=== PATIENT | female | born 1950 | race Caucasian/White ===

== ENCOUNTER 2022-05-08 16:22 | Inpatient (IN) | payer OTHER ==
--- NOTE | 2022-05-08 17:43 | RAD REPORT ---
EXAM DESCRIPTION: RAD - Chest Single View - 05/08/2022 5:34 pm CLINICAL HISTORY: COUGH, positive home COVID test COMPARISON: Single-view chest December 2008 TECHNIQUE: AP portable chest image was obtained 05/08/2022 5:34 pm . FINDINGS: Lungs are slightly underinflated. Under penetrated portable technique and large body habit us affects limit detail as well. No dense consolidation or mass lesions seen. Failure and volume over load are not suspected. Lung markings are prominent in the mid and lower lung rodney. Interstitial ed michelle or infiltrate is certainly possible. Heart and vasculature are normal. No measurable pleural effusion and no pneumothorax. No acute bony abnormality seen. No acute aortic findings suspected. IMPRESSION: Technically limited portable study showing prominent mid and lower lung field interstiti al findings that could be edema or infiltrate.
--- NOTE | 2022-05-08 18:05 | EDPHYS ---
Physician Documentation [facility] Name: Amna Lundberg Age: 71 yrs Sex: Female : 1950 Arrival Date: 05/08/2022 Time: 16:32 Bed 17 Private MD: ED Physician Markus Wagoner HPI: 05/08 17:27 This 71 yrs old Female presents to ER via Wheelchair with complaints of Cough, rn Congestion, Diarrhea, Breathing Difficulty. 17:27 The patient or guardian reports cough, difficulty breathing. Onset: The rn symptoms/episode began/occurred 1 week(s) ago. Severity of symptoms: At their worst the symptoms were moderate, in the emergency department the symptoms are unchanged. Modifying factors: The symptoms are alleviated by nothing, the symptoms are aggravated by nothing. Associated signs and symptoms: Pertinent positives: diarrhea, fever, rhinorrhea. The patient has not experienced similar symptoms in the past. The patient has not recently seen a physician. Pt reports COVID + after one week of cough/congestion/sob/diarrhea and getting more weak. Took home COVID test and was +. Has COPD. Reports lack of taste, and not eating/drinking lately. . Historical: - Allergies: 17:05 No Known Allergies; kr3 - PMHx: 17:05 Hypertensive disorder; Chronic obstructive lung disease; Chronic pain; Depressive kr3 disorder; - PSHx: 17:05 Total abdominal hysterectomy; kr3 - Immunization history:: Adult Immunizations not up to date. - Social history:: Smoking status: Patient/guardian denies using tobacco, the patient reports quitting approximately 35 years ago. - Family history:: not pertinent. - Hospitalizations: : No recent hospitalization is reported. 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 Exam: 17:27 Constitutional: This is a well developed, well nourished patient who is awake, alert, rn and in no acute distress. Head/Face: Normocephalic, atraumatic. ENT: dry MM, no stridor Cardiovascular: Tachycardic, regular. No pulse deficits. Respiratory: Moderate tachypnea, no retractions. + faint wheezing. Abdomen/GI: Soft, non-tender Skin: Warm, dry MS/ Extremity: Pulses equal, no cyanosis Neuro: Awake and alert, GCS 15 18:37 ECG was reviewed by the Attending Physician. rn Vital Signs: 16:58 BP 147 / 82; Pulse 108; Resp 22; Temp 98.4; Pulse Ox 98% on R/A; Weight 104.33 kg; kr3 Height 5 ft. 3 in. (160.02 cm); Pain 3/10; 18:30 BP 148 / 69; Pulse 114; Resp 20; Pulse Ox 95% on R/A; eh3 19:30 BP 117 / 74; Pulse 112; Resp 16; Pulse Ox 93% on R/A; eh3 21:05 BP 147 / 101; Pulse 105; Resp 19; Pulse Ox 94% on R/A; ll3 21:56 BP 130 / 58; Pulse 102; Resp 12; Pulse Ox 97% on 2 lpm NC; ll3 16:58 Body Mass Index 40.74 (104.33 kg, 160.02 cm) kr3 MDM: 16:33 Patient medically screened. rn 18:01 Differential Diagnosis: Bronchitis Upper Respiratory Infection Viral Syndrome Pneumonia rn Other COPD exacerbation, dehydration, weakness, electrolyte disorder. Data reviewed: vital signs, nurses notes, lab test result(s), radiologic studies, plain films, and as a result, I will admit patient. Counseling: I had a detailed discussion with the patient and/or guardian regarding: the historical points, exam findings, and any diagnostic results supporting the discharge/admit diagnosis, lab results, radiology results, the need for further work-up and treatment in the hospital. Response to treatment: the patient's symptoms have mildly improved after treatment, and as a result, I will admit patient. Admission orders: after a detailed discussion of the patient's condition and case, the admit orders are written by me. ED course: Pt with COVID infection, Acute COPD exacerbation with generalized weakness and dehydration. Will admit to hospitalist for further care. . 05/08 16:49 Order name: COVID-19/FLU A+B; Complete Time: 18:08 rn 05/08 17:05 Order name: BMP; Complete Time: 18:36 rn 05/08 17:05 Order name: Blood Culture Adult (2) rn 05/08 17:05 Order name: CBC with Diff; Complete Time: 18:31 rn 05/08 17:05 Order name: Hepatic Function; Complete Time: 18:36 rn 05/08 17:05 Order name: Magnesium; Complete Time: 18:36 rn 05/08 17:05 Order name: NT PRO-BNP; Complete Time: 18:36 rn 05/08 17:05 Order name: PT-INR; Complete Time: 18:31 rn 05/08 17:05 Order name: Ptt, Activated; Complete Time: 18:31 rn 05/08 17:05 Order name: Troponin HS; Complete Time: 18:36 rn 05/08 23:47 Order name: Lactate w/ 2H reflex if indic.; Complete Time: 00:16 EDMS 05/09 02:49 Order name: CBC with Automated Diff; Complete Time: 03:03 EDMS 05/09 03:12 Order name: Basic Metabolic Panel; Complete Time: 03:44 EDMS 05/09 03:12 Order name: Phosphorus; Complete Time: 03:44 EDMS 05/08 16:46 Order name: XRAY Chest (1 view); Complete Time: 18:01 rn 05/08 18:03 Interpretation: Abnormal. rn 05/08 17:05 Order name: EKG; Complete Time: 17:06 rn 05/08 17:05 Order name: Cardiac monitoring; Complete Time: 18:11 rn 05/08 17:05 Order name: EKG - Nurse/Tech; Complete Time: 18:37 rn 05/08 17:05 Order name: IV Saline Lock; Complete Time: 20:55 rn 05/08 17:05 Order name: Labs collected and sent; Complete Time: 18:10 rn 05/08 17:05 Order name: O2 Per Protocol; Complete Time: 18:11 rn 05/08 17:05 Order name: O2 Sat Monitoring; Complete Time: 18:11 rn 05/08 19:43 Order name: CT Chest Abdomen Pelvis W/O Contrast sb4 05/09 03:12 Order name: Lipid Profile; Complete Time: 03:44 EDMS 05/09 03:12 Order name: Magnesium; Complete Time: 03:44 EDMS EC:37 Rate is 104 beats/min. Rhythm is regular. QRS [place] is Normal. [place] interval is normal. rn QRS interval is normal. QT interval is normal. No Q waves. T waves are Normal. No ST changes noted. Clinical impression: Sinus tachycardia. Interpreted by me. Reviewed by me. Administered Medications: 17:45 Drug: Xopenex (levalbuterol) (3) 1.25 mg Route: Inhalation; eh3 21:47 Follow up: Response: No adverse reaction ll3 20:37 Drug: SOLU-Medrol (methylPrednisoLONE) 125 mg Route: IVP; Site: right forearm; ll3 21:47 Follow up: Response: No adverse reaction ll3 20:37 Drug: NS 0.9% 1000 ml Route: IV; Rate: 1000 ml; Site: right forearm; ll3 20:55 Drug: Magnesium Sulfate 2 grams Route: IVPB; Infused Over: 2 hrs; Site: right forearm; ll3 21:46 Follow up: Response: No adverse reaction; IV Status: Completed infusion; IV Intake: [id number] Disposition Summary: 05/08/22 18:04 Hospitalization Ordered Hospitalization Status: Observation rn Provider: Pop Maguire rn Condition: Stable rn Problem: new rn Symptoms: have improved rn Bed/Room Type: Standard rn Location: Telemetry/MedSurg (observation)(05/09/22 14:03) Room Assignment: [facility](05/09/22 14:03) dw Diagnosis - COPD/ Chronic obstructive pulmonary disease with (acute) exacerbation rn - SARS-associated coronavirus as the cause of diseases classified elsewhere rn Forms: - Medication Reconciliation Form rn - SBAR form rn Signatures: Dispatcher [employer] EDNM Robyn Lund RN RN Markus Lucas MD MD rn Loubet, Lynsea RN RN ll3 Martha Gallagher RN RN eh3 Lisa Echevarria RN RN kr3 Zainab Malik PA-C PA-C sb4 Corrections: (The following items were deleted from the chart) 18:51 18:04 Telemetry/MedSurg (observation) madan lewis 18:51 18:04 madan lewis 05/09 14:03 05/08 18:51 [facility] ER HOLD dw joshua 05/09 14:03 01/01 18:51 ERHOLD- dw dw
--- NOTE | 2022-05-08 18:05 | ER ---
Nurse's Notes [facility] Name: Amna Lundberg Age: 71 yrs Sex: Female : 1950 Arrival Date: 05/08/2022 Time: 16:32 Bed 17 Private MD: Diagnosis: COPD/ Chronic obstructive pulmonary disease with (acute) exacerbation;SARS-associated coronavirus as the cause of diseases classified elsewhere Presentation: 05/08 16:58 Chief complaint: Patient states: I tested positive for COVID at home. I have N/V/D for kr3 about a week. I also have COPD and I just don't feel good I told my daughter " I can't take it anymore. I can't eat or take my meds because I don't feel good. Coronavirus screen: Vaccine status: Patient reports receiving the 2nd dose of the covid vaccine. Client denies travel out of the [place] in the last 14 days. Ebola Screen: Patient denies travel to an Ebola-affected area in the 21 days before illness onset. Resp Distress? Mild respiratory distress is noted. Initial Sepsis Screen: Does the patient meet any 2 criteria? No. Patient's initial sepsis screen is negative. Does the patient have a suspected source of infection? No. Patient's initial sepsis screen is negative. Risk Assessment: Do you want to hurt yourself or someone else? Patient reports no desire to harm self or others. Onset of symptoms was May 02, 2022. 16:58 Method Of Arrival: Wheelchair kr3 16:58 Acuity: DOMENICO 3 kr3 Triage Assessment: 17:07 General: Appears distressed, uncomfortable, Behavior is calm, cooperative, appropriate kr3 for age. Pain:. Historical: - Allergies: 17:05 No Known Allergies; kr3 - PMHx: 17:05 Hypertensive disorder; Chronic obstructive lung disease; Chronic pain; Depressive kr3 disorder; - PSHx: 17:05 Total abdominal hysterectomy; kr3 - Immunization history:: Adult Immunizations not up to date. - Social history:: Smoking status: Patient/guardian denies using tobacco, the patient reports quitting approximately 35 years ago. - Family history:: not pertinent. - Hospitalizations: : No recent hospitalization is reported. Screenin:30 [facility] ED Fall Risk Assessment (Adult) History of falling in the last 3 months, eh3 including since admission No falls in past 3 months (0 pts) Confusion or Disorientation No (0 pts) Intoxicated or Sedated No (0 pts) Impaired Gait Yes (1 pt) Mobility Assist Device Used Yes (1 pt) Altered Elimination Yes (1 pt) Score/Fall Risk Level 3 or more points = High Risk Oriented to surroundings, Maintained a safe environment, Educated pt \\T\\ family on fall prevention, incl call for assistance when getting out of bed, Assessed \\T\\ reinforced patient's understanding of fall precautions, Hourly rounding (assess needs \\T\\ fall precautionary measures) done. Abuse screen: Denies threats or abuse. Denies injuries from another. Nutritional screening: No deficits noted. Tuberculosis screening: No symptoms or risk factors identified. Assessment: 17:30 General: Appears in no apparent distress. uncomfortable, Behavior is cooperative, eh3 appropriate for age, anxious. Pain: Complains of pain in abdomen. Neuro: Level of Consciousness is awake, alert, obeys commands, Oriented to person, place, time, situation. Cardiovascular: Capillary refill < 3 seconds Patient's skin is warm and dry. Respiratory: Airway is patent Respiratory effort is even, labored, Respiratory pattern is regular, symmetrical, Breath sounds are clear bilaterally. GI: Abdomen is round non-distended, Reports diarrhea, intolerance of fluids, intolerance of food, nausea, vomiting. : No signs and/or symptoms were reported regarding the genitourinary system. EENT: No signs and/or symptoms were reported regarding the EENT system. Derm: No signs and/or symptoms reported regarding the dermatologic system. Musculoskeletal: No signs and/or symptoms reported regarding the musculoskeletal system. Circulation, motion, and sensation intact. Range of motion: intact in all extremities. 18:30 Reassessment: Patient appears in no apparent distress at this time. Patient and/or eh3 family updated on plan of care and expected duration. Pain level reassessed. 19:30 Reassessment: Patient appears in no apparent distress at this time. Patient and/or eh3 family updated on plan of care and expected duration. Pain level reassessed. Vital Signs: 16:58 BP 147 / 82; Pulse 108; Resp 22; Temp 98.4; Pulse Ox 98% on R/A; Weight 104.33 kg; kr3 Height 5 ft. 3 in. (160.02 cm); Pain 3/10; 18:30 BP 148 / 69; Pulse 114; Resp 20; Pulse Ox 95% on R/A; eh3 19:30 BP 117 / 74; Pulse 112; Resp 16; Pulse Ox 93% on R/A; eh3 21:05 BP 147 / 101; Pulse 105; Resp 19; Pulse Ox 94% on R/A; ll3 21:56 BP 130 / 58; Pulse 102; Resp 12; Pulse Ox 97% on 2 lpm NC; ll3 16:58 Body Mass Index 40.74 (104.33 kg, 160.02 cm) kr3 ED Course: 16:32 Patient arrived in ED. rg4 16:33 Markus Wagoner MD is Attending Physician. rn 17:04 Triage completed. kr3 17:18 Stephanie Dunne, RN is Primary Nurse. ss 17:18 COVID-19/FLU A+B Sent. ss 17:21 COVID swab sent to lab. Flu and/or RSV swab sent to lab. mm9 17:36 XRAY Chest (1 view) In Process Unspecified. EDMS 18:00 Initial lab(s) drawn, by mt, sent to lab. First set of blood cultures drawn. mm9 18:04 Pop Maguire is Hospitalizing Provider. rn 18:10 Troponin HS Sent. mm9 18:10 Ptt, Activated Sent. mm9 18:10 PT-INR Sent. mm9 18:10 NT PRO-BNP Sent. mm9 18:10 Magnesium Sent. mm9 18:10 Hepatic Function Sent. mm9 18:10 CBC with Diff Sent. mm9 18:10 Blood Culture Adult (2) Sent. mm9 18:10 BMP Sent. mm9 18:11 Patient has correct armband on for positive identification. Bed in low position. Call mm9 light in reach. Side rails up X2. Adult w/ patient. Warm blanket given. environmental monitoring technician on. Pulse ox on. NIBP on. 18:37 Blood Culture Adult (2) Sent. mm9 18:38 EKG done, by ED staff, reviewed by Markus Wagoner MD. mm9 19:00 Patient placed in an exam room, on a stretcher, on pulse oximetry. ll3 19:10 Primary Nurse role handed off by Stephanie Dunne, RN mw2 19:15 Assisted with bedpan. Assisted with dressing. Cleaned of incontinence. mb4 20:12 Inserted saline lock: 24 gauge in right forearm, using aseptic technique. ds4 23:23 No provider procedures requiring assistance completed. Patient admitted, IV remains in ll3 place. Administered Medications: 17:45 Drug: Xopenex (levalbuterol) (3) 1.25 mg Route: Inhalation; eh3 21:47 Follow up: Response: No adverse reaction ll3 20:37 Drug: SOLU-Medrol (methylPrednisoLONE) 125 mg Route: IVP; Site: right forearm; ll3 21:47 Follow up: Response: No adverse reaction ll3 20:37 Drug: NS 0.9% 1000 ml Route: IV; Rate: 1000 ml; Site: right forearm; ll3 20:55 Drug: Magnesium Sulfate 2 grams Route: IVPB; Infused Over: 2 hrs; Site: right forearm; ll3 21:46 Follow up: Response: No adverse reaction; IV Status: Completed infusion; IV Intake: [id number] Medication: 23:24 VIS not applicable for this client. ll3 Intake: 21:46 IV: 50ml; Total: 50ml. ll3 Outcome: 18:04 Decision to Hospitalize by Provider. rn 23:23 Admitted to ER Hold. Please see [facility] for further documentation. ll3 23:23 Condition: stable 23:23 Instructed on the need for admit. 05/09 14:52 Patient left the ED. ap3 Signatures: Dispatcher [employer] EDMS Markus Wagoner MD MD rn Smirch, Shelby, RN RN Sudarshan Villalta ds4 Rachael Bella rg4 Gracie Shaw RN RN ap3 Pippa Hawkins mw2 Polina Pike mb4 Sobeida Louis RN RN ll3 Martha Gallagher RN RN 3 Lisa Echevarria RN RN nory3 Romy Bowen mm9 Corrections: (The following items were deleted from the chart) 05/08 20:08 17:30 Client placed on continuous cardiac and pulse oximetry monitoring. NIBP eh3 monitoring applied. eh3
[2022-05-08 18:06] LABS: SARS-COV-2 RT PCR POSITIVE (NEGATIVE)
[2022-05-08 18:17] LABS: Absolute Lymphocytes (CBC) 0.9 K/uL (0.7-4.9); Hematocrit 35.1 % (36.0-45.0); Lymphocytes % 11.6 % (15.3-44.8); MCV 85.8 fL (80-100); MPV 9.3 fL (7.6-11.3); RBC Red Blood Cell Count 4.09 M/uL (3.86-4.86)
[2022-05-08 18:23] LABS: Protime INR 1.15
[2022-05-08] MEDS ORDERED: NA CHLORIDE 0.9% 1,000 ML ONE ×2 (18:31→23:06)
[2022-05-08] MEDS ORDERED: METHYLPREDNISOLONE 125 MG INJ ONE (18:31)
[2022-05-08] MEDS ORDERED: LEVALBUTEROL 1.25 MG/3 ML NEB ONE (18:31)
[2022-05-08 18:35] LABS: Albumin 3.5 g/dL (3.4-5.0); Bilirubin Direct 0.1 mg/dL (0-0.2); Bilirubin Total 0.4 mg/dL (0.2-1.0); Magnesium 1.5 mg/dL (1.6-2.4); Potassium 4.2 mmol/L (3.5-5.1); Protein, Total 8.6 g/dL (6.4-8.2); Troponin High Sensitivity 13.9 pg/mL (<58.9)
--- NOTE | 2022-05-08 19:15 | P.HP ---
Certification for Inpatient Patient admitted to: Inpatient With expected LOS: <2 Midnights Patient will require the following post-hospital care: None Practitioner: I am a practitioner with admitting privileges, knowledge of patient current condition, hospital course, and medical plan of care. Services: Services provided to patient in accordance with Admission requirements found in Title 42 Section 412.3 of the Code of Federal Regulations Patient History Date of Service: 05/08/22 Reason for admission: COVID, Dehydration History of Present Illness: Patient is a 71 year old female with past medical history of hypertension, COPD, and anemia who presented to the emergency department with complaints of shortness of breath, fever, nausea, vomiting, diarrhea, and covid. She was found to be tachycardic, tachypneic, and febrile. Her labs are significant for hgb 11.5, BUN 43, Cr 1.91, mag 1.5, alk phos 168, BNP 464, covid+. Chest xray showed "Technically limited portable study showing prominent mid and lower lung field interstitial findings that could be edema or infiltrate." She received 1L fluid, breathing treatment, solumedrol, and supplemental magnesium in the emergency department. She will be admitted for further management. Allergies No Known Drug Allergies Allergy (Unverified 04/17/14 00:10) Unknown Home medications list reviewed: Yes - Past Medical/Surgical History Diabetic: No -: Hypertension -: COPD -: Appendectomy -: Hysterectomy -: Cholecystectomy Psychosocial/ Personal History: Patient lives at home with her daughter. - Family History Mother -: Cancer - Social History Smoking Status: Former smoker Alcohol use: No CD- Drugs: No Caffeine use: Yes Place of Residence: Home Review of Systems General: Fever, Weakness Respiratory: Shortness of Breath Gastrointestinal: Nausea, Vomiting, Diarrhea Physical Examination - Vital Signs Temperature: 98.4 F Blood Pressure: 147/82 Pulse: 108 Respirations: 22 Pulse Ox (%): 98 - Physical Exam General: Alert, In no apparent distress, Obese HEENT: Atraumatic, PERRLA, EOMI, Sclerae nonicteric Neck: Supple, 2+ carotid pulse no bruit, No LAD, Without JVD or thyroid abnormality Respiratory: Clear to auscultation bilaterally, Normal air movement Cardiovascular: Regular rate/rhythm, Normal S1 S2 Gastrointestinal: Normal bowel sounds, No tenderness Musculoskeletal: No tenderness Integumentary: No rashes Neurological: Normal speech, Normal strength at 5/5 x4 extr, Normal tone, Normal affect - Studies Laboratory Data (last 24 hrs) 05/08/22 18:00: PT 12.6 H, INR 1.15, APTT 24.6 05/08/22 18:00: WBC 7.40, Hgb 11.5 L, Hct 35.1 L, Plt Count 229 05/08/22 18:00: Sodium 138, Potassium 4.2, BUN 43 H, Creatinine 1.91 H, Glucose 109 H, Magnesium 1.5 L, Total Bilirubin 0.4, AST 22, ALT 21, Alkaline Phosphatase 168 H Assessment and Plan - Problems (Diagnosis) (1) COVID-19 Current Visit: Yes Status: Acute (2) Hypertension Current Visit: Yes Status: Chronic Qualifiers: Hypertension type: primary hypertension Qualified Code(s): I10 - Essential (primary) hypertension (3) RUTHIE (acute kidney injury) Current Visit: Yes Status: Acute (4) COPD (chronic obstructive pulmonary disease) Current Visit: Yes Status: Chronic Qualifiers: COPD type: unspecified COPD Qualified Code(s): J44.9 - Chronic obstructive pulmonary disease, unspecified (5) Anemia Current Visit: Yes Status: Chronic Qualifiers: Anemia type: unspecified type Qualified Code(s): D64.9 - Anemia, unspecified (6) Dehydration Current Visit: Yes Status: Acute - Plan Patient is admitted for further management of COVID-19/dehydration. Continue supportive measures with supplemental oxygen, breathing treatments, antitussives, decongestants. Patient is not requiring supplemental O2 at this time. IV hydration. Physical therapy consult. Solu-Medrol, incentive spirometry, vitamin C and zinc ordered daily. Patient meet sepsis criteria although source is viral, COVID-19. Blood cultures obtained. Isolation precautions in place. RUTHIE likely prerenal secondary to dehydration. Patient reports she has not been able to hold anything down and had n/v/d. Will obtain CT chest/abdomen/pelvis to rule out any other infection. Monitor and replete electrolytes per protocol. Reconcile and continue home medications. Lovenox for VTE prophylaxis. Full code. Discharge Plan: Home Plan to discharge in: 48 Hours - Advance Directives Does patient have a Living Will: No Does patient have a Durable POA for Healthcare: No - Code Status/Comfort Care Code Status Assessed: Yes Code Status: Full Code Physician Review: Patient Assessed, Agree with Above Assessment and Plan Critical Care: No Time Spent Managing Pts Care (In Minutes): 50
[2022-05-08] MEDS ORDERED: Magnesium Sulfate 2gm IVPB 2 G/50 ML BAG IV ONE (20:01)
[2022-05-08] MEDS: NA CHLORIDE 0.9% 1,000 ML IV SCH (22:55)
[2022-05-08] MEDS ORDERED: ACETAMINOPHEN 500 MG TAB PO PRN (22:55)
[2022-05-08] MEDS ORDERED: ONDANSETRON 4 MG/2 ML VIAL IV PRN (22:55)
[2022-05-08] MEDS ORDERED: BENZONATATE 100 MG CAP PO PRN (22:55)
[2022-05-08] MEDS ORDERED: IPRATROPIUM BROM 0.5MG/2.5ML NEB PRN (22:55)
[2022-05-08] MEDS ORDERED: ALBUTEROL 2.5 MG/3 ML NEB SOL NEB PRN (22:55)
[2022-05-08] MEDS ORDERED: GUAIFENESIN 600 MG SA TAB PO PRN (22:55)
[2022-05-08 23:13] VITALS: BMI 40.7
[2022-05-09] MEDS ORDERED: METHYLPREDNISOLONE 40 MG INJ IV SCH (01:00)
[2022-05-09 02:47] LABS: Absolute Lymphocytes (CBC) 0.3 K/uL (0.7-4.9); Hematocrit 31.4 % (36.0-45.0); Lymphocytes % 4.8 % (15.3-44.8); MCV 86.6 fL (80-100); RBC Red Blood Cell Count 3.63 M/uL (3.86-4.86)
[2022-05-09 03:03] LABS: Magnesium 2.4 mg/dL (1.6-2.4)
[2022-05-09] MEDS: METHYLPREDNISOLONE 40 MG INJ IV SCH ×4 (05:00→17:09)
[2022-05-09] MEDS ORDERED: METHYLPREDNISOLONE 40 MG INJ ONE ×2 (05:25→09:18)
[2022-05-09] MEDS: ENOXAPARIN 30 MG/0.3 ML SQ SCH (09:00)
[2022-05-09] MEDS: ASCORBIC ACID 500 MG TABLET PO SCH (09:00)
[2022-05-09] MEDS: ZINC SULFATE 220 MG CAP PO SCH (09:00)
[2022-05-09] MEDS ORDERED: ZINC SULFATE 220 MG CAP ONE (09:18)
[2022-05-09] MEDS ORDERED: ASCORBIC ACID 500 MG TABLET ONE (09:18)
[2022-05-09] MEDS ORDERED: NA CHLORIDE 0.9% 1,000 ML ONE (09:19)
[2022-05-09] MEDS ORDERED: ENOXAPARIN 30 MG/0.3 ML SQ ONE (09:19)
[2022-05-09] MEDS: NA CHLORIDE 0.9% 1,000 ML IV SCH ×2 (12:15→22:25)
--- NOTE | 2022-05-09 17:37 | P.PN ---
Subjective Date of Service: 05/09/22 Chief Complaint: COVID, Dehydration Patient reports generalized weakness. She still complaining of nausea and has not tolerated diet. Physical Examination - Vital Signs Temperature: 98.8 F Blood Pressure: 178/107 Pulse: 119 Respirations: 20 Pulse Ox (%): 96 - Studies Laboratory Data (last 24 hrs) 05/08/22 18:00: PT 12.6 H, INR 1.15, APTT 24.6 05/08/22 18:00: WBC 7.40, Hgb 11.5 L, Hct 35.1 L, Plt Count 229 05/08/22 18:00: Sodium 138, Potassium 4.2, BUN 43 H, Creatinine 1.91 H, Glucose 109 H, Magnesium 1.5 L, Total Bilirubin 0.4, AST 22, ALT 21, Alkaline Phosphatase 168 H Assessment And Plan - Current Problems (Diagnosis) (1) RUTHIE (acute kidney injury) Current Visit: Yes Status: Acute (2) COVID-19 Current Visit: Yes Status: Acute (3) Dehydration Current Visit: Yes Status: Acute (4) COPD (chronic obstructive pulmonary disease) Current Visit: Yes Status: Chronic Qualifiers: COPD type: unspecified COPD Qualified Code(s): J44.9 - Chronic obstructive pulmonary disease, unspecified - Plan Physical Exam General: Alert, In no apparent distress, Obese Respiratory: Clear to auscultation bilaterally, Normal air movement Cardiovascular: Regular rate/rhythm, Normal S1 S2 Gastrointestinal: Normal bowel sounds, No tenderness Musculoskeletal: No tenderness Integumentary: No rashes Neurological: No focal motor deficit. Plan: Continue supportive measures. Antiemetics as needed. IV fluid. Diet as tolerated. Continue IV steroid. Monitor renal function for improvement. Resume home antihypertensives. Possible discharge in a.m.
--- NOTE | 2022-05-09 22:10 | P.PN ---
Date of Service: 05/10/22 Subjective: constipated; no BM in ~4 days with slight nausea ROS: A complete review of systems was performed and is negative except as mentioned above Physical Exam: Gen: AOx3; fatigued appearing HEENT: normal conjunctiva, sclera anicteric CV: regular rate & rhythm with intermittently tachycardia, no edema Pulm: non-labored respirations, diminished at bases bilaterally Abd: soft, non-tender, non-distended Neuro: normal speech, normal affect, moves all extremities vitals reviewed Problem List RUTHIE COVID-19 pneumonia Constipation Dehydration acute on chronic COPD exacerbation Continue supportive measures. Antiemetics as needed. IV fluid. Diet as tolerated. transition IV to PO steroid Resume home antihypertensives. nausea and constipation has some occasional constipation at home and takes a pill that "Clears her out" but unable to tell me what pill will try miralax, add stool softener encourage ambulation VTE: lovenox Code: full Dispo: home, ~1-2 days Time Spent Managing Pts Care (In Minutes): 35
[2022-05-10] MEDS: METHYLPREDNISOLONE 40 MG INJ IV SCH ×2 (01:21→08:20)
[2022-05-10 05:43] LABS: Hematocrit 35.5 % (36.0-45.0); MCV 86.2 fL (80-100); MPV 9.1 fL (7.6-11.3); RBC Red Blood Cell Count 4.12 M/uL (3.86-4.86)
[2022-05-10 06:44] LABS: C-Reactive Protein 18.3 mg/L (<3.00); Ferritin 179.6 ng/mL (8-388); Potassium 4.2 mmol/L (3.5-5.1)
[2022-05-10] MEDS: NA CHLORIDE 0.9% 1,000 ML IV SCH ×2 (08:19→16:38)
[2022-05-10] MEDS: ENOXAPARIN 30 MG/0.3 ML SQ SCH (08:20)
[2022-05-10] MEDS: POTASS/SODIUM PHOSPHATE 1 PKT POWD.PACK PO SCH ×2 (08:20→09:56)
[2022-05-10] MEDS: ASCORBIC ACID 500 MG TABLET PO SCH (08:20)
[2022-05-10] MEDS: ZINC SULFATE 220 MG CAP PO SCH (08:20)
[2022-05-10] MEDS ORDERED: POLYETHYL GLY 3350 17 GM/DOSE PO ONE (15:00)
[2022-05-10] MEDS: predniSONE 20 MG TAB PO SCH (16:37)
[2022-05-10] MEDS ORDERED: ALBUTEROL 2.5 MG/3 ML NEB SOL NEB PRN (17:00)
[2022-05-10] MEDS: DOCUSATE NA 100 MG CAP PO SCH (21:00)
[2022-05-11 00:13] VITALS: O2SAT 93
[2022-05-11] MEDS: NA CHLORIDE 0.9% 1,000 ML IV SCH (05:49)
[2022-05-11 07:27] LABS: Hematocrit 29.6 % (36.0-45.0); MPV 8.9 fL (7.6-11.3); RBC Red Blood Cell Count 3.48 M/uL (3.86-4.86)
[2022-05-11 07:32] LABS: Specific Gravity 1.012 (1.005-1.030); Urine Bacteria <20 /HPF (<20); Urine Bilirubin NEGATIVE (Negative); Urine Blood Negative (Negative); Urine Clarity Clear (Clear); Urine Color Light-Yellow (Yellow); Urine Glucose NEGATIVE (Negative); Urine Protein TRACE (Negative); Urine RBC <5 /HPF (None Seen); Urine Urobilinogen Normal (Normal); Urine pH 5.5 (5.0-7.0)
[2022-05-11 07:39] LABS: C-Reactive Protein 7.24 mg/L (<3.00); Potassium 4.3 mmol/L (3.5-5.1)
[2022-05-11 07:41] LABS: Magnesium 1.4 mg/dL (1.6-2.4)
[2022-05-11] MEDS ORDERED: Magnesium Sulfate 2gm IVPB 2 G/50 ML BAG IV ONE (08:00)
[2022-05-11] MEDS: ZINC SULFATE 220 MG CAP PO SCH (08:24)
[2022-05-11] MEDS: ENOXAPARIN 30 MG/0.3 ML SQ SCH (08:24)
[2022-05-11] MEDS: ASCORBIC ACID 500 MG TABLET PO SCH (08:24)
[2022-05-11] MEDS: predniSONE 20 MG TAB PO SCH (08:24)
[2022-05-11] MEDS: DOCUSATE NA 100 MG CAP PO SCH (08:25)
[2022-05-11 08:32] VITALS: TEMP 96.8
[2022-05-11 08:48] LABS: Platelet Estimate ADEQ
[2022-05-11 08:49] LABS: Blood Morphology Comment NOT SEEN (NOT SEEN); White Blood Cell Scan OK (OK)
[2022-05-11 12:08] VITALS: BP 131/75
--- NOTE | 2022-05-11 16:09 | EKG ---
Test Date: 2022-05-08 Test Time: 18:26:38 Mobile Paint Specialist: SHELL MEASUREMENT RESULTS: Intervals: Rate: 104 [place]: 146 QRSD: 84 QT: 340 QTc: 447 [place]: P: 76 [place]: 146 QRS: 27 T: 101 INTERPRETIVE STATEMENTS: Sinus tachycardia Nonspecific ST and T wave abnormality Abnormal ECG No previous ECG available for comparison Electronically Signed On 05-11-22 16:06:34 WAFFLE MACHINE OPERATOR by Victoriano Ramos
--- NOTE | 2022-05-12 23:26 | P.DS ---
Admission Date: 05/08/22 Discharge Date: 05/11/22 Disposition: ROUTINE DISCHARGE Discharge Condition: GOOD Reason for Admission: COVID, Dehydration Brief History of Present Illness: 71 year old female with past medical history of hypertension, COPD, and anemia who presented to the emergency department with complaints of shortness of breath, fever, nausea, vomiting, diarrhea, and covid. She was found to be tachycardic, tachypneic, and febrile. Her labs are significant for hgb 11.5, BUN 43, Cr 1.91, mag 1.5, alk phos 168, BNP 464, covid+. Chest xray showed "Technically limited portable study showing prominent mid and lower lung field interstitial findings that could be edema or infiltrate." She received 1L fluid, breathing treatment, solumedrol, and supplemental magnesium in the emergency department. She will be admitted for further management. Hospital Course: Problem List RUTHIE COVID-19 pneumonia Constipation Dehydration acute on chronic COPD exacerbation Patient presented with not feeling well, COVID, dehydrated, and constipated. Renal function improved with IV fluids. She improved with steroids, miralax, IV fluids, and oxygen supplementation. On day of discharge, she was eating well, had a BM, and was breathing comfortably on room air. She was deemed stable for discharge home. Prescribed 4 more days of prednisone 20mg twice daily. Follow up PCP within 1 week Blood pressure ranged from normal to mildly elevated. Her home blood pressure medications - amlodipine-Benazepril and spironolactone were held secondary to her decreased renal function and stable blood pressure. Recommend to continue to hold these medications. Follow up with PCP within 1 week to be evaluated for restarting these medications. Vital Signs/Physical Exam: Temp Pulse Resp BP Pulse Ox 96.8 F 84 18 131/75 95 05/11/22 12:00 05/11/22 12:00 05/11/22 12:00 05/11/22 12:00 05/11/22 12:00 Physical Exam: Gen: AOx3; NAD HEENT: normal conjunctiva, sclera anicteric CV: regular rate & rhythm, no edema Pulm: non-labored respirations, diminished at bases bilaterally Abd: soft, non-tender, non-distended Neuro: normal speech, normal affect, moves all extremities Laboratory Data at Discharge: WBC 6.90 K/uL (4.3-10.9) 05/11/22 07:11 Hgb 9.7 g/dL (12.0-15.0) L D 05/11/22 07:11 Hct 29.6 % (36.0-45.0) L 05/11/22 07:11 Plt Count 234 K/uL (152-406) D 05/11/22 07:11 PT 12.6 SECONDS (9.5-12.5) H 05/08/22 18:00 INR 1.15 05/08/22 18:00 APTT 24.6 SECONDS (24.3-36.9) 05/08/22 18:00 Sodium 139 mmol/L (136-145) 05/11/22 07:11 Potassium 4.3 mmol/L (3.5-5.1) 05/11/22 07:11 BUN 28 mg/dL (7-18) H 05/11/22 07:11 Creatinine 1.49 mg/dL (0.55-1.02) H 05/11/22 07:11 Glucose 113 mg/dL (74-106) H 05/11/22 07:11 Phosphorus 2.0 mg/dL (2.5-4.9) L 05/09/22 02:10 Magnesium 1.4 mg/dL (1.6-2.4) L* 05/11/22 07:11 Total Bilirubin 0.4 mg/dL (0.2-1.0) 05/08/22 18:00 AST 22 U/L (15-37) 05/08/22 18:00 ALT 21 U/L (13-56) 05/08/22 18:00 Alkaline Phosphatase 168 U/L (45-117) H 05/08/22 18:00 Triglycerides 127 mg/dL (<150) 05/09/22 02:10 Cholesterol 179 mg/dL (<200) 05/09/22 02:10 HDL Cholesterol 39 mg/dL (40-60) L 05/09/22 02:10 Cholesterol/HDL Ratio 4.59 05/09/22 02:10 Home Medications: Amlodipine Besylate/Benazepril [Amlodipine-Benazepril 10-40 mg] 1 each PO DAILY 05/10/22 Atorvastatin Calcium 40 mg PO DAILY 05/10/22 Esomeprazole Mag Trihydrate [Nexium] 40 mg PO DAILY 05/10/22 Hydrocodone Bit/Acetaminophen [Hydrocodon-Acetaminoph 7.5-325] 1 tab PO TID PRN 05/10/22 Levothyroxine Sodium [Levothyroxine] 100 mcg PO BEDTIME 05/10/22 Pioglitazone HCl [Actos] 15 mg PO DAILY 05/10/22 Spironolactone 25 mg PO DAILY 05/10/22 predniSONE [Prednisone*] 20 mg PO BIDL 4 Days #8 tab 05/11/22 New Medications: predniSONE [Prednisone*] 20 mg PO BIDL 4 Days #8 tab Physician Discharge Instructions: Patient presented with not feeling well, COVID, dehydrated, and constipated. Renal function improved with IV fluids. She improved with steroids, miralax, IV fluids, and oxygen supplementation. On day of discharge, she was eating well, had a BM, and was breathing comfortably on room air. She was deemed stable for discharge home. Prescribed 4 more days of prednisone 20mg twice daily. Follow up PCP within 1 week Blood pressure ranged from normal to mildly elevated. Her home blood pressure medications - amlodipine-Benazepril and spironolactone were held secondary to her decreased renal function and stable blood pressure. Recommend to continue to hold these medications. Follow up with PCP within 1 week to be evaluated for restarting these medications. Followup: NONE,NONE [Primary Care Provider] - Time spent managing pt's care (in minutes): 45
== END 2022-05-11 13:38 | disposition home or self-care (01) | DRG 871 ==
LOC: ER 16:22 → ERHOLD 19:05 → 4TH 05-09 14:31
PROVIDERS: ADMIT Internal Medicine; ATTEND Hospitalist
DX: A41.89 Other specified sepsis (principal); U07.1 COVID-19; J44.1 Chronic obstructive pulmonary disease with (acute) exacerbation; N17.9 Acute kidney failure, unspecified; Z68.41 Body mass index [BMI] 40.0-44.9, adult; E66.9 Obesity, unspecified; K59.00 Constipation, unspecified; I10 Essential (primary) hypertension; E86.0 Dehydration; Z90.49 Acquired absence of other specified parts of digestive tract; Z79.52 Long term (current) use of systemic steroids; Z79.899 Other long term (current) drug therapy; Z90.710 Acquired absence of both cervix and uterus; Z87.891 Personal history of nicotine dependence
CPT/HCPCS: 0240U; 36415; 71045; 80048; 80061; 80076; 81001; 82728; 83605; 83735; 83880; 84100; 84484; 85025; 85027; 85610; 85730; 86140; 87040; 93005; 94760; 96365; 96375; 97116; 97161; 97530; 99285; J1650; J2405; J2920; J2930; J3475; J7030; J7512; J7614

== ENCOUNTER 2022-06-17 18:00 | Emergency (ER) | payer OTHER ==
--- OUTSIDE RECORDS SUMMARY | 2022-06-17 18:05 | XMS REPORT | Continuity of Care Document ---
:1950 Author Organization [facility] t Address [address] [place] [address] Dr. [place] [address] [place] [id number] Care Team Providers Name Role Phone Unavailable Unavailable Unavailable Problems This patient has no known problems. Allergies, Adverse Reactions, Alerts This patient has no known allergies or adverse reactions. Medications This patient has no known medications. Procedures This patient has no known procedures. Encounters Start End Encounter Admission Attending Care Care Encounter Source Date/Time Date/Time Type Type Clinicians Facility Department ID 2022-06-16 2022-06-16 Outpatient [facility] [id number] 16:08:21 16:08:21 [id number] [address] Joesph Results This patient has no known results.
[2022-06-17 19:07] LABS: Absolute Lymphocytes (CBC) 1.2 K/uL (0.7-4.9); Hematocrit 30.1 % (36.0-45.0); Lymphocytes % 9.1 % (15.3-44.8); MCV 83.9 fL (80-100); RBC Red Blood Cell Count 3.59 M/uL (3.86-4.86)
[2022-06-17 19:11] LABS: Protime INR 1.3
--- NOTE | 2022-06-17 19:15 | RAD REPORT ---
EXAM DESCRIPTION: RAD - Chest Single View - 06/17/2022 7:05 pm CLINICAL HISTORY: COUGH COMPARISON: Chest Single View dated 05/08/2022; ABDOMEN ACUTE SERIES dated 12/25/2008 FINDINGS: Lines: None. Lungs: No evidence of edema or pneumonia. Pleural: No significant pleural effusions or pneumothorax. Cardiac: The heart size is within normal limits. Mediastinum: Within normal limits. Bones: No acute fractures. Other: None IMPRESSION: No acute cardiopulmonary disease.
[2022-06-17] MEDS ORDERED: FAMOTIDINE 20 MG/2 ML VIAL IV ONE (19:25)
[2022-06-17] MEDS ORDERED: ONDANSETRON 4 MG/2 ML VIAL ONE (19:25)
[2022-06-17 19:29] LABS: Albumin 2.8 g/dL (3.4-5.0); Bilirubin Direct 0.2 mg/dL (0-0.2); Bilirubin Total 0.4 mg/dL (0.2-1.0); Potassium 3.2 mmol/L (3.5-5.1); Protein, Total 7.6 g/dL (6.4-8.2); Troponin High Sensitivity 15.5 pg/mL (<58.9)
[2022-06-17 19:32] LABS: Urine Blood Negative (Negative); Urine Glucose Negative (Negative); Urine Protein 1+ (Negative); Urine Specific Gravity 1.025 (1.005-1.030)
[2022-06-17 19:50] LABS: Urine Bacteria <20 /HPF (<20); Urine Crystals Unidentified Few /HPF (None Seen); Urine Mucus Slight /HPF (None Seen); Urine RBC <5 /HPF (None Seen); Urine WBC Clump Rare /HPF (None Seen)
[2022-06-17 19:57] LABS: Magnesium 1.5 mg/dL (1.6-2.4)
[2022-06-17 20:06] LABS: SARS-COV-2 RT PCR POSITIVE (NEGATIVE)
[2022-06-17] MEDS ORDERED: NA CHLORIDE 0.9% 500 ML ONE (20:10)
--- NOTE | 2022-06-17 20:54 | RAD REPORT ---
EXAM DESCRIPTION: CTAbdomen Pelvis W Contrast - 06/17/2022 8:43 pm CLINICAL HISTORY: NAUSEA / VOMITING COMPARISON: No comparisons TECHNIQUE: CT of the abdomen and pelvis was performed. All CT scans are performed using dose optimization technique as appropriate and may include automated exposure control or mA/KV adjustment according to patient size. FINDINGS: Lower chest: No acute abnormality. Liver: No acute abnormality or suspicious lesions. Biliary: Cholecystectomy. Mild extrahepatic biliary duct dilatation is likely related to postcholecys tectomy state. Stomach: No significant focal abnormality. Duodenum: No significant focal abnormality. Pancreas: Atrophy. No pancreatic mass. Spleen: No significant abnormality. Adrenal: No suspicious lesions. Kidney/ureter: No hydronephrosis. No renal calculi. Retroperitoneum: No retroperitoneal adenopathy. Vascular: No aneurysm. Atherosclerosis. Bowel: No significant focal abnormality. Peritoneum: No ascites or free air. Ventral abdominal wall laxity. Bladder: Grossly unremarkable. Reproductive: No adnexal masses. Hysterectomy Bones: No acute fracture. Multilevel degenerative changes are present in the spine. Schmorl's nodes p resent at L4 and L5. Other: n/a IMPRESSION: No acute intra-abdominal or pelvic finding. Incidental findings as noted above.
[2022-06-17] MEDS ORDERED: POTASSIUM 25 MEQ EFFERV TAB ONE (21:21)
[2022-06-17] MEDS ORDERED: MAGNESIUM SULFATE 1 gm IVPB 1 GM/100 ML BAG IV ONE (21:22)
[2022-06-17] MEDS ORDERED: CEFTRIAXONE 1000 MG/VIAL ONE (21:58)
--- NOTE | 2022-06-17 22:25 | ER ---
Nurse's Notes [facility] Name: Amna Lundberg Age: 71 yrs Sex: Female : 1950 Arrival Date: 06/17/2022 Time: 18:02 Bed 8 Private MD: Diagnosis: Nausea with vomiting, unspecified;Diarrhea, unspecified;Hypokalemia;SARS-associated coronavirus as the cause of diseases classified elsewhere Presentation: 06/17 18:19 Chief complaint: Pt's daughter states "she's been having diarrhea, throwing up, aa5 headache for 2 days and I took her to a clinic and they said she is COVID positive but she is getting weaker". Pt also reports SOB. Onset of symptoms was June 2022. 18:19 Acuity: DOMENICO 3 aa5 18:19 Coronavirus screen: Client reports previous positive COVID test result. Ebola Screen: aa5 Patient denies travel to an Ebola-affected area in the 21 days before illness onset. Initial Sepsis Screen: Does the patient meet any 2 criteria? HR > 90 bpm. Does the patient have a suspected source of infection? Yes:. Risk Assessment: Do you want to hurt yourself or someone else? Patient reports no desire to harm self or others. 18:19 Method Of Arrival: Wheelchair aa5 Triage Assessment: 21:47 General: Appears in no apparent distress. uncomfortable, obese, Behavior is vc1 cooperative. GI: Reports diarrhea, intolerance of food, nausea. Historical: - Allergies: 18:19 No Known Allergies; aa5 - PMHx: 18:19 Chronic obstructive lung disease; Chronic pain; depressive disorder; Hypertensive aa5 disorder; - PSHx: 18:19 Total abdominal hysterectomy; aa5 - Immunization history:: Adult Immunizations unknown. - Social history:: Smoking status: Patient denies any tobacco usage or history of. Screenin:39 Abuse screen: Denies threats or abuse. Nutritional screening: No deficits noted. vc1 Tuberculosis screening: No symptoms or risk factors identified. 21:48 [facility] ED Fall Risk Assessment (Adult) History of falling in the last 3 months, vc1 including since admission No falls in past 3 months (0 pts) Confusion or Disorientation No (0 pts) Intoxicated or Sedated No (0 pts) Impaired Gait Yes (1 pt) Mobility Assist Device Used Yes (1 pt) Altered Elimination Yes (1 pt) Score/Fall Risk Level 3 or more points = High Risk Oriented to surroundings, Maintained a safe environment, Educated pt \\T\\ family on fall prevention, incl call for assistance when getting out of bed. Assessment: 21:25 Reassessment: Patient appears in no apparent distress at this time. pt refused aa9 potassium po, notified provider. 21:46 Pain: Complains of pain in headache. GI: Abdomen is flat, Reports diarrhea, nausea, vc1 vomiting. 22:55 Reassessment: Patient appears in no apparent distress at this time. Patient is alert, aa9 oriented x 3, equal unlabored respirations, skin warm/dry/pink. Patient states feeling better. Vital Signs: 18:19 BP 136 / 88; Pulse 108; Resp 20 S; Temp 97.1(TE); Pulse Ox 99% on R/A; Weight 90.72 kg aa5 (R); Height 5 ft. 3 in. (160.02 cm) (R); 19:38 BP 153 / 83; Pulse 107; Resp 18; Pulse Ox 96% on R/A; vc1 20:30 BP 124 / 75; Pulse 98; Resp 18; Pulse Ox 94% ; vc1 18:19 Body Mass Index 35.43 (90.72 kg, 160.02 cm) aa5 ED Course: 18:02 Patient arrived in ED. mr 18:19 Arm band placed on. aa5 18:20 Triage completed. aa5 18:22 David Gutiérrez PA is PHCP. cp 18:22 Mauricio Salomon MD is Attending Physician. cp 18:57 Initial lab(s) drawn, by sc, sent to lab. Inserted saline lock: 22 gauge in left aa5 antecubital area, using aseptic technique. Blood collected. 19:07 XRAY Chest (1 view) In Process Unspecified. EDMS 19:19 Basic Metabolic Panel Sent. mm9 19:19 LFT's Sent. mm9 19:19 Magnesium Sent. mm9 19:19 NT PRO-BNP Sent. mm9 19:19 Troponin HS Sent. mm9 19:19 EKG done, by ED staff, reviewed by David BANKS. mm9 19:28 Markus Wagoner MD is Attending Physician. cp 19:33 Urine Microscopic Only Sent. as7 19:37 Calcote, Karen, RN is Primary Nurse. vc1 20:45 CT Abd/Pelvis - IV Contrast Only In Process Unspecified. EDMS 21:48 Patient has correct armband on for positive identification. Bed in low position. Call vc1 light in reach. Pulse ox on. NIBP on. 22:55 No provider procedures requiring assistance completed. IV discontinued, intact, aa9 bleeding controlled, No redness/swelling at site. Pressure dressing applied. Administered Medications: 19:36 Drug: Zofran (Ondansetron) 4 mg Route: IVP; Site: right antecubital; vc1 22:13 Follow up: Response: No adverse reaction aa9 19:36 Drug: Pepcid (famotidine) 20 mg Route: IVP; Site: right antecubital; vc1 22:13 Follow up: Response: No adverse reaction aa9 20:10 Drug: NS 0.9% 500 ml Route: IV; Rate: 500 ml/hr; Site: right antecubital; aa9 22:12 Follow up: Response: No adverse reaction; IV Status: Completed infusion; IV Intake: aa9 500ml 21:24 Drug: Magnesium Sulfate 1 grams Route: IVPB; Infused Over: 1 hrs; Site: right aa9 antecubital; 21:25 Not Given (Patient Refused): Potassium Effervescent Tablet 50 mEq PO once; dissolve in aa9 4 ounces of water or juice Medication: 21:48 VIS not applicable for this client. vc1 Intake: 22:12 IV: 500ml; Total: 500ml. aa9 Outcome: 22:24 Discharge ordered by . cp 22:55 Discharged to home via wheelchair. aa9 22:55 Condition: stable 22:55 Discharge instructions given to patient, Instructed on discharge instructions, follow up and referral plans. safe sex practices, Demonstrated understanding of instructions, follow-up care, medications, Prescriptions given X 3. 22:55 Patient left the ED. aa9 Signatures: Dispatcher [employer] EDND HernandezJoi HeberEva RN RN aa5 David Gutiérrez PA PA cp Calcote, Vanessa, RN RN vc1 Landy Arreaga RN RN aa9 Romy Bowen Autumn as7 Corrections: (The following items were deleted from the chart) 21:26 21:25 Reassessment: Patient appears in no apparent distress at this time. pt refused aa9 potassium po aa9
--- NOTE | 2022-06-17 22:25 | EDPHYS ---
Physician Documentation [facility] Name: Amna Lundberg Age: 71 yrs Sex: Female : 1950 Arrival Date: 06/17/2022 Time: 18:02 Bed 8 Private MD: ED Physician Markus Wagoner HPI: 06/17 18:45 This 71 yrs old Female presents to ER via Wheelchair with complaints of Covid+, cp Vomiting/Diarrhea, Headache. 18:45 The patient presents to the emergency department with nausea, that is moderate, cp vomiting, that is intermittent, described as bilious, diarrhea, that is intermittent. Onset: The symptoms/episode began/occurred 2 day(s) ago. Possible causes: Patient reports testing positive for COVID-19 yesterday. 18:45 Associated signs and symptoms: Pertinent positives: abdominal pain, headache, Pertinent cp negatives: fever, GI bleeding. Severity of symptoms: in the emergency department the symptoms are unchanged despite home interventions. Historical: - Allergies: 18:19 No Known Allergies; aa5 - PMHx: 18:19 Chronic obstructive lung disease; Chronic pain; depressive disorder; Hypertensive aa5 disorder; - PSHx: 18:19 Total abdominal hysterectomy; aa5 - Immunization history:: Adult Immunizations unknown. - Social history:: Smoking status: Patient denies any tobacco usage or history of. ROS: 18:50 Constitutional: Positive for poor PO intake, Negative for fever. cp 18:50 Eyes: Negative for injury, pain, redness, and discharge. cp 18:50 ENT: Negative for drainage from ear(s), ear pain, difficulty swallowing, difficulty handling secretions. 18:50 Cardiovascular: Negative for chest pain, palpitations. 18:50 Respiratory: Positive for shortness of breath, Negative for wheezing. 18:50 Abdomen/GI: Positive for abdominal pain, nausea, vomiting, and diarrhea, Negative for constipation, hematemesis, black/tarry stool, rectal bleeding. 18:50 Skin: Negative for rash. 18:50 Neuro: Positive for headache, weakness, Negative for altered mental status. 18:50 All other systems are negative. Exam: 18:55 Constitutional: The patient appears in no acute distress, alert, awake, cp non-diaphoretic, non-toxic, well developed, well nourished, overweight 18:55 Head/Face: Normocephalic, atraumatic. cp 18:55 Eyes: Periorbital structures: appear normal, Pupils: equal, round, and reactive to light and accomodation, Extraocular movements: intact throughout, Conjunctiva: normal, no exudate, no injection, Sclera: no appreciated abnormality, Lids and lashes: appear normal, bilaterally. 18:55 ENT: External ear(s): are unremarkable, Nose: is normal, Mouth: Lips: moist, Oral mucosa: pink and intact, moist, Posterior pharynx: is normal, airway is patent, no erythema, no exudate. 18:55 Neck: ROM/movement: is normal, is supple, without pain, no range of motions limitations, no meningismus. 18:55 Chest/axilla: Inspection: normal. 18:55 Cardiovascular: Rate: tachycardic, Rhythm: regular, Edema: is not appreciated, JVD: is not appreciated. 18:55 Respiratory: the patient does not display signs of respiratory distress, Respirations: normal, no use of accessory muscles, no retractions, labored breathing, is not present, Breath sounds: are clear throughout, no decreased breath sounds, no stridor, no wheezing. 18:55 Abdomen/GI: Inspection: abdomen appears normal, Bowel sounds: active, all quadrants, Palpation: soft, in all quadrants, mild abdominal tenderness, in all quadrants, rebound tenderness, is not appreciated, involuntary guarding, is not appreciated. 18:55 Back: pain, is absent, ROM is normal. 18:55 Neuro: Orientation: to person, place \T\ time. Mentation: is normal, Motor: moves all fours, strength is normal, Sensation: is normal. 19:18 ECG was reviewed by the Attending Physician. cp Vital Signs: 18:19 BP 136 / 88; Pulse 108; Resp 20 S; Temp 97.1(TE); Pulse Ox 99% on R/A; Weight 90.72 kg aa5 (R); Height 5 ft. 3 in. (160.02 cm) (R); 19:38 BP 153 / 83; Pulse 107; Resp 18; Pulse Ox 96% on R/A; vc1 20:30 BP 124 / 75; Pulse 98; Resp 18; Pulse Ox 94% ; vc1 18:19 Body Mass Index 35.43 (90.72 kg, 160.02 cm) aa5 MDM: 18:25 Patient medically screened. cp 20:00 Differential diagnosis: gastritis, diverticulitis, viral gastroenteritis, cp gastroenteritis, colitis, dehydration, electrolyte abnormality, pneumonia. 22:23 Data reviewed: vital signs, nurses notes, lab test result(s), EKG, radiologic studies, cp CT scan, plain films. 22:23 Consideration of Admission/Observation Escalation of care including cp admission/observation considered. I considered the following discharge prescriptions or medication management in the emergency department Medications were administered in the Emergency Department. See MAR. Test considered but Not performed: CT: chest, head. Care significantly affected by the following chronic conditions: Chronic Obstructive Pulmonary Disease, chronic pain. Counseling: I had a detailed discussion with the patient and/or guardian regarding: the historical points, exam findings, and any diagnostic results supporting the discharge/admit diagnosis, lab results, radiology results, to return to the emergency department if symptoms worsen or persist or if there are any questions or concerns that arise at home. Response to treatment: the patient's symptoms have markedly improved after treatment, VSS. Nausea and pain improved. Patient tolerating po fluids. Will discharge to home for continued monitoring. Special discussion: Based on the patient's Hx, exam, and Dx evaluation, there is no indication for emergent surgery or inpatient Tx. It is understood by the patient/guardian that if the Sx's persist or worsen they need to return immediately for re-evaluation. 06/17 18:40 Order name: Basic Metabolic Panel; Complete Time: 21:11 cp 06/17 19:57 Interpretation: Normal except: K 3.2; ANION GAP 15.2; GLUC 109; CRE 1.33; GFR 43. cp 06/17 18:40 Order name: CBC with Diff; Complete Time: 19:56 cp 06/17 19:57 Interpretation: Normal except: WBC 13.50; RBC 3.59; HGB 9.5; HCT 30.1; MCH 26.5; MCHC cp 31.6; PLT 415; RDW 16.3; JULIO C% 84.9; LYM% 9.1; NEUT A 11.5. 06/17 18:40 Order name: LFT's; Complete Time: 21:11 cp 06/17 21:12 Interpretation: Normal except: AST 11; ALK 137; ALB 2.8; GLOB 4.8; A/G 0.6. cp 02/10 18:40 Order name: Magnesium; Complete Time: 21:11 cp 02/10 21:12 Interpretation: Abnormal: MG 1.5. cp / 18:40 Order name: NT PRO-BNP; Complete Time: 21:11 cp 02/10 18:40 Order name: PT-INR; Complete Time: 19:56 cp / 18:40 Order name: Troponin HS; Complete Time: 21:11 cp / 18:40 Order name: XRAY Chest (1 view); Complete Time: 19:56 cp 06/17 18:40 Order name: COVID-19/FLU A+B; Complete Time: 21:11 cp / 18:40 Order name: Lipase; Complete Time: 21:11 cp / 21:12 Interpretation: Reviewed. cp 06/17 18:40 Order name: Urine Microscopic Only; Complete Time: 19:56 cp 06/17 21:13 Interpretation: Normal except: UWBC 20-50; GLENN Cx 1+. cp 06/17 19:32 Order name: Urine Dipstick-Ancillary; Complete Time: 19:56 EDRI 06/17 22:07 Interpretation: Normal except: UKET 2+; UPROT 1+; UESTR 1+. cp 06/17 19:53 Order name: Urine Culture EDRI 06/17 19:58 Order name: CT Abd/Pelvis - IV Contrast Only; Complete Time: 21:11 cp /10 18:40 Order name: EKG; Complete Time: 18:41 cp 06/17 18:40 Order name: Cardiac monitoring; Complete Time: 19:19 cp 06/17 18:40 Order name: EKG - Nurse/Tech; Complete Time: 19:19 cp 06/17 18:40 Order name: IV Saline Lock; Complete Time: 19:07 cp 10 18:40 Order name: Labs collected and sent; Complete Time: 19:07 cp 06/17 18:40 Order name: O2 Per Protocol; Complete Time: 19:19 cp /10 18:40 Order name: O2 Sat Monitoring; Complete Time: 19:19 cp 06/17 18:40 Order name: Urine Dipstick-Ancillary (obtain specimen); Complete Time: 19:33 cp 10 21:29 Order name: PO challenge; Complete Time: 22:12 cp EC:18 Rate is 104 beats/min. Rhythm is regular. CA interval is normal. QRS interval is cp normal. QT interval is normal. T waves are Inverted in leads aVL, aVR. Interpreted by me. Reviewed by me. Administered Medications: 19:36 Drug: Zofran (Ondansetron) 4 mg Route: IVP; Site: right antecubital; vc1 22:13 Follow up: Response: No adverse reaction aa9 19:36 Drug: Pepcid (famotidine) 20 mg Route: IVP; Site: right antecubital; vc1 22:13 Follow up: Response: No adverse reaction aa9 20:10 Drug: NS 0.9% 500 ml Route: IV; Rate: 500 ml/hr; Site: right antecubital; aa9 22:12 Follow up: Response: No adverse reaction; IV Status: Completed infusion; IV Intake: aa9 500ml 21:24 Drug: Magnesium Sulfate 1 grams Route: IVPB; Infused Over: 1 hrs; Site: right aa9 antecubital; 21:25 Not Given (Patient Refused): Potassium Effervescent Tablet 50 mEq PO once; dissolve in aa9 4 ounces of water or juice Disposition: 06/18 02:41 Co-signature as Attending Physician, Markus Wagoner MD. rn Disposition Summary: 06/17/22 22:24 Discharge Ordered Location: Home cp Problem: new cp Symptoms: have improved cp Condition: Stable cp Diagnosis - Nausea with vomiting, unspecified cp - Diarrhea, unspecified cp - Hypokalemia cp - SARS-associated coronavirus as the cause of diseases classified elsewhere cp Followup: cp - With: Private Physician - When: 2 - 3 days - Reason: Recheck today's complaints Discharge Instructions: - Discharge Summary Sheet cp - Food Choices to Help Relieve Diarrhea, Adult cp - Diarrhea, Adult cp - Nausea and Vomiting, Adult cp - Aspirin and Your Heart cp - COVID-19 cp - Things to Know about the COVID-19 Pandemic - [facility] cp - 10 Things You Can Do to Manage Your COVID-19 Symptoms at Home - [facility] cp - COVID-19: Quarantine vs. Isolation - [facility] cp - Prevent the Spread of COVID-19 if You Are Sick - [facility] cp Forms: - Medication Reconciliation Form cp - Thank You Letter cp - Antibiotic Education cp - Prescription Opioid Use cp Prescriptions: - Paxlovid (EUA) 150 mg x 2- 100 mg Oral tablet - take 3 tablet by ORAL route 2 times per day for 5 days per package directions; cp 30 tablet; Refills: 0, Product Selection Permitted - Protonix 40 mg Oral tablet,delayed release (DR/EC) - take 1 tablet by ORAL route once daily; 10 tablet; Refills: 0, Product cp Selection Permitted - Zofran 4 mg Oral Tablet - take 1 tablet by ORAL route every 12 hours As needed; 20 tablet; Refills: 0, cp Product Selection Permitted Signatures: Dispatcher [employer] EDMS Markus Wagoner MD MD rn Eva Buck RN RN aa5 David Gutiérrez PA PA cp Calcote, Vanessa RN RN vc1 Landy Arreaga, RN RN aa9
[2022-06-17 23:08] VITALS: TEMP 97.1
[2022-06-17 23:19] VITALS: BP 124/75; O2SAT 94
== END 2022-06-17 22:55 | disposition home or self-care (01) ==
LOC: ER 18:00
DX: U07.1 COVID-19 (principal); E87.6 Hypokalemia; R19.7 Diarrhea, unspecified; J44.9 Chronic obstructive pulmonary disease, unspecified; I10 Essential (primary) hypertension
CPT/HCPCS: 96361; 87088; 85025; 87086; 80048; 36415; 83735; 85610; 80076; 87077; 87186; 84484; 83690; 83880; 0240U; 74177; 71045; 96375; 96374; 99284; Q9967; J3475; J7040; J2405; 81003; 81015; 93005

== ENCOUNTER 2022-09-27 12:24 | Inpatient (IN) | payer OTHER ==
--- OUTSIDE RECORDS SUMMARY | 2022-09-27 12:27 | XMS REPORT | Continuity of Care Document ---
:1950 Author Organization [facility] t Address [address] [place] [address] [place] [id number] Care Team Providers Name Role Phone PCP, PATIENT DOES NOT HAVE A Primary Care Physician Unavailmedardo Roland RN, Jackie Zelaya Attending Clinician Derik Mohamud MD Attending Clinician Chadwick Delgado DO Attending Clinician Casey Henderson MD Attending Clinician CHADWICK DELGADO Attending Clinician Unavailable Casey Henderson MD Admitting Clinician CASEY HENDERSON Admitting Clinician Unavailable Payers Payer Name Policy Type Policy Number Effective Date Expiration Date S ource Problems Condition Condition Condition Status Onset Resolution Last Treating Co mments Source Name Details Category Date Date Treatment Clinician Date E44.0 E44.0 Disease Active Univers Moderate Moderate 2-24 ity of protein protein 00:00: [place] calorie calorie 00 Medical malnutriti malnutriti Br anch on on Nausea and Nausea and Disease Active U nivers vomiting, vomiting, 2-23 ity of unspecifie [place] d vomiting 00 Me dical type type Branch Severe Severe Disease Active Overview: 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 Allergies, Adverse Reactions, Alerts Allergy Allergy Status Severity Reaction(s) Onset Inactive Treating Comm ents Source Name Type Date Date Clinician NO KNOWN Drug Active Univers ALLERGIE Class ity of [facility] [place] [facility] Social History Social Habit Start Date Stop Date Quantity Comments Source History of tobacco Cigarette Smoker University of use [place] [facility] History SDOH Social Unive rsity of Connections [facility] Med ical Together Branch History SDOH Social Unive rsity of Connections [facility] Medical Branch History SDOH Social Unive rsity of Connections [place] [facility] Membership [facility] History SDOH Social Unive rsity of Connections [place] [facility] Meetings Branch History SDOH Social Unive rsity of Connections [facility] Medical [place] Tobacco use and 2022-06-30 2022-06-30 Smokeless Universit y of exposure 00:00:00 00:00:00 tobacco non-user [place] Nd dical Branch History SDOH 2022-06-30 2022-06-30 1 University o f Alcohol Frequency 00:00:00 00:00:00 [place] M edical Branch History SDOH 2022-06-30 2022-06-30 0 University o f Alcohol Std Drinks 00:00:00 00:00:00 [place] [facility] History SDOH 2022-06-30 2022-06-30 1 University o f Alcohol Binge 00:00:00 00:00:00 [place] Medic al Branch History SDOH Social 2022-06-30 2022-06-30 5 Unive rsity of Connections Phone 00:00:00 00:00:00 [place] M edical Branch History SDOH 2022-06-30 2022-06-30 0 University o f Physical Activity 00:00:00 00:00:00 [place] M edical DPW Branch History SDOH 2022-06-30 2022-06-30 0 University o f Physical Activity 00:00:00 00:00:00 [place] M edical MPS Branch History SDOH 2022-06-30 2022-06-30 5 University o f Financial 00:00:00 00:00:00 [place] [facility] History SDOH Food 2022-06-30 2022-06-30 1 Univers ity of Worry 00:00:00 00:00:00 [place] [facility] History SDOH Food 2022-06-30 2022-06-30 1 Univers ity of Scarcity 00:00:00 00:00:00 [place] [facility] History SDOH 2022-06-30 2022-06-30 2 University o f Transport Med 00:00:00 00:00:00 [place] [facility] al [facility] History SDOH 2022-06-30 2022-06-30 2 University o f Transport Non-Med 00:00:00 00:00:00 [facility] edical Branch Tobacco Comment 2022-06-30 2022-06-30 Quit 45 years Univer sity of 00:00:00 00:00:00 ago [facility] Exposure to 2022-06-19 2022-06-29 Not sure [facility] SARS-CoV-2 (event) 00:00:00 18:20:00 [facility] Sex [birth year] Universit y of 00:00:00 00:00:00 [facility] Smoking Status Start Date Stop Date Source Ex-smoker 2022-06-30 00:00:00 2022-06-30 00:00:00 [facility] Medications Ordered Filled Start Stop Current Ordering Indication Dosage Frequency Signature Comments Components Source Medication Medication Date Date Medication? Clinician (SIG) Name Name cholecalcif 2022- Yes [id number] 1000U Take 1 Univers soraya, 2-27 03-30 tablet by ity of vitamin D3, 00:00: 04:59 mouth in [place] 25 mcg 00 :00 the Medical (1,000 morning Branch unit) for 30 tablet days. zinc 2022- Yes [id number] 50mg Take 1 Univer s sulfate 50 2-27 03-30 capsule by it y of mg zinc 00:00: 04:59 mouth in [place] (220 mg) 00 :00 the Medical capsule morning Branch for 30 days. cholecalcif 2022- Yes [id number] 1000U Take 1 Univers soraya, 2-27 03-30 tablet by ity of vitamin D3, 00:00: 04:59 mouth [place] 25 mcg 00 :00 the Medical (1,000 morning Branch unit) for 30 tablet days. zinc 2022- Yes [id number] 50mg Take 1 Univer s sulfate 50 2-27 03-30 capsule by it y of mg zinc 00:00: 04:59 mouth in [place] (220 mg) 00 :00 the Medical capsule morning Branch for 30 days. ondansetron 2022-0 Yes 4mg Take 4 mg U nivers (ZOFRAN) 4 2-26 by mouth ity o f mg tablet 16:44: in the [place] [address] morning Medical and 4 mg Branch in the evening. pantoprazol 2022-0 Yes 40mg Take 40 mg Univers e sodium 2-26 by mouth ity of (PANTOPRAZO 16:44: daily. [place] LE ORAL) Medical Branch HYDROcodone 2022-0 Yes 1{tbl} Take 1 Un erma -acetaminop 2-26 tablet by ity of hen 7.5-325 16:44: mouth [place] mg per 51 every 8 Medical tablet (eight) Branch hours as needed for Pain. esomeprazol 2022-0 Yes 40mg Take 40 mg Univers e magnesium 2-26 by mouth ity of (NEXIUM 16:44: daily. [place] ORAL) Medical Branch atorvastati 0 Yes 40mg Take 40 mg Univers n (LIPITOR) 2-26 by mouth ity of 40 mg 16:44: at [place] tablet bedtime. Medical Branch amLODIPine- 2022-0 Yes 1{capsu Take 1 U nivers benazepriL 2-26 le} capsule by ity of 10-40 mg 16:44: mouth in [place] per capsule 51 the Medical morning. Branch SERTraline 0 Yes 100mg Take 100 Un erma 100 mg 2-26 mg by ity of tablet 16:44: mouth in [place] [address] the Medical morning. Branch Levothyroxi 0 Yes Take by Uni vers ne 100 mcg 2-26 mouth ity of capsule 16:44: daily. [place] [address] Medical Branch spironolact 2022-0 Yes 25mg Take 25 mg Univers one 2-26 by mouth ity of (ALDACTONE) 16:44: in the [facility] 25 mg morning. Medical tablet Branch ondansetron 2022-0 Yes 4mg Take 4 mg U nivers (ZOFRAN) 4 2-26 by mouth ity o f mg tablet 16:44: in the [place] [address] morning Medical and 4 mg Branch in the evening. pantoprazol 2022-0 Yes 40mg Take 40 mg Univers e sodium 2-26 by mouth ity of (PANTOPRAZO 16:44: daily. [place] LE ORAL) 51 Medical Branch HYDROcodone Yes 1{tbl} Take 1 Un erma -acetaminop 2-26 tablet by ity of hen 7.5-325 16:44: mouth [place] mg per 51 every 8 Medical tablet (eight) Branch hours as needed for Pain. esomeprazol Yes 40mg Take 40 mg Univers e magnesium 2-26 by mouth ity of (NEXIUM 16:44: daily. [place] ORAL) 51 Medical Branch atorvastati 0 Yes 40mg Take 40 mg Univers n (LIPITOR) 2-26 by mouth ity of 40 mg 16:44: at [place] tablet 51 bedtime. Medical Branch amLODIPine- Yes 1{capsu Take 1 U nivers benazepriL 2-26 le} capsule by ity of 10-40 mg 16:44: mouth in [place] per capsule 51 the Medical morning. Branch SERTraline Yes 100mg Take 100 Un erma 100 mg 2-26 mg by ity of tablet 16:44: mouth in [place] 51 the Medical morning. Branch Levothyroxi Yes Take by Uni vers ne 100 mcg 2-26 mouth ity of capsule 16:44: daily. [place] [address] Medical Branch spironolact 0 Yes 25mg Take 25 mg Univers one 2-26 by mouth ity of (ALDACTONE) 16:44: in [place] 25 mg 51 morning. Medical tablet Branch nirmatrelvi 2022- No 2{tbl} Take 2 U nivers r-ritonavir 2-03 07- tablets by i ty of (PAXLOVID, 09:58: 00:00 mouth 2 Ulices as EUA,) 51 :00 (two) Medical 150-100 mg times Branch tablet daily. ascorbic 0 2022- Yes [id number] 500mg Take 1 U nivers acid, 2-31 07- tablet by ity of vitamin C, 00:00: 04:59 [place] 500 mg 00 :00 the Medical tablet morning Branch and 1 tablet in the evening. Do all this for 30 days. ascorbic 0 2022- Yes [id number] 500mg Take 1 U nivers acid, 2-31 07-29 tablet by ity of vitamin C, 00:00: 04:59 [place] 500 mg 00 :00 the Medical tablet morning Branch and 1 tablet in the evening. Do all this for 30 days. levoFLOXaci 2022-0 2022- Yes [id number] 750mg Take 1 Univers n 750 mg 07-03 tablet by ity o f tablet 00:00: 05:59 mouth [place] 00 :00 every 48 Medical ([facility]) hours for 3 days. levoFLOXaci 2022-0 2022- Yes [id number] 750mg Take 1 Univers n 750 mg 07-03 tablet by ity o f tablet 00:00: 05:59 mouth [place] 00 :00 every 48 Medical ([facility]) hours for 3 days. alum-mag Yes 30mL 30 mL, Univers hydroxide-s 2 Oral, ity of imeth 01:23: Q6HPRN, [place] (MAALOX 14 Starting Medical PLUS / on Mon Branch MAG-AL 07/01/22 at PLUS) 1923, 200-200-20 Until mg/5 mL Discontinu suspension ed, 30 mL Routine, Indigestio n, Heartburn pantoprazol Yes 40mg 40 mg, Univ ers e 2- Oral, ity of (PROTONIX) 23:45: DAILY, [place] EC tablet 00 First dose Medi karen 40 mg on [place] Branch 06/30/22 at 1745, Until Discontinu ed, Routine heparin Yes 5000U 5,000 Univers (porcine) 2-23 Units, ity of injection 20:00: Subcutaneo [place] 5,000 Units 00 us, Q8H, Medi karen First dose Branch on [place] 06/30/22 at 1400, Until Discontinu ed, Routine zinc Yes 50mg 50 mg, Univers sulfate 23 Oral, ity of (ORAZINC) 15:00: DAILY, [place] capsule 50 00 First dose Med ical mg (after Branch last modificati on) on [place] 06/30/22 at 0900, Until Discontinu ed, Routine cholecalcif Yes 1000U 1,000 [facility] [place] [facility] ers soraya 2-23 Units, ity of (vitamin 15:00: Oral, [place] D3) tablet 00 DAILY, Medical 1,000 Units First dose Br anch on [place] 06/30/22 at 0900, Until Discontinu ed, Routine dexamethaso 2022- No 6mg 6 mg, Slow Univers ne sod phos 06-3024 IV Push, ity of PF 15:00: 14:59 DAILY, [place] injection 6 00 :35 First dose Me dical mg on [place] Branch 06/30/22 at 0900, Until Discontinu ed, 1 mL levoFLOXaci 2022- Yes 750mg 750 mg, IV Univers n in D5W 06-30 Piggyback, ity of (LEVAQUIN) 14:45: 14:44 at 100 [place] 750 mg/150 00 :00 mL/hr Medical mL Administer Branch Piggyback over 90 750 mg Minutes, Q48H ABX, 3 doses, First dose on [place] 06/30/22 at 0845, Last dose on 07/04/22 at 0845, ISELA
Re ason for Anti-Infec tive: Empiric Therapy for Suspected Infection< br>Empiric Therapy Site: Abdominal< br>Duratio n of therapy: 5 days codeine-gua Yes 5mL 5 mL, Unive rs ifenesin 06-30 Oral, ity of (ROBITUSSIN 14:00: Q4HPRN, Ulices as AC) 10-100 58 Starting Medic al mg/5 mL on [place] Branch oral 06/30/22 at solution 5 0800, mL Until Discontinu ed, Routine, Cough ascorbic Yes 500mg 500 mg, Unive rs acid 06-30 Oral, BID, ity of (vitamin C) 14:00: First dose [place] (VITAMIN C) 00 on [place] Medica l tablet 500 06/30/22 at Bra nch mg 0800, Until Discontinu ed, Routine albuterol-i Yes 1{puff} 1 Puff, Univers pratropium 06-30 Inhalation ity of (COMBIVENT 14:00: , QID, [place] RESPIMAT) 00 First dose Medi karen 20-100 on [facility] Branch mcg/actuati 06/30/22 at on inhaler 0800, 1 Puff Until Discontinu ed, Routine
Is this order for a patient with suspected or confirmed COVID-19 infection? Yes albuterol Yes 2{puff} 2 Puff, Un erma (VENTOLIN) 06-30 Inhalation ity of inhaler 2 13:17: , Q4HPRN, Ulices as Puff 10 Starting Medical on [place] Branch 06/30/22 at 0717, Until Discontinu ed, Routine, Wheezing, Shortness of Breath, Bronchospa sm, Chest tightness NaCl 0.9% 2022- No IV Univers (NS) 1000 06-30 Infusion, ity of mL + KCL 40 06:45: 15:58 at 150 Ulices as mEq 00 :01 mL/hr, Medical CONTINUOUS Branch , Starting on [place] 06/30/22 at 0045, Until Mon07/01/22 at 0958, ISELA acetaminoph 2022- No 1000mg 1,000 mg, Univers en ADULT 06-30 IV ity of (OFIRMEV) 06:45: 06:41 Infusion, [place] injection 00 :00 at 400 Medical 1,000 mg mL/hr Branch Administer over 15 Minutes, ONCE, 1 dose, On [place] 06/30/22 at 0045, Routine
Indicatio n: Perioperat adiel Patient cefTRIAXone 2022- No 1000mg 1,000 mg, Univers (ROCEPHIN) 06-30 IV ity of 1,000 mg in 06:30: 06:55 Piggyback, [place] NaCl 0.9% 00 :00 ONCE, 1 Medical (NS) 100 mL dose, On Bran ch MINI-BAG [place] 06/30/22 at 0030, Administer over 30 Minutes, 100 mL
Reas on for Anti-Infec tive: Documented Infection< br>Documen camron Infection Site: Urine<br&g t;Duration of Therapy: Other (see Comments) ondansetron Yes 4mg 4 mg, Slow Univers (ZOFRAN 06-30 IV Push, ity of (PF)) 06:22: Q6HPRN, [place] injection 4 11 Starting Medi karen mg on [place] Branch 06/30/22 at 0022, Until Discontinu ed, Routine, Nausea and Vomiting (N/V) traMADoL 2022- No 50mg 50 mg, Univer s (ULTRAM) 06-30 Oral, ity of tablet 50 06:22: 06:21 Q8HPRN, [place] mg 06 :06 Starting Medical on [place] Branch 06/30/22 at 0022, Until 07/02/22 at 0021, Routine, Pain (scale 4-6) acetaminoph Yes 650mg 650 mg, Un erma en 06-30 Oral, ity of (TYLENOL) 06:22: Q6HPRN, [place] tablet 650 03 Starting Medic al mg on [place] Branch 06/30/22 at 0022, Until Discontinu ed, Routine, Pain (scale 1-3) FENTanyl PF 2022- No 25ug 25 mcg, Un erma (SUBLIMAZE 06-30 Slow IV ity o f (PF)) 06:00: 06:13 Push, [place] injection 00 :00 ONCE, 1 Medical 25 mcg dose, On Branch [place] 06/30/22 at 0000, STAT famotidine 2022- No 20mg 20 mg, Univ ers (PEPCID 06-30 Slow IV ity of (PF)) 01:45: 03:50 Push, ONCE [place] injection 00 :00 NOW, 1 Medical 20 mg dose, On Branch Mon06/29/22 at 1945, ISELA NaCl 0.9% 2022- No 1000mL at 999 Uni vers (NS) bolus 06-30 mL/hr, ity of infusion 01:30: 05:46 1,000 mL, Ulices as 1,000 mL 00 :00 IV Medical Piggyback, Branch ONCE, 1 dose, On Mon06/29/22 at 1930, STAT ondansetron 2022- No 8mg 8 mg, Slow Univers (ZOFRAN 06-30 IV Push, ity of (PF)) 00:45: 03:49 ONCE, 1 [place] injection 8 00 :00 dose, On Medi karen mg Wed Branch 06/29/22 at 1845, ISELA RAMELTEON 8 2006- Yes 1 Tab Oral Univers MG ORAL TAB 3-28 QHS ity of 00:00: [place] 00 [facility] Branch MIRTAZAPINE Yes Take 1 and Univers 30 MG ORAL 3-28 1/2 tab ity of TAB 00:00: QHS PO [address] PAROXETINE Yes 1 Tab Oral U nivers HCL 20 MG 3-28 DAILY ity of ORAL TAB 00:00: [address] RAMELTEON 8 Yes 1 Tab Oral Univers MG ORAL TAB 3-28 QHS ity of 00:00: [place] MIRTAZAPINE Yes Take 1 and Univers 30 MG ORAL 3-28 1/2 tab ity of TAB 00:00: QHS PO [address] PAROXETINE Yes 1 Tab Oral U nivers HCL 20 MG 3-28 DAILY ity of ORAL TAB 00:00: [address] Immunizations Ordered Filled Immunization Date Status Comments [facility] e Immunization Name Name SARS-COV-2 COVID-19 2020-09-28 Completed Unive rsity of MICHELLE/J&J VACCINE 00:00:00 [facility] SARS-COV-2 COVID-19 2020-09-28 Completed Unive rsity of MICHELLE/J&J VACCINE 00:00:00 [facility] Vital Signs Vital Name Observation Time Observation Value Comments Source Oxygen saturation in 2022-07-03 21:31:00 94 /min [facility] Arterial blood by [facility] Pulse oximetry Branch Systolic blood 2022-07-03 21:31:00 136 mm[Hg] Univer sity of pressure [facility] Diastolic blood 2022-07-03 21:31:00 71 mm[Hg] Unive rsity of pressure [facility] Heart rate 2022-07-03 21:31:00 97 /min General acute hospital Respiratory rate 2022-07-03 21:31:00 18 /min [facility] Body temperature 2022-07-03 17:19:00 36.22 [place] [facility] Body weight 2022-07-03 10:06:00 99.973 kg General acute hospital BMI 2022-07-03 10:06:00 39.04 kg/m2 General acute hospital Body height 2022-06-30 07:26:00 160 cm General acute hospital Procedures Procedure Date / Time Performing Clinician Source Performed BASIC METABOLIC PANEL 2022-07-03 12:48:00 Delgado Batista [facility] (NA, K, CL, CO2, GLUCOSE, Medica l Branch BUN, CREATININE, CA) CBC WITH DIFF 2022-07-03 12:48:00 Delgado Batista [facility] [place] [facility] BASIC METABOLIC PANEL 2022-07-02 12:01:00 [facility] ([facility], K, CL, CO2, GLUCOSE, Medica l Branch BUN, CREATININE, CA) CBC WITH DIFF 2022-07-02 12:01:00 Delgado Batista [facility] [place] [facility] XR CHEST 1 VW 2022-07-01 17:20:52 [facility] 2022-07-01 16:33:00 Delgado Batista [facility] BASIC METABOLIC PANEL 2022-07-01 08:35:00 [facility] (NA, K, CL, CO2, GLUCOSE, Medica l Branch BUN, CREATININE, CA) CBC WITH DIFF 2022-07-01 08:35:00 [facility] URINE CULTURE 2022-06-30 20:11:00 Delgado Batista [facility] [place] [facility] BASIC METABOLIC PANEL 2022-06-30 15:14:00 [facility] (NA, K, CL, CO2, GLUCOSE, Medica l Branch BUN, CREATININE, CA) CBC WITH DIFF 2022-06-30 15:14:00 [facility] COVID-19 (ID NOW RAPID 2022-06-30 10:11:00 [facility] TESTING) Medical Branch LAB ONLY COVID 2022-06-30 10:11:00 [facility] INTERPRETATION [facility] CT ABDOMEN PELVIS WO 2022-06-30 05:17:12 Derik Mohamud [facility] CONTRAST [facility] URINE DRUG (IMMUNOASSAY) 2022-06-30 04:22:00 Derik Mohamud [facility] DRUG Medical [facility] SCREEN URINALYSIS 2022-06-30 04:22:00 Derik Mohamud [facility] [place] [facility] MAGNESIUM 2022-06-30 03:49:00 Derik Mohamud [facility] [place] [facility] COMP. METABOLIC PANEL 2022-06-30 03:49:[address] [facility] ([id number]) Medical Branch LIPASE 2022-06-30 03:19:00 Derik Mohamud [facility] [place] [facility] CBC WITH DIFF 2022-06-30 03:19:00 Derik Mohamud [facility] [place] [facility] XR ABDOMEN 2 VW 2022-06-30 01:04:24 Derik Mohamud [facility] [place] [facility] NOTICE OF PRIVACY 2022-06-30 00:00:04 Doctor Unasswyatt, [facility] PRACTICES [facility] CONSENT/REFUSAL FOR 2022-06-29 23:59:37 Doctor Unachary, [facility] DIAGNOSIS AND TREATMENT [facility] Encounters Start End Encounter Admission Attending Care Care Encounter Source Date/Time Date/Time Type Type Clinicians Facility Department ID 2022-09-27 2022-09-27 Outpatient [facility] [id number] [place] 10:38:05 10:38:05 [id number] [place] 2022-09-16 2022-09-16 Outpatient [facility] [place] 16:10:40 16:10:40 [id number] [place] 2022-07-21 2022-07-21 Outpatient [facility] [id number] [place] 08:35:57 08:35:[id number] [facility] 2022-07-05 2022-07-05 Transition DOMENICA Roland [id number] Univers 00:00:00 00:00:00 of Care Jackie VICENTE [id number] i ty of JOSE R [id number] [id number] [id number] Branch 2022-06-29 2022-07-03 [facility] Derik Mohamud [facility] [id number] [facility] 18:36:00 16:40:00 Encounter Chadwick Delgado [id number] ity Casey Henderson [id number] [facility] [id number] [facility] 081 Branch 2022-06-29 2022-07-03 Inpatient Adrianna DELGADO [facility] [id number] Univers 18:36:00 16:40:00 CHADWICK wright [facility] 2022-06-16 2022-06-16 Outpatient SFA [facility] [id number] [place] 16:08:21 16:08:21 [id number] F [place] Results Test Description Test Time Test Comments Results Result Comments Source CULTURE, URINE 2022-07-23 SPECIMEN NUMBER: 16:00:26 [id number] CULTURE, URINE SPECIMEN NUMBER: [id number] SPECIMEN COMMENT: URINE SOURCE: URINE REPORT STATUS: FINAL FINAL REPORT: 07/23/2022 50-100,000 CFU/ML UROGENITAL CONNOR PRESENT NO COMMON PATHOGENS [facility] has important pathology staff changes effective 07/06/2022. New pathology staff will provide uninterrupted, excellent patient care and clinical consultation. See URL: [email or web address]. UNLESS OTHERWISE INDICATED, ALL TESTING PERFORMED AT [facility] [address] [place] [address] WOOD CALKER: JONN MILTON M.D. CLIA NUMBER [id number] [facility] [place]. [id number] BASIC METABOLIC PANEL (NA, K, CL, CO2, GLUCOSE, BUN, 2022-06 12:38:20 CREATININE, CA) Test Item Value Reference Range Interpretation Comme nts NA (test code = 4498387643) 136 mmol/L 135-145 K (test code = 5171343628) 4.1 mmol/L 3.5-5.0 CL (test code = 7493431724) 108 mmol/L 98-108 CO2 TOTAL (test code = 6553629070) 21 mmol/L 23-31 L AGAP (test code = 3154091419) 7 2-16 BUN (test code = 9128333192) 13 mg/dL 7-23 GLUCOSE (test code = 7736933122) 87 mg/dL 70-110 CREATININE (test code = 1.50 mg/dL 0.50-1.04 H 6412047184) CALCIUM (test code = 0869292217) 7.5 mg/dL 8.6-10.6 L eGFR (test code = 9923025324) 34.2 mL/min/1.73m2 JOE (test code = JOE) Association of Glomerular Filtration Rate (GFR) and Staging of Kidney Disease* + +-------- + ------+| GFR (mL/min/1.73 m2) ?| With Kidney Damage ?| ?Without Kidney Damage+ +-- + +| ?>90 ?| ?Stage one ?| ? Normal ?+ +------- + -------+| ?60-89 ?| ?Stage two ?| ? Decreased GFR ? + +-------- + ------+| ?30-59 ?| ?Stage three ?| ? Stage three ? + +-------- + ------+| ?15-29 ?| ?Stage four ? | ? Stage four ?+ +------- + -------+| ?<15 (or dialysis) ? ?| ?Stage five ? | ? Stage five ?+ +------- + -------+ *Each stage assumes the associated GFR level has been in effect for at least three months. ?Stages 1 to 5, with or without kidney disease, indicate chronic kidney disease. Notes: Determination of stages one and two (with eGFR >59mL/min/1.73 m2) requires estimation of kidney damage for at least three months as defined by structural or functional abnormalities of the kidney, manifested by either:Pathological abnormalities or Markers of kidney damage (including abnormalities in the composition of the blood or urine or abnormalities in imaging tests). Lab Interpretation (test code = Abnormal 90635-2) [facility] WITH [id number] 12:30:18 Test Item Value Reference Range Interpretation Comments WBC (test code = 7.01 See_Comment [Automated 4318-2) message] The sy stem which generated this result transmitted reference range : 4.30 - 11.10 10*3/?L. The reference range was not used to interpret this result as normal/abnormal . RBC (test code = 3.28 See_Comment L [Automated 400-2) message] The sy stem which generated this result transmitted reference range : 3.93 - 5.25 10*6/?L. The reference range was not used to interpret this result as normal/abnormal . HGB (test code = 8.7 g/dL 11.6-15.0 L 718-7) HCT (test code = 28.7 % 35.7-45.2 L 4544-3) MCV (test code = 87.5 fL 80.6-95.5 787-2) MCH (test code = 26.5 pg 25.9-32.8 785-6) MCHC (test code = 30.3 g/dL 31.6-35.1 L 786-4) RDW-SD (test code = 52.1 fL 39.0-49.9 H 59058-7) RDW-CV (test code = 16.1 % 12.0-15.5 H 788-0) PLT (test code = 259 See_Comment [Automated 777-3) message] The sy stem which generated this result transmitted reference range : 166 - 358 10*3/ ?L. The reference r arben was not used to interpret this result as normal/abnormal . MPV (test code = 11.6 fL 9.5-12.9 03101-1) NRBC/100 WBC (test 0.0 See_Comment [Automat ed code = 3733916417) message] The system which generated this result transmitted reference range : 0.0 - 10.0 /100 WBCs. The refer ence range was not u sed to interpret th is result as normal/abnormal . NRBC x10^3 (test code See_Comment [Auto mated = 9937648099) message] The s ystem which generated this result transmitted reference range : 10*3/?L. The reference range was not used to interpret this result as normal/abnormal . GRAN MAT (NEUT) % 65.2 % (test code = 770-8) IMM GRAN % (test code 1.40 % = 8350024453) LYMPH % (test code = 22.7 % 736-9) MONO % (test code = 8.0 % 5905-5) EOS % (test code = 2.4 % 713-8) BASO % (test code = 0.3 % 706-2) GRAN MAT x10^3(ANC) 4.57 10*3/uL 1.88-7.09 (test code = 5218970905) IMM GRAN x10^3 (test 0.10 10*3/uL 0.00-0.06 H code = 1721620994) LYMPH x10^3 (test code 1.59 10*3/uL 1.32-3.29 = 731-0) MONO x10^3 (test code 0.56 10*3/uL 0.33-0.92 = 742-7) EOS x10^3 (test code = 0.17 10*3/uL 0.03-0.39 711-2) BASO x10^3 (test code 0.01-0.07 = 704-7) Lab Interpretation Abnormal (test code = 34605-2) [facility] Test Item Value Reference Range Interpretation Comments MAGNESIUM (test code = 4189957310) 1.1 mg/dL 1.7-2.4 L Lab Interpretation (test code = Abnormal 02741-0) [facility] (11292)2022-06-30 04:33:29 Test Item Value Reference Range Interpretation Comments NA (test code = 134 mmol/L 135-145 L 0646874970) K (test code = 3.1 mmol/L 3.5-5.0 L 7616212993) CL (test code = 91 mmol/L 98-108 L 5870908645) CO2 TOTAL (test code = 27 mmol/L 23-31 6640386550) AGAP (test code = 16 2-16 4903787108) BUN (test code = 16 mg/dL 7-23 0419694796) GLUCOSE (test code = 89 mg/dL 70-110 5375807785) CREATININE (test code = 2.12 mg/dL 0.50-1.04 H 1403797723) TOTAL BILI (test code = 0.7 mg/dL 0.1-1.4 3319371520) CALCIUM (test code = 8.1 mg/dL 8.6-10.6 L 0925139039) T PROTEIN (test code = 7.1 g/dL 6.3-8.2 1478965533) ALBUMIN (test code = 3.7 g/dL 3.5-5.0 1270035918) ALK PHOS (test code = 141 U/L 34-122 H 0973698449) ALTv (test code = 13 U/L 5-35 1742-6) AST(SGOT) (test code = 19 U/L 13-40 6177308701) eGFR (test code = 23.0 mL/min/1.73m2 8728699234) JOE (test code = JOE) Association of Glomerular Filtration Rate (GFR) and Staging of Kidney Disease* + --+ --+ ------+| GFR (mL/min/1.73 m2) ?| With Kidney Damage ?| ?Without Kidney Damage+ --------+ --------+ +| ?>90 ?| ?Stage one ?| ? Normal ?+ ---+ ---+ -------+| ?60-89 ?| ?Stage two ?| ? Decreased GFR ? + --+ --+ ------+| ?30-59 ?| ?Stage three ?| ? Stage three ? + --+ --+ ------+| ?15-29 ?| ?Stage four ? | ? Stage four ?+ ---+ ---+ -------+| ?<15 (or dialysis) ? ?| ?Stage five ? | ? Stage five ?+ ---+ ---+ -------+ *Each stage assumes the associated GFR level has been in effect for at least three months. ?Stages 1 to 5, with or without kidney disease, indicate chronic kidney disease. Notes: Determination of stages one and two (with eGFR >59mL/min/1.73 m2) requires estimation of kidney damage for at least three months as defined by structural or functional abnormalities of the kidney, manifested by either:Pathological abnormalities or Markers of kidney damage (including abnormalities in the composition of the blood or urine or abnormalities in imaging tests). Lab Interpretation Abnormal (test code = 94968-7) [facility] WITH [id number] 03:27:33 Test Item Value Reference Range Interpretation Comments WBC (test code = 12.52 See_Comment H [Automated 8949-2) message] The system which generated this result transmit camron reference range : 4.30 - 11.10 10*3/?L. The reference range was not used to interpret this result as normal/abnormal . RBC (test code = 4.07 See_Comment [Automated 039-4) message] The system which generated this result transmit camron reference range : 3.93 - 5.25 10*6/?L. The reference range was not used to interpret this result as normal/abnormal . HGB (test code = 10.8 g/dL 11.6-15.0 L 718-7) HCT (test code = 34.5 % 35.7-45.2 L 4544-3) MCV (test code = 84.8 fL 80.6-95.5 787-2) MCH (test code = 26.5 pg 25.9-32.8 785-6) MCHC (test code = 31.3 g/dL 31.6-35.1 L 786-4) RDW-SD (test code = 48.4 fL 39.0-49.9 63448-1) RDW-CV (test code = 15.6 % 12.0-15.5 H 788-0) PLT (test code = 309 See_Comment [Automated 777-3) message] The system which generated this result transmit camron reference range : 166 - 358 10*3/ ?L. The reference range was not u sed to interpret th is result as normal/abnormal . MPV (test code = 11.5 fL 9.5-12.9 72090-6) NRBC/100 WBC (test 0.0 See_Comment [Automat ed code = 0531718132) message] The system which generated this result transmit camron reference range : 0.0 - 10.0 /100 WBCs. The reference range was not used to interpret this result as normal/abnormal . NRBC x10^3 (test code See_Comment [Auto mated = 7010568620) message] The system which generated this result transmit camron reference range : 10*3/?L. The reference range was not used to interpret this result as normal/abnormal . GRAN MAT (NEUT) % 81.3 % (test code = 770-8) IMM GRAN % (test code 0.50 % = 3473697926) LYMPH % (test code = 9.8 % 736-9) MONO % (test code = 7.9 % 5905-5) EOS % (test code = 0.3 % 713-8) BASO % (test code = 0.2 % 706-2) GRAN MAT x10^3(ANC) 10.17 10*3/uL 1.88-7.09 H (test code = 5765298883) IMM GRAN x10^3 (test 0.06 10*3/uL 0.00-0.06 code = 9842943302) LYMPH x10^3 (test code 1.23 10*3/uL 1.32-3.29 L = 731-0) MONO x10^3 (test code 0.99 10*3/uL 0.33-0.92 H = 742-7) EOS x10^3 (test code = 0.04 10*3/uL 0.03-0.39 711-2) BASO x10^3 (test code 0.03 10*3/uL 0.01-0.07 = 704-7) Lab Interpretation Abnormal (test code = 28371-7) [facility]"
[2022-09-27 12:49] LABS: Arterial Blood Carboxyhemoglob 1.4 % (0-1.5); Blood Gas Oxyhemoglobin 88.1 % (94-97); Blood O2 Saturation 90.9 % (92-98.5)
--- NOTE | 2022-09-27 13:39 | RAD REPORT ---
EXAM DESCRIPTION: RADChest Single View09/27/2022 12:58 pm CLINICAL HISTORY: Cough;COPD COMPARISON: Chest Single View dated 06/17/2022; Chest Single View dated 05/08/2022; ABDOMEN ACUTE SERIE S dated 12/25/2008 TECHNIQUE: Portable AP view of the chest. FINDINGS: New patchy airspace opacities in the peripheral left mid lung, and subtle opacities in the lung bases bilaterally. No pneumothorax or effusion. The cardiomediastinal contours are unremarkable . IMPRESSION: Small patchy airspace opacities as above, raising concern for developing pneumonia.
--- NOTE | 2022-09-27 13:47 | ER ---
Nurse's Notes [facility] Name: Amna Lundberg Age: 72 yrs Sex: Female : 1950 Arrival Date: 09/27/2022 Time: 12:24 Bed 4 Private MD: Diagnosis: Hypoxemia;COPD/ Chronic obstructive pulmonary disease with (acute) exacerbation;Acute and chronic respiratory failure with hypercapnia;Obesity, unspecified Presentation: 09/27 12:25 Chief complaint: EMS states: SOB AND PRODUCTIVE COUGH x3 DAYS. Coronavirus screen: At bp this time, the client does not indicate any symptoms associated with coronavirus-19. Ebola Screen: No symptoms or risks identified at this time. Initial Sepsis Screen: Does the patient meet any 2 criteria? HR > 90 bpm. No. Patient's initial sepsis screen is negative. Does the patient have a suspected source of infection? No. Patient's initial sepsis screen is negative. Risk Assessment: Do you want to hurt yourself or someone else? Patient reports no desire to harm self or others. Onset of symptoms is unknown. 12:25 Method Of Arrival: EMS: [facility] bp 12:25 Acuity: DOMENICO 3 bp Triage Assessment: 12:27 General: Appears in no apparent distress. Behavior is cooperative, appropriate for age, bp anxious. Pain: Denies pain. EENT: No deficits noted. Neuro: No deficits noted. Cardiovascular: Rhythm is sinus tachycardia. Respiratory: Reports shortness of breath cough that is productive. GI: No signs and/or symptoms were reported involving the gastrointestinal system. : No signs and/or symptoms were reported regarding the genitourinary system. Derm: No deficits noted. Musculoskeletal: No deficits noted. Historical: - Allergies: 12:27 No Known Allergies; bp - PMHx: 12:27 Chronic obstructive lung disease; Chronic pain; depressive disorder; Hypertensive bp disorder; - PSHx: 12:27 Total abdominal hysterectomy; bp - Immunization history:: Adult Immunizations up to date. - Social history:: Smoking status: Patient/guardian denies using tobacco, but has a distant history of tobacco abuse. Screenin:29 [facility] ED Fall Risk Assessment (Adult) History of falling in the last 3 months, bp including since admission No falls in past 3 months (0 pts). Abuse screen: Denies threats or abuse. Denies injuries from another. Nutritional screening: No deficits noted. Tuberculosis screening: No symptoms or risk factors identified. Assessment: 12:29 General: SEE TRIAGE NOTE. bp 14:07 Reassessment: PHLEBOTOMY CONTACTED FOR BLOOD CX. bp 16:00 Reassessment: No changes from previously documented assessment. Patient is alert, bp oriented x 3, equal unlabored respirations, skin warm/dry/pink. 18:00 Reassessment: No changes from previously documented assessment. Patient is alert, bp oriented x 3, equal unlabored respirations, skin warm/dry/pink. Vital Signs: 12:25 BP 148 / 75; Pulse 101; Resp 20; Temp 98.4; Pulse Ox 98% on 4 lpm NC; bp 14:07 BP 173 / 96; Pulse 77; Resp 16; Pulse Ox 100% ; bp 16:00 BP 136 / 82; Pulse 100; Resp 17; Pulse Ox 91% ; bp 18:00 BP 135 / 86; Pulse 100; Resp 18; Pulse Ox 97% ; bp ED Course: 12:25 Patient arrived in ED. bp 12:26 Triage completed. bp 12:27 David Velez MD is Attending Physician. mariana 12:27 Arm band placed on. bp 12:29 Patient has correct armband on for positive identification. Bed in low position. Call bp light in reach. Side rails up X2. 12:30 Madhu Fernandez, LINDY is Primary Nurse. bp 13:00 XRAY Chest (1 view) In Process Unspecified. EDMS 13:04 Inserted saline lock: 22 gauge in right upper arm, using aseptic technique. bp 13:39 Initial lab(s) drawn, by me, sent to lab. First set of blood cultures drawn by me. aa5 13:46 Mac Wagoner MD is Hospitalizing Provider. mariana 17:08 Thorax Wo Con In Process Unspecified. EDMS Administered Medications: 13:50 Drug: MethylPrednisoLONE IVP 125 mg Route: IVP; Site: right upper arm; aa5 13:50 Drug: NS 0.9% IV 500 ml Route: IV; Rate: bolus; Site: right upper arm; aa5 13:50 Drug: NS 0.9% IV 1000 ml Route: IV; Rate: 125 ml/hr; Site: right upper arm; bp 13:50 Drug: DuoNeb Nebulize (2.5 mg - 0.5 mg) 3 ml Route: Nebulizer; aa5 15:00 Drug: Rocephin IV 2 grams Route: IV; Rate: per protocol; Site: right upper arm; bp 15:00 Drug: Zithromax IVPB 500 mg Route: IVPB; Infused Over: 1 hrs; Site: right upper arm; bp 15:00 Drug: Albuterol Inhalation 5 mg Route: Inhalation; bp Medication: 12:29 VIS not applicable for this client. bp Outcome: 13:47 Decision to Hospitalize by Provider. mariana 22:55 Patient left the ED. kd3 Signatures: Dispatcher [employer] EDCT David Velez MD MD cha Calderon, Audri, RN RN galina5 Madhu Fernandez, RN RN Alla Garcia RN RN kd3
--- NOTE | 2022-09-27 13:47 | EDPHYS ---
Physician Documentation [facility] Name: Amna Lundberg Age: 72 yrs Sex: Female : 1950 Arrival Date: 09/27/2022 Time: 12:24 Bed 4 Private MD: ED Physician David Velez HPI: 09/27 13:37 This 72 yrs old Female presents to ER via EMS with complaints of Cough. mariana 13:37 The patient or guardian reports airway noise, cough, that is constant. Onset: The mariana symptoms/episode began/occurred 3 day(s) ago. Severity of symptoms: At their worst the symptoms were mild, moderate, in the emergency department the symptoms are unchanged. Modifying factors: The symptoms are alleviated by cool environment. Associated signs and symptoms: The patient has no apparent associated signs or symptoms. Unable to obtain HPI due to baseline dementia. The patient has experienced similar episodes in the past, multiple times. Historical: - Allergies: 12:27 No Known Allergies; bp - PMHx: 12:27 Chronic obstructive lung disease; Chronic pain; depressive disorder; Hypertensive bp disorder; - PSHx: 12:27 Total abdominal hysterectomy; bp - Immunization history:: Adult Immunizations up to date. - Social history:: Smoking status: Patient/guardian denies using tobacco, but has a distant history of tobacco abuse. ROS: 13:38 Constitutional: Negative for fever, chills, and weight loss, Eyes: Negative for injury, mariana pain, redness, and discharge, ENT: Negative for injury, pain, and discharge, Neck: Negative for injury, pain, and swelling, Cardiovascular: Negative for chest pain, palpitations, and edema, Abdomen/GI: Negative for abdominal pain, nausea, vomiting, diarrhea, and constipation, Back: Negative for injury and pain, : Negative for injury, bleeding, discharge, and swelling, MS/Extremity: Negative for injury and deformity, Skin: Negative for injury, rash, and discoloration, Neuro: Negative for headache, weakness, numbness, tingling, and seizure, Psych: Negative for depression, anxiety, suicide ideation, homicidal ideation, and hallucinations, Allergy/Immunology: Negative for hives, rash, and allergies, Endocrine: Negative for neck swelling, polydipsia, polyuria, polyphagia, and marked weight changes, Hematologic/Lymphatic: Negative for swollen nodes, abnormal bleeding, and unusual bruising. 13:38 Respiratory: Positive for cough, dyspnea on exertion, shortness of breath, wheezing, inspiratory, expiratory. 13:38 MS/extremity: Negative for acute changes. Exam: 13:38 Constitutional: This is a well developed, well nourished patient who is awake, alert, mariana and in no acute distress. Head/Face: Normocephalic, atraumatic. Eyes: Pupils equal round and reactive to light, extra-ocular motions intact. Lids and lashes normal. Conjunctiva and sclera are non-icteric and not injected. Cornea within normal limits. Periorbital areas with no swelling, redness, or edema. ENT: Nares patent. No nasal discharge, no septal abnormalities noted. Tympanic membranes are normal and external auditory canals are clear. Oropharynx with no redness, swelling, or masses, exudates, or evidence of obstruction, uvula midline. Mucous membranes moist. Neck: Trachea midline, no thyromegaly or masses palpated, and no cervical lymphadenopathy. Supple, full range of motion without nuchal rigidity, or vertebral point tenderness. No Meningismus. Chest/axilla: Normal chest wall appearance and motion. Nontender with no deformity. No lesions are appreciated. Cardiovascular: Regular rate and rhythm with a normal S1 and S2. No gallops, murmurs, or rubs. Normal PMI, no JVD. No pulse deficits. Abdomen/GI: Soft, non-tender, with normal bowel sounds. No distension or tympany. No guarding or rebound. No evidence of tenderness throughout. Back: No spinal tenderness. No costovertebral tenderness. Full range of motion. Female : Normal external genitalia. Skin: Warm, dry with normal turgor. Normal color with no rashes, no lesions, and no evidence of cellulitis. MS/ Extremity: Pulses equal, no cyanosis. Neurovascular intact. Full, normal range of motion. Neuro: Awake and alert, GCS 15, oriented to person, place, time, and situation. Cranial nerves II-XII grossly intact. Motor strength 5/5 in all extremities. Sensory grossly intact. Cerebellar exam normal. Normal gait. Psych: Awake, alert, with orientation to person, place and time. Behavior, mood, and affect are within normal limits. 13:38 ECG was reviewed by the Attending Physician. 13:38 Respiratory: moderate respiratory distress is noted, Respirations: labored breathing, that is mild, Breath sounds: bronchial sounds, decreased breath sounds, rhonchi, that are mild, that are moderate, are scattered, stridor, is not appreciated, + upper airway congestion. wheezing: inspiratory expiratory Respiratory rate: 22 Vital Signs: 12:25 BP 148 / 75; Pulse 101; Resp 20; Temp 98.4; Pulse Ox 98% on 4 lpm NC; bp 14:07 BP 173 / 96; Pulse 77; Resp 16; Pulse Ox 100% ; bp 16:00 BP 136 / 82; Pulse 100; Resp 17; Pulse Ox 91% ; bp 18:00 BP 135 / 86; Pulse 100; Resp 18; Pulse Ox 97% ; bp MDM: 12:27 Patient medically screened. [facility] 13:40 Differential diagnosis: asthma, Bronchitis CHF exacerbation, Chronic Obstructive mariana Pulmonary Disease acute asthma, CHF, pneumonia, Pneumothorax pulmonary edema, reactive airway disease, Sepsis Unstable Angina. Antibiotic administration: Rocephin and Zithromax given. Differential Diagnosis: Obstructed Airway Bronchitis Influenza Upper Respiratory Infection Sinusitis Pharyngitis Asthma Exacerbation Viral Syndrome Pneumonia. Immunization status: Pneumococcal vaccine: within last 5 years. Influenza vaccine: within last 5 years. Data reviewed: vital signs, nurses notes, lab test result(s), EKG, radiologic studies. Consideration of Admission/Observation Escalation of care including admission/observation considered. I considered the following discharge prescriptions or medication management in the emergency department Antibiotics: At this time antibiotics are not recommended. Test considered but Not performed: CT: NO CT CHEST. Care significantly affected by the following chronic conditions: Hypertension, Chronic Obstructive Pulmonary Disease, DEPRESSION, CHRONIC PAIN. Counseling: I had a detailed discussion with the patient and/or guardian regarding: the historical points, exam findings, and any diagnostic results supporting the discharge/admit diagnosis, lab results, radiology results, the need for further work-up and treatment in the hospital. 13:44 Independent interpretation of the following test(s) in the Emergency Department EKG: mariana See my EKG interpretation above. Historians other than the Patient: EMS: EMS, WELL INFORMED. 09/27 12:32 Order name: Basic Metabolic Panel; Complete Time: 17:16 [facility] 09/27 12:32 Order name: CBC with Diff; Complete Time: 17:16 [facility] 09/27 12:32 Order name: LFT's; Complete Time: 17:16 [facility] 09/27 12:32 Order name: Magnesium; Complete Time: 17:16 [facility] 09/27 12:32 Order name: NT PRO-BNP; Complete Time: 17:16 [facility] 09/27 12:32 Order name: PT-INR; Complete Time: 17:16 [facility] 09/27 12:32 Order name: Troponin HS; Complete Time: 17:16 [facility] 09/27 12:32 Order name: Flu; Complete Time: 17:16 [facility] 09/27 12:32 Order name: Blood Culture Adult (2) 09/27 12:32 Order name: Lactate w/ 2H reflex if indic.; Complete Time: 17:16 [facility] 09/27 12:32 Order name: ABG; Complete Time: 13:27 [facility] 09/27 13:32 Order name: SARS-COV-2 RT PCR; Complete Time: 17:16 [facility] 09/27 16:38 Order name: Magnesium EDMS 09/27 16:38 Order name: Phosphorus EDMS 09/27 16:38 Order name: T4 Free EDMS 09/27 16:38 Order name: Thyroid Stimulating Hormone EDMS 09/27 16:38 Order name: Urinalysis w/ reflexes EDMS 09/27 16:38 Order name: CBC with Automated Diff EDMS 09/27 16:38 Order name: CBC with Automated Diff EDMS 09/27 16:38 Order name: Comprehensive Metabolic Panel EDMS 09/27 16:38 Order name: Comprehensive Metabolic Panel EDMS 09/27 12:32 Order name: XRAY Chest (1 view); Complete Time: 17:16 [facility] 09/27 16:35 Order name: Thorax Wo Con [facility]FL 09/27 12:32 Order name: EKG; Complete Time: 12:33 [facility] 09/27 21:07 Order name: 60g Consistent Carbohydrate (ADA 1800/2000) [facility] 09/27 12:32 Order name: Cardiac monitoring; Complete Time: 12:40 [facility] 09/27 12:32 Order name: EKG - Nurse/Tech; Complete Time: 12:40 [facility] 09/27 12:32 Order name: IV Saline Lock; Complete Time: 13:04 [facility] 09/27 12:32 Order name: Labs collected and sent; Complete Time: 14:03 [facility] 09/27 12:32 Order name: O2 Per Protocol; Complete Time: 12:40 [facility] 09/27 12:32 Order name: O2 Sat Monitoring; Complete Time: 12:40 mariana EC:38 Rate is 90 beats/min. Rhythm is regular. QRS [place] is Normal. OR interval is normal. QRS mariana interval is normal. QT interval is normal. No Q waves. T waves are Normal. No ST changes noted. Clinical impression: NSR w/ Non-specific ST/T Changes and No evidence of ischemia. Interpreted by me. Reviewed by me. Administered Medications: 13:50 Drug: MethylPrednisoLONE IVP 125 mg Route: IVP; Site: right upper arm; aa5 13:50 Drug: NS 0.9% IV 500 ml Route: IV; Rate: bolus; Site: right upper arm; aa5 13:50 Drug: NS 0.9% IV 1000 ml Route: IV; Rate: 125 ml/hr; Site: right upper arm; bp 13:50 Drug: DuoNeb Nebulize (2.5 mg - 0.5 mg) 3 ml Route: Nebulizer; aa5 15:00 Drug: Rocephin IV 2 grams Route: IV; Rate: per protocol; Site: right upper arm; bp 15:00 Drug: Zithromax IVPB 500 mg Route: IVPB; Infused Over: 1 hrs; Site: right upper arm; bp 15:00 Drug: Albuterol Inhalation 5 mg Route: Inhalation; bp Disposition Summary: 09/27/22 13:47 Hospitalization Ordered Hospitalization Status: Inpatient Admission mariana Provider: Mac Wagoner cha Location: Telemetry/MedSurg (Inpatient) mariana Condition: Fair mariana Problem: new mariana Symptoms: have improved mariana Bed/Room Type: Standard mariana Room Assignment: 211(09/27/22 18:42) bd Diagnosis - Hypoxemia mariana - COPD/ Chronic obstructive pulmonary disease with (acute) exacerbation mariana - Acute and chronic respiratory failure with hypercapnia mariana - Obesity, unspecified mariana Forms: - Medication Reconciliation Form mariana - SBAR form mariana Signatures: Dispatcher [employer] EDYokasta Jack Corey, MD MD cha Calderon, Audri, RN RN aa5 Madhu Fernandez, RN RN bp Corrections: (The following items were deleted from the chart) 13:32 12:33 SARS-COV-2 Antigen Rapid+I.LAB.BRZ ordered. EDMS EDMS 16:42 16:38 Heart Healthy ordered. EDMS EDMS 18:42 13:47 mariana bd
[2022-09-27 13:52] LABS: Absolute Lymphocytes (CBC) 1.3 K/uL (0.7-4.9); Hematocrit 32.1 % (36.0-45.0); Lymphocytes % 18.5 % (15.3-44.8); MCV 83.9 fL (80-100); MPV 8.3 fL (7.6-11.3); RBC Red Blood Cell Count 3.82 M/uL (3.86-4.86)
[2022-09-27 13:59] LABS: Protime INR 0.99
[2022-09-27] MEDS ORDERED: NA CHLORIDE 0.9% 500 ML ONE (13:59)
[2022-09-27] MEDS ORDERED: ALBUTEROL 2.5 MG/3 ML NEB SOL ONE ×2 (13:59→15:17)
[2022-09-27] MEDS ORDERED: NA CHLORIDE 0.9% 1,000 ML ONE (13:59)
[2022-09-27] MEDS ORDERED: IPRATROPIUM BROM 0.5MG/2.5ML ONE (13:59)
[2022-09-27] MEDS ORDERED: METHYLPREDNISOLONE 125 MG INJ ONE (13:59)
[2022-09-27 14:17] LABS: ALT/SGPT 28 U/L (13-56); AST/SGOT 23 U/L (15-37); Albumin 3.3 g/dL (3.4-5.0); Alkaline Phosphatase 215 U/L (45-117); BUN Blood Urea Nitrogen 15 mg/dL (7-18); Bicarbonate 32 mEq/L (21-32); Bilirubin Total 0.2 mg/dL (0.2-1.0); Glomerular Filtration Rate 38 ml/min (=/>90); Glucose Level 120 mg/dL (74-106); Magnesium 1.6 mg/dL (1.6-2.4); NT PRO-BNP 621 pg/mL (<125); Potassium 3.8 mEq/L (3.5-5.1); Protein, Total 7.9 g/dL (6.4-8.2); Sodium Level 135 mEq/L (136-145)
[2022-09-27 14:33] LABS: Bilirubin Direct < 0.1 mg/dL (0-0.2); Bilirubin Indirect, Calculated ND mg/dL (0.2-0.8)
[2022-09-27] MEDS ORDERED: CEFTRIAXONE 2000 MG/VIAL ONE (15:17)
[2022-09-27] MEDS ORDERED: NA CHLORIDE 0.9% 250 ML ONE (15:18)
[2022-09-27] MEDS ORDERED: AZITHROMYCIN 500 MG INJ IVPB ONE (15:18)
[2022-09-27] MEDS ORDERED: ACETAMINOPHEN 325 MG TABLET PO PRN (16:33)
[2022-09-27] MEDS ORDERED: ONDANSETRON 4 MG/2 ML VIAL IV PRN (16:36)
--- NOTE | 2022-09-27 16:39 | P.HP ---
Certification for Inpatient Patient admitted to: Inpatient With expected LOS: >2 Midnights Patient will require the following post-hospital care: None Practitioner: I am a practitioner with admitting privileges, knowledge of patient current condition, hospital course, and medical plan of care. Services: Services provided to patient in accordance with Admission requirements found in Title 42 Section 412.3 of the Code of Federal Regulations Patient History Date of Service: 09/27/22 Reason for admission: Shortness of breath History of Present Illness: Patient is a 72-year-old female with a past medical history significant for COPD, hypertension, depression, hypothyroidism, GERD, DM 2 who presents with complaint of shortness of breath that has been ongoing for the past 3 days. Patient reported that he ran out of her inhaler 2 days ago. Patient reported associated signs and symptoms of cough, sore throat, headache, dizziness, fever, chills and wheezing. Patient denies any other signs and symptoms. Symptoms are aggravated or relieved by nothing. Patient is a poor historian and unable to provide accurate history. Patient reported that she was seen at a facility where her O2 sat was noted to be 83% on room air and was sent to the ER for further management. Allergies No Known Allergies Allergy (Verified 05/10/22 11:45) Home Medications: Amlodipine Besylate/Benazepril [Amlodipine-Benazepril 10-40 mg] 1 each PO DAILY 05/10/22 Atorvastatin Calcium 40 mg PO DAILY 05/10/22 Esomeprazole Mag Trihydrate [Nexium] 40 mg PO DAILY 05/10/22 Hydrocodone Bit/Acetaminophen [Hydrocodon-Acetaminoph 7.5-325] 1 tab PO TID PRN 05/10/22 Levothyroxine Sodium 100 mcg PO BEDTIME 05/10/22 Pioglitazone HCl [Actos] 15 mg PO DAILY 05/10/22 Spironolactone 25 mg PO DAILY 05/10/22 predniSONE [Prednisone*] 20 mg PO BIDL 4 Days #8 tab 05/11/22 - Past Medical/Surgical History Diabetic: No -: Hypertension -: COPD -: DM 2 -: Obesity -: Hypothyroidism -: GERD -: Hyperlipidemia -: Appendectomy -: Hysterectomy -: Cholecystectomy Psychosocial/ Personal History: Patient lives at home with her daughter. - Family History Mother -: Cancer - Social History Smoking Status: Former smoker Alcohol use: No CD- Drugs: No Caffeine use: Yes Place of Residence: Home Review of Systems General: Fever, Chills Eyes: Unremarkable ENT: Throat Pain Respiratory: Cough, Shortness of Breath, Wheezing Cardiovascular: Unremarkable Gastrointestinal: Unremarkable Genitourinary: Unremarkable Musculoskeletal: Unremarkable Integumentary: Unremarkable Neurological: Other (Headache, dizziness) Lymphatics: Unremarkable Physical Examination - Physical Exam General: Alert, Oriented x3, Cooperative, Mild distress HEENT: Atraumatic, PERRLA, Mucous membr. moist/pink, EOMI, Sclerae nonicteric Neck: Supple, 2+ carotid pulse no bruit, No LAD, Without JVD or thyroid abnormality Respiratory: Diminished, Expiratory wheezes Cardiovascular: No edema, Regular rate/rhythm, Normal S1 S2 Capillary refill: <2 Seconds Gastrointestinal: Normal bowel sounds, Soft and benign, No tenderness Musculoskeletal: No clubbing, No tenderness Integumentary: No rashes, No breakdown, No significant lesion Neurological: Normal speech, Normal strength at 5/5 x4 extr, Normal tone, Normal affect Lymphatics: No axilla or inguinal lymphadenopathy - Studies Laboratory Data (last 24 hrs) 09/27/22 13:39: PT 10.9, INR 0.99 09/27/22 13:39: WBC 6.80, Hgb 10.2 L, Hct 32.1 L, Plt Count 272 09/27/22 13:39: Sodium 135 L, Potassium 3.8, BUN 15, Creatinine 1.48 H, Glucose 120 H, Magnesium 1.6, Total Bilirubin 0.2, AST 23, ALT 28, Alkaline Phosphatase 215 H Microbiology Data (last 24 hrs): 09/27/22 13:25 Nasopharnyx Influenza Type A Antigen Screen - Final 09/27/22 13:25 Nasopharnyx Influenza Type B Antigen Screen - Final Assessment and Plan - Plan --Pneumonia. Noted on imaging. Patient placed on antibiotics, neb treatment with albuterol\Atrovent. Continue O2 therapy. -- Acute on chronic COPD exacerbation. Continue current treatment regimen. --Depression. Continue home medication when available. --Hypertension. Poorly controlled. Continue home medication and labetalol as needed. -- Hyperlipidemia. Continue statin. --Hypothyroidism. Continue Synthroid. --GERD. Continue home medication. --DM2. BS monitoring with sliding scale insulin. -- Microcytic anemia. H&H stable. We will continue to monitor hemoglobin and transfuse if less than 7.0. -- CKD 3B. Stable. We will continue to monitor renal function. --Obesity. Likely secondary to excess calories intake. Patient counseled on weight reduction, diet and excise therapy. -- DVT prophylaxis with Lovenox subQ. Discharge Plan: Home Plan to discharge in: Greater than 2 days - Advance Directives Does patient have a Living Will: No Does patient have a Durable POA for Healthcare: No - Code Status/Comfort Care Code Status Assessed: Yes Physician Review: Patient Assessed, Agree with Above Assessment and Plan Critical Care: No
--- NOTE | 2022-09-27 17:20 | RAD REPORT ---
EXAM DESCRIPTION: CT - Thorax Wo Con - 09/27/2022 5:06 pm CLINICAL HISTORY: R O PNA COMPARISON: Chest Single View dated 09/27/2022; Chest Single View dated 06/17/2022 TECHNIQUE: Axial thin cut images of the chest were obtained without IV contrast. Multiplanar reforma ts were generated and reviewed. All CT scans are performed using dose optimization technique as appropriate and may include automated exposure control or mA/KV adjustment according to patient size. FINDINGS: Consolidative pleural-based focus in the peripheral left upper lobe, measuring up to 3.0 x 1.2 centimeter in greatest axial dimensions. Reticular opacities and confluent nodularity in the med ial basal right lower lobe, axial image 37. 5 millimeter subpleural anterior left lower lobe nodule o n axial image 44 millimeter left lower lobe nodule on axial image 43. 3 millimeter right apical nodul e posteriorly on axial image 11, and another peribronchovascular 3 millimeter right upper lobe nodule on axial image 18. Calcified small granulomas in the medial right middle lobe. No pleural thickening or pleural effusion. No pneumothorax. No suspicious mediastinal or hilar masses or lymphadenopathy seen. Calcified AP window lymph nodes mo st suggestive of sequelae of remote granulomatous infection. Prominent caliber of the main pulmonary artery No significant aortic or pulmonary artery findings. Assessment is limited in the absence of IV contrast. No chest wall mass or abnormal axillary lymphadenopathy. Evaluation of the solid abdominal structures reveals no suspicious findings. IMPRESSION: Consolidative 3 centimeter peripheral left upper lobe opacity. Numerous other pulmonary nodules, some of which demonstrating confluence in the medial right lower lobe. Findings could reflec t an infectious process. Short-term interval follow-up CT in 1-3 months or following resolution of an y acute symptoms is recommended, to exclude underlying suspicious nodules. Prominent caliber of the main pulmonary artery, could reflect sequelae of pulmonary hypertension. Ple ase correlate clinically. Other findings as detailed above.
[2022-09-27] MEDS: AZITHROMYCIN IV 500 MG in NA CHLORIDE 0.9% 250 ML IVPB SCH (18:00)
[2022-09-27] MEDS: IPRATROPIUM BROM 0.5MG/2.5ML NEB SCH (20:00)
[2022-09-27] MEDS: ALBUTEROL 2.5 MG/3 ML NEB SOL NEB SCH (20:00)
[2022-09-27] MEDS: CEFTRIAXONE 1,000 MG in NA CHLORIDE 0.9% 50 ML IVPB SCH (21:00)
[2022-09-27] MEDS ORDERED: D50W 25 GM/50 ML SYRINGE IV PRN (21:05)
[2022-09-27] MEDS ORDERED: GLUCAGON 1 MG/VIAL IM PRN (21:05)
[2022-09-27] MEDS ORDERED: D10W 125 ML IV PRN (23:44)
[2022-09-28] MEDS: SERTRALINE HCL 100 MG TAB PO SCH ×2 (01:21→20:49)
[2022-09-28] MEDS: guaiFENesin 100 MG/5 ML UCUP PO SCH ×4 (01:21→20:49)
[2022-09-28] MEDS: IPRATROPIUM BROM 0.5MG/2.5ML NEB SCH ×4 (02:15→20:00)
[2022-09-28] MEDS: ALBUTEROL 2.5 MG/3 ML NEB SOL NEB SCH ×4 (02:15→20:00)
[2022-09-28 03:13] VITALS: BMI 35.8
[2022-09-28 03:38] LABS: Absolute Lymphocytes (CBC) 0.7 K/uL (0.7-4.9); Lymphocytes % 12.1 % (15.3-44.8); MCV 83.2 fL (80-100); MPV 8.4 fL (7.6-11.3); RBC Red Blood Cell Count 3.48 M/uL (3.86-4.86)
[2022-09-28 04:02] LABS: Albumin 2.9 g/dL (3.4-5.0); Bilirubin Total 0.2 mg/dL (0.2-1.0); Potassium 4.2 mEq/L (3.5-5.1); Protein, Total 6.7 g/dL (6.4-8.2)
[2022-09-28 04:08] LABS: Magnesium 1.5 mg/dL (1.6-2.4); Thyroid Stimulating Hormone 2.87 uIU/mL (0.358-3.740)
--- NOTE | 2022-09-28 04:56 | EKG ---
Test Date: 2022-09-27 Test Time: 12:37:42 [employer] Assistant: BP MEASUREMENT RESULTS: Intervals: Rate: 90 FL: 128 QRSD: 96 QT: 388 QTc: 474 [place]: P: 86 FL: 128 QRS: 10 T: 78 INTERPRETIVE STATEMENTS: Sinus rhythm Normal ECG Compared to ECG 06/17/2022 19:13:50 Sinus tachycardia no longer present Incomplete right bundle-branch block no longer present Electronically Signed On 09-28-22 04:53:51 CDT by Yaniv Barone
--- NOTE | 2022-09-28 07:03 | P.PN ---
Date of Service: 09/28/22 Subjective: Feeling slightly better this morning remains SOB with exertion; improving Diarrhea yesterday - thinks there may have been some blood in stool or urine yesterday minimal appetite ROS: 10 point ROS as noted above, otherwise negative Physical Exam: GEN: Alert, oriented, NAD HEENT: Normal conjunctiva, sclera anicteric CV: Regular rate and rhythm, no edema Pulm: mild labored respirations on 2L NC at rest, diminished at bases b/l, expiratory wheezes ABD: Soft, nontender, nondistended Neuro: Normal speech, normal affect vitals reviewed Problem List: Acute hypoxemic respiratory failure secondary to acute on chronic COPD exacerbation Pneumonia, suspected Microcytic anemia CKD 3B Hypertension Hyperlipidemia Hypothyroidism GERD Depression Obesity Acute hypoxemic respiratory failure secondary to acute on chronic COPD exacerbation Pneumonia, suspected continue antibiotics - rocephin/azithro 3cm SADA mass/opacity - possible infxn will need repeat CT in next few months pulm consulted steroids neb treatment with albuterol\Atrovent Continue O2 therapy wean as tolerated not on O2 at home DM2 - ruled out incorrectly labeled on admission. patient does not have diabetes dc accucheks/sliding scale Microcytic anemia - H&H stable. CKD 3B - Stable. We will continue to monitor renal function. Hypertension - Poorly controlled. Continue home medication and PRN meds if needed Hyperlipidemia - Continue statin Hypothyroidism - Continue Synthroid GERD - Continue home antacide Depression - Continue home medication VTE: Lovenox subQ Code: Full Dispo: Home ~1-2 days pending improvement, PO intake, wean O2
[2022-09-28] MEDS: INSULIN -REGULAR HUMAN 50 UNIT/0.5 ML ML SQ SCH ×2 (07:30→11:30)
[2022-09-28] MEDS: LABETALOL 20 MG/4ML SYRINGE IV PRN (07:43)
[2022-09-28] MEDS: CEFTRIAXONE 1,000 MG in NA CHLORIDE 0.9% 50 ML IVPB SCH (08:58)
[2022-09-28] MEDS: ENOXAPARIN 40 MG/0.4 ML SQ SCH (08:58)
[2022-09-28] MEDS: ASPIRIN 81 MG CHEWABLE TABLET PO SCH (08:59)
[2022-09-28] MEDS: AZITHROMYCIN IV 500 MG in NA CHLORIDE 0.9% 250 ML IVPB SCH (08:59)
[2022-09-28] MEDS: POTASS/SODIUM PHOSPHATE 1 PKT POWD.PACK PO SCH (08:59)
[2022-09-28] MEDS: HYDROCODONE/APAP 5/325 MG TAB PO PRN (10:59)
--- NOTE | 2022-09-28 12:32 | P.CNS ---
Date of Consult: 09/28/22 Reason for Consult: Shortness of breath possible pneumonia Chief Complaint: Shortness of breath History of Present Illness: Patient is 72 years of age sick for the past 4 days complaining of worsening shortness of breath productive cough have a history of COPD and out of all her inhalers and appeared in the hospital with possible pneumonia denies any chest pain Allergies No Known Allergies Allergy (Verified 05/10/22 11:45) Home Medications: Amlodipine Besylate/Benazepril [Amlodipine-Benazepril 10-40 mg] 1 each PO DAILY 05/10/22 Atorvastatin Calcium 40 mg PO DAILY 05/10/22 Esomeprazole Mag Trihydrate [Nexium] 40 mg PO DAILY 05/10/22 Hydrocodone Bit/Acetaminophen [Hydrocodon-Acetaminoph 7.5-325] 1 tab PO TID PRN 05/10/22 Levothyroxine Sodium 100 mcg PO BEDTIME 05/10/22 Pioglitazone HCl [Actos] 15 mg PO DAILY 05/10/22 Spironolactone 25 mg PO DAILY 05/10/22 predniSONE [Prednisone*] 20 mg PO BIDL 4 Days #8 tab 05/11/22 - Past Medical/Surgical History Diabetic: No -: Hypertension -: COPD -: DM 2 -: Obesity -: Hypothyroidism -: GERD -: Hyperlipidemia -: Appendectomy -: Hysterectomy -: Cholecystectomy Psychosocial/ Personal History: Patient lives at home with her daughter. - Family History Mother History Unknown: Yes Medical History: Cancer - Social History Smoking Status: Former smoker Alcohol use: No CD- Drugs: No Caffeine use: Yes Place of Residence: Home Review of Systems 10-point ROS is otherwise unremarkable General: Weakness Respiratory: Cough, Shortness of Breath Physical Examination Temp Pulse Resp BP Pulse Ox 97.3 F 86 20 143/78 H 97 09/28/22 08:00 09/28/22 08:00 09/28/22 08:00 09/28/22 08:00 09/28/22 08:00 General: Alert, Oriented x3 HEENT: Atraumatic Neck: Supple Respiratory: Expiratory wheezes Cardiovascular: No edema, Regular rate/rhythm, Normal S1 S2 Gastrointestinal: Normal bowel sounds, Soft and benign Laboratory Data (last 24 hrs) 09/27/22 13:39: PT 10.9, INR 0.99 09/27/22 13:39: WBC 6.80, Hgb 10.2 L, Hct 32.1 L, Plt Count 272 09/27/22 13:39: Sodium 135 L, Potassium 3.8, BUN 15, Creatinine 1.48 H, Glucose 120 H, Magnesium 1.6, Total Bilirubin 0.2, AST 23, ALT 28, Alkaline Phosphatase 215 H - Problems (1) COPD exacerbation Current Visit: Yes Status: Acute Plan: Patient is 72 years of age admitted with COPD exacerbation CT scan is abnormal she does have a left upper lobe 3 cm peripheral opacity need to follow-up with repeat CT scan at risk for malignancy patient has renal insufficiency otherwise doing well vital signs stable blood pressure elevated stable discharge levofloxacin addition to low-dose prednisone patient will need to have her inh donna filled follow-up with me in [address] scan report Consolidative 3 centimeter peripheral left upper lobe opacity. Numerous other pulmonary nodules, some of which demonstrating confluence in the medial right lower lobe. Findings could reflect an infectious process. Short-term interval follow-up CT in 1-3 months or following resolution of any acute symptoms is recommended, to exclude underlying suspicious nodules.
[2022-09-28] MEDS: SPIRONOLACTONE 25 MG TABLET PO SCH (13:59)
[2022-09-28] MEDS: predniSONE 20 MG TAB PO SCH (17:10)
[2022-09-28] MEDS: MELATONIN 5 MG TABLET PO SCH (20:48)
[2022-09-28] MEDS: LEVOTHYROXINE SOD 0.1 MG TAB PO SCH (20:49)
[2022-09-28] MEDS ORDERED: Magnesium Sulfate 2gm IVPB 2 G/50 ML BAG IV ONE (21:00)
[2022-09-28] MEDS ORDERED: HOME MED 1 EA UNK (Levothyroxine Sodium [Levothyroxine Sodium] 100 MCG Capsule) PO SCH (21:00)
[2022-09-29] MEDS: IPRATROPIUM BROM 0.5MG/2.5ML NEB SCH ×4 (03:10→19:55)
[2022-09-29] MEDS: ALBUTEROL 2.5 MG/3 ML NEB SOL NEB SCH ×4 (03:10→19:55)
[2022-09-29 04:02] LABS: Absolute Lymphocytes (CBC) 0.7 K/uL (0.7-4.9); Hematocrit 30.3 % (36.0-45.0); Lymphocytes % 8.6 % (15.3-44.8); MCV 84.3 fL (80-100); MPV 8.7 fL (7.6-11.3)
[2022-09-29 04:15] LABS: Magnesium 2.4 mg/dL (1.6-2.4); Potassium 5.1 mEq/L (3.5-5.1)
[2022-09-29] MEDS: LABETALOL 20 MG/4ML SYRINGE IV PRN (05:00)
--- NOTE | 2022-09-29 07:08 | P.PN ---
Date of Service: 09/29/22 Subjective: Feeling slightly better; able to sleep well overnight breathing feels slightly easier today no new / worsening problems afebrile ROS: 10 point ROS as noted above, otherwise negative Physical Exam: GEN: Alert, oriented, NAD HEENT: Normal conjunctiva, sclera anicteric CV: Regular rate and rhythm, no edema Pulm: mild labored respirations on 2L NC at rest, diminished at bases b/l, expiratory wheezes ABD: Soft, nontender, nondistended Neuro: Normal speech, normal affect vitals reviewed Problem List: Acute hypoxemic respiratory failure secondary to acute on chronic COPD exacerbation Pneumonia, suspected Microcytic anemia CKD 3B Hypertension Hyperlipidemia Hypothyroidism GERD Depression Obesity Acute hypoxemic respiratory failure secondary to acute on chronic COPD exacerbation Pneumonia, suspected 3cm SADA mass/opacity - possible infxn will need repeat CT in next few months pulm consulted, changed rocephin/azithro to levaquin steroids neb treatment with albuterol\Atrovent Continue O2 therapy wean as tolerated not on O2 at home DM2 - ruled out incorrectly labeled on admission. patient denies having diabetes, A1c normal dc accucheks/sliding scale Microcytic anemia - H&H stable. CKD 3B - Stable. We will continue to monitor renal function. Hypertension - Poorly controlled. Continue home medication and PRN meds if needed Hyperlipidemia - Continue statin Hypothyroidism - Continue Synthroid GERD - Continue home antacide Depression - Continue home medication VTE: Lovenox subQ Code: Full Dispo: Home ~1-2 days pending improvement, PO intake, wean O2
[2022-09-29 08:10] LABS: Blood Morphology Comment NOT SEEN (NOT SEEN); Platelet Estimate ADEQ
[2022-09-29] MEDS: ENOXAPARIN 40 MG/0.4 ML SQ SCH (08:19)
[2022-09-29] MEDS: predniSONE 20 MG TAB PO SCH ×2 (08:19→17:29)
[2022-09-29] MEDS: levoFLOXacin 500 MG TAB PO SCH (08:19)
[2022-09-29] MEDS: ASPIRIN 81 MG CHEWABLE TABLET PO SCH (08:20)
[2022-09-29] MEDS: AMLODIPINE 10 MG TAB PO SCH (08:25)
[2022-09-29] MEDS: guaiFENesin 100 MG/5 ML UCUP PO SCH ×3 (08:25→21:30)
[2022-09-29] MEDS: SPIRONOLACTONE 25 MG TABLET PO SCH (08:32)
[2022-09-29] MEDS: SERTRALINE HCL 100 MG TAB PO SCH (21:30)
[2022-09-29] MEDS: MELATONIN 5 MG TABLET PO SCH (21:30)
[2022-09-29] MEDS: LEVOTHYROXINE SOD 0.1 MG TAB PO SCH (21:30)
[2022-09-30] MEDS: IPRATROPIUM BROM 0.5MG/2.5ML NEB SCH ×4 (01:55→19:20)
[2022-09-30] MEDS: ALBUTEROL 2.5 MG/3 ML NEB SOL NEB SCH ×4 (01:55→19:20)
[2022-09-30 03:26] LABS: Absolute Lymphocytes (CBC) 0.8 K/uL (0.7-4.9); Hematocrit 30.4 % (36.0-45.0); Lymphocytes % 8.4 % (15.3-44.8); MCV 83.9 fL (80-100); MPV 8.4 fL (7.6-11.3); RBC Red Blood Cell Count 3.63 M/uL (3.86-4.86)
[2022-09-30 03:31] LABS: Magnesium 2.1 mg/dL (1.6-2.4); Potassium 4.7 mEq/L (3.5-5.1)
[2022-09-30] MEDS: HYDROCODONE/APAP 5/325 MG TAB PO PRN ×2 (05:39→21:15)
--- NOTE | 2022-09-30 07:12 | P.PN ---
Date of Service: 09/30/22 Subjective: Feeling better appetite improving, no diarrhea no new / worsening problems remains on 2L O2 ROS: 10 point ROS as noted above, otherwise negative Physical Exam: GEN: Alert, oriented, NAD HEENT: Normal conjunctiva, sclera anicteric CV: Regular rate and rhythm, trace b/l pedal edema Pulm: non labored respirations on 2L NC at rest, diminished at bases b/l, mild expiratory wheezes ABD: Soft, nontender, nondistended Neuro: Normal speech, normal affect vitals reviewed Problem List: Acute hypoxemic respiratory failure secondary to acute on chronic COPD exacerbation Pneumonia, suspected Microcytic anemia CKD 3B Hypertension Hyperlipidemia Hypothyroidism GERD Depression Obesity Acute hypoxemic respiratory failure secondary to acute on chronic COPD exacerbation Pneumonia, suspected 3cm SADA mass/opacity - possible infxn will need repeat CT in next few months pulm consulted changed rocephin/azithro to levaquin steroids nebs wean O2 as tolerated hospice social worker consulted for home O2 setup; check room air sats Microcytic anemia - H&H stable. CKD 3B - Stable. Hypertension - Continue home medication and PRN meds if needed Hyperlipidemia - Continue statin Hypothyroidism - Continue Synthroid GERD - Continue home antacid Depression - Continue home medication DM2 - ruled out - incorrectly labeled on admission. patient denies having diabetes, A1c normal, dc accucheks/sliding scale VTE: Lovenox subQ Code: Full Dispo: Home ~1-2 days business services analyst assisting with dispo, home oxygen setup
[2022-09-30] MEDS: AMLODIPINE 10 MG TAB PO SCH (08:46)
[2022-09-30] MEDS: predniSONE 20 MG TAB PO SCH ×2 (08:47→17:21)
[2022-09-30] MEDS: ASPIRIN 81 MG CHEWABLE TABLET PO SCH (08:47)
[2022-09-30] MEDS: SPIRONOLACTONE 25 MG TABLET PO SCH (08:47)
[2022-09-30] MEDS: levoFLOXacin 500 MG TAB PO SCH (08:47)
[2022-09-30] MEDS: guaiFENesin 100 MG/5 ML UCUP PO SCH ×3 (08:47→21:14)
[2022-09-30] MEDS: ENOXAPARIN 40 MG/0.4 ML SQ SCH (08:48)
[2022-09-30] MEDS: LEVOTHYROXINE SOD 0.1 MG TAB PO SCH (21:14)
[2022-09-30] MEDS: SERTRALINE HCL 100 MG TAB PO SCH (21:15)
[2022-09-30] MEDS: MELATONIN 5 MG TABLET PO SCH (21:16)
[2022-10-01] MEDS: ALBUTEROL 2.5 MG/3 ML NEB SOL NEB SCH ×2 (01:40→08:00)
[2022-10-01] MEDS: IPRATROPIUM BROM 0.5MG/2.5ML NEB SCH ×2 (01:40→08:00)
[2022-10-01 03:32] VITALS: O2SAT 97
[2022-10-01 07:08] LABS: Potassium 4.6 mEq/L (3.5-5.1)
[2022-10-01 08:28] VITALS: BP 134/73; TEMP 98.1
[2022-10-01] MEDS: SPIRONOLACTONE 25 MG TABLET PO SCH (09:00)
[2022-10-01] MEDS: levoFLOXacin 500 MG TAB PO SCH (09:00)
[2022-10-01] MEDS: predniSONE 20 MG TAB PO SCH (09:00)
[2022-10-01] MEDS: ENOXAPARIN 40 MG/0.4 ML SQ SCH (09:00)
[2022-10-01] MEDS: ASPIRIN 81 MG CHEWABLE TABLET PO SCH (09:01)
[2022-10-01] MEDS: guaiFENesin 100 MG/5 ML UCUP PO SCH (09:01)
[2022-10-01] MEDS: AMLODIPINE 10 MG TAB PO SCH (09:01)
[2022-10-01] MEDS: HYDROCODONE/APAP 5/325 MG TAB PO PRN (09:03)
--- NOTE | 2022-10-01 10:19 | P.DS ---
Admission Date: 09/27/22 Discharge Date: 10/01/22 Disposition: DC HOME/HOME HEALTH CARE Discharge Condition: GOOD Reason for Admission: Shortness of breath Consultations: Pulmonology - Dr. Blake Brief History of Present Illness: 72yo F, PMH: COPD, hypertension, depression, hypothyroidism, GERD, DM 2 Patient presents with complaint of shortness of breath that has been ongoing for the past 3 days. Patient reported that he ran out of her inhaler 2 days ago. Patient reported associated signs and symptoms of cough, sore throat, headache, dizziness, fever, chills and wheezing. Patient denies any other signs and symptoms. Symptoms are aggravated or relieved by nothing. Patient is a poor historian and unable to provide accurate history. Patient reported that she was seen at a facility where her O2 sat was noted to be 83% on room air and was sent to the ER for further management. Hospital Course: Problem List: Acute hypoxemic respiratory failure secondary to acute on chronic COPD exacerbation Pneumonia, suspected Microcytic anemia CKD 3B Hypertension Hyperlipidemia Hypothyroidism GERD Depression Obesity Patient presented with shortness of breath. Chest xray indicated "Small patchy airspace opacities concern for developing pneumonia". CT chest revealed a "Consolidative 3 centimeter peripheral left upper lobe opacity." She improved after treatment with antibiotics, steroids, and breathing treatments. She will need a follow up CT chest in ~1-3 months to exclude underlying suspicious nodules. She had improvement of her symptoms, ambulating, oxygen set up, and tolerating diet on day of discharge. She will need to follow up with Dr. Blake and PCP to have repeat CT chest and any further inhalers/nebulizers ordered. New Prescriptions: Levofloxacin Prednisone Albuterol inhaler Follow up: PCP 3-5 days Pulmonology in ~2 weeks Physical Exam: GEN: Alert, oriented, NAD HEENT: Normal conjunctiva, sclera anicteric CV: Regular rate and rhythm, trace b/l pedal edema Pulm: non labored respirations on 2L NC at rest, minimal wheeze ABD: Soft, nontender, nondistended Neuro: Normal speech, normal affect Vital Signs/Physical Exam: Temp Pulse Resp BP Pulse Ox 98.1 F 77 18 134/73 94 10/01/22 08:00 10/01/22 09:01 10/01/22 09:03 10/01/22 09:01 10/01/22 09:03 Laboratory Data at Discharge: WBC 9.70 thou/uL (4.3-10.9) 09/30/22 02:35 Hgb 9.9 g/dL (12.0-15.0) L 09/30/22 02:35 Hct 30.4 % (36.0-45.0) L 09/30/22 02:35 Plt Count 240 thou/uL (152-406) 09/30/22 02:35 PT 10.9 SECONDS (9.5-12.5) 09/27/22 13:39 INR 0.99 09/27/22 13:39 Sodium 136 mEq/L (136-145) 10/01/22 06:40 Potassium 4.6 mEq/L (3.5-5.1) 10/01/22 06:40 BUN 32 mg/dL (7-18) H 10/01/22 06:40 Creatinine 1.48 mg/dL (0.55-1.02) H 10/01/22 06:40 Glucose 111 mg/dL (74-106) H 10/01/22 06:40 Phosphorus 2.0 mg/dL (2.5-4.9) L 09/28/22 03:00 Phosphorus 2.1 mg/dL (2.5-4.9) L 09/28/22 03:00 Magnesium 2.1 mg/dL (1.6-2.4) 09/30/22 02:35 Total Bilirubin 0.2 mg/dL (0.2-1.0) 09/28/22 03:00 AST 18 U/L (15-37) 09/28/22 03:00 ALT 24 U/L (13-56) 09/28/22 03:00 Alkaline Phosphatase 175 U/L (45-117) H 09/28/22 03:00 Home Medications: Amlodipine Besylate/Benazepril [Amlodipine-Benazepril 10-40 mg] 1 each PO DAILY 05/10/22 Atorvastatin Calcium 40 mg PO DAILY 05/10/22 Esomeprazole Mag Trihydrate [Nexium] 40 mg PO DAILY 05/10/22 Hydrocodone Bit/Acetaminophen [Hydrocodon-Acetaminoph 7.5-325] 1 tab PO TID PRN 05/10/22 Levothyroxine Sodium 100 mcg PO BEDTIME 05/10/22 Pioglitazone HCl [Actos] 15 mg PO DAILY 05/10/22 Spironolactone 25 mg PO DAILY 05/10/22 Albuterol Sulfate [Albuterol Sulfate Hfa] 2 puff IH Q6H PRN 30 Days #1 inh 10/01/22 levoFLOXacin [Levaquin*] 500 mg PO DAILY 7 Days #7 tab 10/01/22 predniSONE [Prednisone*] 20 mg PO BIDL 4 Days #8 tab 10/01/22 New Medications: Albuterol Sulfate [Albuterol Sulfate Hfa] 2 puff IH Q6H PRN 30 Days #1 inh PRN Reason: Shortness Of Breath levoFLOXacin [Levaquin*] 500 mg PO DAILY 7 Days #7 tab predniSONE [Prednisone*] 20 mg PO BIDL 4 Days #8 tab Physician Discharge Instructions: Patient presented with shortness of breath. Chest xray indicated "Small patchy airspace opacities concern for developing pneumonia". CT chest revealed a "Cons olidative 3 centimeter peripheral left upper lobe opacity." She improved after treatment with antibiotics, steroids, and breathing treatments. She will need a follow up CT chest in ~1-3 months to exclude underlying suspicious nodules. She had improvement of her symptoms, ambulating, oxygen set up, and tolerating diet on day of discharge. She will need to follow up with Dr. Blake and PCP to have repeat CT chest and any further inhalers/nebulizers ordered. New Prescriptions: Levofloxacin Prednisone Albuterol inhaler Follow up: PCP 3-5 days Pulmonology in ~2 weeks Time spent managing pt's care (in minutes): 45
== END 2022-10-01 14:36 | disposition home health service (06) | DRG 193 ==
LOC: ER 12:24 → 2ND 15:00
PROVIDERS: ADMIT Hospitalist; ATTEND Hospitalist
DX: J18.9 Pneumonia, unspecified organism (principal); J96.01 Acute respiratory failure with hypoxia; J44.1 Chronic obstructive pulmonary disease with (acute) exacerbation; J44.0 Chronic obstructive pulmonary disease with (acute) lower respiratory infection; E03.9 Hypothyroidism, unspecified; F32.A Depression, unspecified; N18.32 Chronic kidney disease, stage 3b; E78.5 Hyperlipidemia, unspecified; D50.9 Iron deficiency anemia, unspecified; K21.9 Gastro-esophageal reflux disease without esophagitis; E66.09 Other obesity due to excess calories; F03.90 Unspecified dementia, unspecified severity, without behavioral disturbance, psychotic disturbance, mood disturbance, and anxiety; Z68.35 Body mass index [BMI] 35.0-35.9, adult; Z90.49 Acquired absence of other specified parts of digestive tract; Z79.52 Long term (current) use of systemic steroids; Z79.890 Hormone replacement therapy; Z79.899 Other long term (current) drug therapy; Z90.710 Acquired absence of both cervix and uterus; Z87.891 Personal history of nicotine dependence; Z20.822 Contact with and (suspected) exposure to COVID-19
CPT/HCPCS: 36415; 71045; 71250; 80048; 80053; 80076; 82805; 82947; 83036; 83605; 83735; 83880; 84100; 84439; 84443; 84484; 85025; 85610; 87040; 87635; 87804; 93005; 94640; 96374; 96375; 99285; J0696; J1650; J2930; J3475; J7030; J7040; J7050; J7512; J7613; J7644

== ENCOUNTER 2022-10-13 14:35 | Emergency (ER) | payer OTHER ==
--- OUTSIDE RECORDS SUMMARY | 2022-10-13 14:39 | XMS REPORT | Continuity of Care Document ---
:1950 Author Organization [facility] t Address [address] [place] [address] [place] [id number] Care Team Providers Name Role Phone PCP, [...] the features features original. 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 Allergies, Adverse Reactions, Alerts Allergy Allergy Status Severity Reaction(s) Onset Inactive Treating Comm ents Source Name Type Date Date Clinician NO KNOWN Drug Active Univers ALLERGIE Class ity of [facility] [place] [facility] Social History Social Habit Start Date Stop Date Quantity Comments Source History of tobacco Cigarette Smoker University of use [place] [facility] History SDOH Social Unive rsity of Connections [facility] Med ical Together Branch History SDOH Social Unive rsity of Connections [facility] Medical Branch History SDOH Social Unive rsity of Connections [place] [facility] Membership [facility] History SDOH Social Unive rsity of Connections [place] [facility] Meetings Branch History SDOH Social Unive rsity of Connections [facility] [place] Tobacco use and 2022-06-30 2022-06-30 Smokeless Universit y of exposure 00:00:00 00:00:00 tobacco non-user [place] [facility] dical Branch History SDOH 2022-06-30 2022-06-30 1 [...] 1 Univers ity of Scarcity 00:00:00 00:00:00 [place] [facility] History SDOH 2022-06-30 2022-06-30 2 University o f Transport Med 00:00:00 00:00:00 [place] [facility] al [facility] History SDOH 2022-06-30 2022-06-30 2 University o f Transport Non-Med 00:00:00 00:00:00 [facility] edical Branch Tobacco Comment 2022-06-30 2022-06-30 Quit 45 years Univer sity of 00:00:00 00:00:00 ago [facility] Exposure to 2022-06-19 2022-06-29 Not sure [facility] SARS-CoV-2 (event) 00:00:00 18:20:00 [facility] Sex Ass[birth year] At [birth year] Universit y of 00:00:00 00:00:00 [facility] Smoking Status Start Date Stop Date Source Ex-smoker 2022-06-30 00:00:00 2022-06-30 00:00:00 [facility] Medications Ordered Filled Start Stop Current Ordering Indication Dosage Frequency Signature Comments Components Source Medication Medication Date Date Medication? Clinician (SIG) Name Name cholecalcif 2022- No [id number] 1000U Take 1 Univers soraya, 2- 03-30 tablet by ity of vitamin D3, 00:00: 04:59 mouth in [place] 25 mcg 00 :00 the Medical (1,000 morning Branch unit) for 30 tablet days. zinc 2022- No [id number] 50mg Take 1 Univer s sulfate 50 2-27 03-30 capsule by it y of mg zinc 00:00: 04:59 mouth in [place] (220 mg) 00 :00 the Medical capsule morning Branch for 30 days. cholecalcif 2022- No [id number] 1000U Take 1 Univers soraya, 2-27 03-30 tablet by ity of vitamin D3, 00:00: 04:59 mouth [place] 25 mcg 00 :00 the Medical (1,000 morning Branch unit) for 30 tablet days. zinc 2022- No [id number] 50mg Take 1 Univer s sulfate 50 2-27 03-30 capsule by it y of mg zinc 00:00: 04:59 mouth in [place] (220 mg) 00 :00 the Medical capsule morning Branch for 30 days. ondansetron 2022-0 Yes 4mg Take 4 mg U nivers (ZOFRAN) 4 2-26 by mouth ity o f mg tablet 16:44: in the [place] [address] morning Medical and 4 mg Branch in [...] mouth ity of 40 mg 16:44: at [place] tablet bedtime. Medical Branch amLODIPine- 2022-0 Yes 1{capsu Take 1 U nivers benazepriL 2-26 le} capsule by ity of 10-40 mg 16:44: mouth in [place] per capsule 51 the Medical morning. Branch SERTraline 0 Yes 100mg Take 100 Un erma 100 mg 2-26 mg by ity of tablet 16:44: mouth in [place] [address] the Medical morning. Branch Levothyroxi 0 Yes Take by Uni vers ne 100 mcg 2-26 mouth ity of capsule 16:44: daily. [place] [address] Medical Branch spironolact 2022-0 Yes 25mg Take 25 mg Univers one 2-26 by mouth ity of (ALDACTONE) 16:44: in the [facility] 25 mg morning. Medical tablet Branch ondansetron 2022-0 Yes 4mg Take 4 mg U nivers (ZOFRAN) 4 2-26 by mouth ity o f mg tablet 16:44: in the [place] [address] morning Medical and 4 mg Branch in [...] ity of 10-40 mg 16:44: mouth in [place] per capsule 51 the Medical morning. Branch SERTraline Yes 100mg Take 100 Un erma 100 mg 2-26 mg by ity of tablet 16:44: mouth in [place] 51 the Medical morning. Branch Levothyroxi Yes Take by Uni vers ne 100 mcg 2-26 mouth ity of capsule 16:44: daily. [place] [address] Medical Branch spironolact 0 Yes 25mg Take [...] 150-100 mg times Branch tablet daily. ascorbic 2022- No [id number] 500mg Take 1 U nivers acid, 2-31 07- tablet by ity of vitamin C, 00:00: 04:59 mouth [place] 500 mg 00 :00 the Medical tablet morning Branch and 1 tablet in the evening. Do all this for 30 days. ascorbic 2022- No [id number] 500mg Take 1 U nivers acid, 2-31 07-29 tablet by ity of vitamin C, 00:00: 04:59 mouth [place] 500 mg 00 :00 the Medical tablet morning Branch and 1 tablet in the evening. Do all this for 30 days. levoFLOXaci 2022-0 2022- No [id number] 750mg Take 1 Univers n 750 mg 07-03 tablet by ity o f tablet 00:00: 05:59 mouth [place] 00 :00 every 48 Medical ([facility]) hours for 3 days. levoFLOXaci 2022-0 2022- No [id number] 750mg Take 1 Univers n 750 mg 07-03 tablet by ity o f tablet 00:00: 05:59 mouth [place] 00 :00 every 48 Medical ([facility]) hours for 3 days. alum-mag Yes 30mL 30 mL, Univers hydroxide-s 2- Oral, ity of imeth 01:23: Q6HPRN, [place] (MAALOX 14 Starting Medical PLUS / on [...] zinc Yes 50mg 50 mg, Univers sulfate -23 Oral, ity of (ORAZINC) 15:00: DAILY, [place] capsule 50 00 First dose Med ical mg (after Branch last modificati on) on Bijal 06/30/22 at 0900, Until Discontinu ed, Routine cholecalcif Yes 1000U 1,000 Univ ers soraya 2-23 Units, ity of (vitamin [...] Until Discontinu ed, 1 mL levoFLOXaci 2022- No 750mg 750 mg, IV Univers n in [...] 00 First dose Medi karen 20-100 on [facility] mcg/actuati 06/30/22 at on inhaler 0800, [...] of 1,000 mg in 06:30: 06:55 Piggyback, [place] NaCl 0.9% 00 :00 ONCE, 1 Medical [...] 3-28 QHS ity of 00:00: [place] 00 Medical Branch MIRTAZAPINE Yes Take 1 and Univers 30 MG ORAL 3-28 1/2 tab ity of TAB 00:00: QHS PO [place] [facility] Branch PAROXETINE Yes 1 Tab Oral U nivers HCL 20 MG 3-28 DAILY ity of ORAL TAB 00:00: [place] [facility] [place] RAMELTEON 8 Yes 1 Tab Oral Univers MG ORAL TAB 3-28 QHS ity of 00:00: [place] [facility] [place] MIRTAZAPINE Yes Take 1 and Univers 30 MG ORAL 3-28 1/2 tab ity of TAB 00:00: QHS PO [place] [address] Medical [place] PAROXETINE Yes 1 Tab Oral U nivers HCL 20 MG 3-28 DAILY ity of ORAL TAB 00:00: [address] Immunizations Ordered Filled Immunization Date Status Comments [facility] e Immunization Name Name SARS-COV-2 COVID-19 2020-09-28 Completed Unive rsity of MICHELLE/J&J VACCINE 00:00:00 [facility] SARS-COV-2 COVID-19 2020-09-28 Completed Unive rsity of MICHELLE/J&J VACCINE 00:00:00 [facility] Vital Signs Vital Name Observation Time Observation Value Comments Source Systolic blood 2022-07-03 21:31:00 136 mm[Hg] Univer sity of pressure [facility] Diastolic blood 2022-07-03 21:31:00 71 mm[Hg] Unive rsity of pressure [facility] Heart rate 2022-07-03 21:31:00 97 /min [facility] Respiratory rate 2022-07-03 21:31:00 18 /min [facility] Oxygen saturation in 2022-07-03 21:31:00 94 /min [facility] Arterial blood by [place] [facility] Pulse oximetry [place] Body temperature 2022-07-03 17:19:00 36.22 [facility] BMI 2022-07-03 10:06:00 39.04 kg/m2 [facility] Body weight 2022-07-03 10:06:00 99.973 kg [facility] Body height 2022-06-30 07:26:00 160 cm [facility] Procedures Procedure Date / Time Performing Clinician Source Performed BASIC METABOLIC PANEL 2022-07-03 12:48:00 Delgado Batista [facility] (NA, K, CL, CO2, GLUCOSE, Medica l Branch BUN, CREATININE, CA) CBC WITH DIFF 2022-07-03 12:48:00 Delgado Batista [facility] BASIC METABOLIC PANEL 2022-07-02 12:01:00 [facility] ([facility], K, CL, CO2, GLUCOSE, Medica l Branch BUN, CREATININE, CA) CBC WITH DIFF 2022-07-02 12:01:00 Delgado Batista [facility] XR CHEST 1 VW 2022-07-01 17:20:[address] [facility] VENOUS BLOOD 2022-07-01 16:33:00 Delgado Batista [facility] BASIC METABOLIC PANEL 2022-07-01 08:35:00 [facility] (NA, K, CL, CO2, GLUCOSE, Medica l Branch BUN, CREATININE, CA) CBC WITH DIFF 2022-07-01 08:35:00 [facility] URINE CULTURE 2022-06-30 20:11:00 Delgado Batista [facility] BASIC METABOLIC PANEL 2022-06-30 15:14:00 [facility] (NA, K, CL, CO2, GLUCOSE, Medica l Branch BUN, CREATININE, CA) CBC WITH DIFF 2022-06-30 15:14:00 [facility] COVID-19 (ID NOW RAPID 2022-06-30 10:11:00 [facility] TESTING) Medical Branch LAB ONLY COVID 2022-06-30 10:11:00 [facility] INTERPRETATION [facility] CT ABDOMEN PELVIS WO 2022-06-30 05:17:12 Derik Mohamud [facility] CONTRAST [facility] URINE DRUG (IMMUNOASSAY) 2022-06-30 04:22:00 Derik Mohamud [facility] DRUG Medical [facility] SCREEN URINALYSIS 2022-06-30 04:22:00 Derik Mohamud [facility] MAGNESIUM 2022-06-30 03:49:00 Derik Mohamud [facility] COMP. METABOLIC PANEL 2022-06-30 03:49:00 Derik Mohamud [facility] ([id number]) Medical Branch LIPASE 2022-06-30 03:19:00 Derik Mohamud [facility] CBC WITH DIFF 2022-06-30 03:19:00 Derik Mohamud [facility] XR ABDOMEN 2 VW 2022-06-30 01:04:24 Derik Mohamud [facility] NOTICE OF PRIVACY 2022-06-30 00:00:04 Doctor Unasswyatt, [facility] PRACTICES [facility] CONSENT/REFUSAL FOR 2022-06-29 23:59:37 Doctor Unachary, [facility] DIAGNOSIS AND TREATMENT [facility] Encounters Start End Encounter Admission Attending Care Care Encounter Source Date/Time Date/Time Type Type Clinicians Facility Department ID 2022-09-27 2022-09-27 Outpatient [facility] [id number] [place] 10:38:05 10:38:05 [id number] [place] 2022-09-16 2022-09-16 Outpatient [facility] [place] 16:10:40 16:10:40 [id number] F [place] 2022-07-21 2022-07-21 Outpatient [facility] [id number] [place] 08:35:57 08:35:57 [id number] [facility] 2022-07-05 2022-07-05 Transition DOMENICA Roland [id number] Univers 00:00:00 00:00:00 of Care Jackie VICENTE [id number] i ty of JOSE [place] [id number] [id number] [id number] Branch 2022-06-29 2022-07-03 [facility] Derik Mohamud [facility] [id number] [facility] 18:36:00 16:40:00 Encounter Chadwick Delgado [id number] ity [facility] [id number] [facility] [id number] [facility] 081 Branch 2022-06-29 2022-07-03 Inpatient Adrianna DELGADO [facility] [id number] Univers 18:36:00 16:40:00 CHADWICK wright [facility] 2022-06-16 2022-06-16 Outpatient SFA [facility]FA [id number] [place] 16:08:21 16:08:21 [id number] F Joesph Results Test Description Test Time Test Comments Results Result Comments Source CULTURE, URINE 2022-07-23 SPECIMEN NUMBER: 16:00:26 [id number] CULTURE, URINE SPECIMEN NUMBER: [id number] SPECIMEN COMMENT: URINE SOURCE: URINE REPORT STATUS: FINAL FINAL REPORT: 07/23/2022 50-100,000 CFU/ML UROGENITAL CONNOR PRESENT NO COMMON PATHOGENS [facility] has important pathology staff changes effective 07/06/2022. New pathology staff will provide uninterrupted, excellent patient care and clinical consultation. See URL: [email or web address]. UNLESS OTHERWISE INDICATED, ALL TESTING PERFORMED AT [facility] [address] [place] [address] DEPOSITION REPORTER: JONN MILTON M.D. CLIA NUMBER [id number] [place] [id number] BASIC METABOLIC PANEL (NA, K, CL, CO2, GLUCOSE, BUN, 2022-06 12:38:20 CREATININE, CA) Test Item Value Reference Range Interpretation Comme nts NA (test code = 1016839292) 136 mmol/L 135-145 K (test code = 4048879602) 4.1 mmol/L 3.5-5.0 CL (test code = 1358804766) 108 mmol/L 98-108 CO2 TOTAL (test code = 2762421457) 21 mmol/L 23-31 L AGAP (test code = 2109783182) 7 2-16 BUN (test code = 5416603275) 13 mg/dL 7-23 GLUCOSE (test code = 4474729529) 87 mg/dL 70-110 CREATININE (test code = 1.50 mg/dL 0.50-1.04 H 2099286554) CALCIUM (test code = 0916216894) 7.5 mg/dL 8.6-10.6 L eGFR (test code = 2853914988) 34.2 mL/min/1.73m2 JOE (test code = JOE) [...] tests). Lab Interpretation (test code = Abnormal 38945-3) [facility] WITH [id number] 12:30:18 Test Item Value Reference Range Interpretation Comments WBC (test code = 7.01 See_Comment [Automated 7617-2) message] The sy stem which generated this result transmitted reference range : 4.30 - 11.10 10*3/?L. The reference range was not used to interpret this result as normal/abnormal . RBC (test code = 3.28 See_Comment L [Automated 643-3) message] The sy stem which generated this [...] (test code = 52.1 fL 39.0-49.9 H 62205-6) RDW-CV (test code = 16.1 % 12.0-15.5 H 788-0) PLT (test code = 259 See_Comment [Automated 777-3) message] The sy stem which generated this result transmitted reference range : 166 - 358 10*3/ ?L. The reference r arben was not used to interpret this result as normal/abnormal . MPV (test code = 11.6 fL 9.5-12.9 50307-9) NRBC/100 WBC (test 0.0 See_Comment [Automat ed code = 4733195258) message] The system which generated this result transmitted reference range : 0.0 - 10.0 /100 WBCs. The refer ence range was not u sed to interpret th is result as normal/abnormal . NRBC x10^3 (test code See_Comment [Auto mated = 7793666913) message] The s ystem which generated this result transmitted reference range : 10*3/?L. The reference range was not used to interpret this result as normal/abnormal . GRAN MAT (NEUT) % 65.2 % (test code = 770-8) IMM GRAN % (test code 1.40 % = 9005412666) LYMPH % (test code = 22.7 % 736-9) MONO % (test code = 8.0 % 5905-5) EOS % (test code = 2.4 % 713-8) BASO % (test code = 0.3 % 706-2) GRAN MAT x10^3(ANC) 4.57 10*3/uL 1.88-7.09 (test code = 5985157642) IMM GRAN x10^3 (test 0.10 10*3/uL 0.00-0.06 H code = 2132457830) LYMPH x10^3 (test code 1.59 10*3/uL 1.32-3.29 = 731-0) MONO x10^3 (test code 0.56 10*3/uL 0.33-0.92 = 742-7) EOS x10^3 (test code = 0.17 10*3/uL 0.03-0.39 711-2) BASO x10^3 (test code 0.01-0.07 = 704-7) Lab Interpretation Abnormal (test code = 56316-2) [facility] Test Item Value Reference Range Interpretation Comments MAGNESIUM (test code = 1257636960) 1.1 mg/dL 1.7-2.4 L Lab Interpretation (test code = Abnormal 46527-8) [facility] (42100)2022-06-30 04:33:29 Test Item Value Reference Range Interpretation Comments NA (test code = 134 mmol/L 135-145 L 5016280716) K (test code = 3.1 mmol/L 3.5-5.0 L 1735285150) CL (test code = 91 mmol/L 98-108 L 4150892899) CO2 TOTAL (test code = 27 mmol/L 23-31 1310365193) AGAP (test code = 16 2-16 2519327553) BUN (test code = 16 mg/dL 7-23 1796110756) GLUCOSE (test code = 89 mg/dL 70-110 5542586022) CREATININE (test code = 2.12 mg/dL 0.50-1.04 H 9865492148) TOTAL BILI (test code = 0.7 mg/dL 0.1-1.5 0070465391) CALCIUM (test code = 8.1 mg/dL 8.6-10.6 L 0806716882) T PROTEIN (test code = 7.1 g/dL 6.3-8.2 5564569250) ALBUMIN (test code = 3.7 g/dL 3.5-5.0 5654275123) ALK PHOS (test code = 141 U/L 34-122 H 2151758821) ALTv (test code = 13 U/L 5-35 1742-6) AST(SGOT) (test code = 19 U/L 13-40 0876839265) eGFR (test code = 23.0 mL/min/1.73m2 9513746204) JOE (test code = JOE) Association of [...] tests). Lab Interpretation Abnormal (test code = 99048-3) [facility] WITH [id number] 03:27:33 Test Item Value Reference Range Interpretation Comments WBC (test code = 12.52 See_Comment H [Automated 6975-2) message] The system which generated this result transmit camron reference range : 4.30 - 11.10 10*3/?L. The reference range was not used to interpret this result as normal/abnormal . RBC (test code = 4.07 See_Comment [Automated 524-9) message] The system which generated this result [...] RDW-SD (test code = 48.4 fL 39.0-49.9 08281-9) RDW-CV (test code = 15.6 % 12.0-15.5 H 788-0) PLT (test code = 309 See_Comment [Automated 777-3) message] The system which generated this result transmit camron reference range : 166 - 358 10*3/ ?L. The reference range was not u sed to interpret th is result as normal/abnormal . MPV (test code = 11.5 fL 9.5-12.9 12741-9) NRBC/100 WBC (test 0.0 See_Comment [Automat ed code = 3362233381) message] The system which generated this result transmit camron reference range : 0.0 - 10.0 /100 WBCs. The reference range was not used to interpret this result as normal/abnormal . NRBC x10^3 (test code See_Comment [Auto mated = 4681752563) message] The system which generated this result transmit camron reference range : 10*3/?L. The reference range was not used to interpret this result as normal/abnormal . GRAN MAT (NEUT) % 81.3 % (test code = 770-8) IMM GRAN % (test code 0.50 % = 4039753974) LYMPH % (test code = 9.8 % 736-9) MONO % (test code = 7.9 % 5905-5) EOS % (test code = 0.3 % 713-8) BASO % (test code = 0.2 % 706-2) GRAN MAT x10^3(ANC) 10.17 10*3/uL 1.88-7.09 H (test code = 4818809224) IMM GRAN x10^3 (test 0.06 10*3/uL 0.00-0.06 code = 7266022332) LYMPH x10^3 (test code 1.23 10*3/uL 1.32-3.29 L = 731-0) MONO x10^3 (test code 0.99 10*3/uL 0.33-0.92 H = 742-7) EOS x10^3 (test code = 0.04 10*3/uL 0.03-0.39 711-2) BASO x10^3 (test code 0.03 10*3/uL 0.01-0.07 = 704-7) Lab Interpretation Abnormal (test code = 46364-4) [facility]"
--- NOTE | 2022-10-13 14:52 | ER ---
Nurse's Notes [facility] Name: Amna Lundberg Age: 72 yrs Sex: Female : 1950 Arrival Date: 10/13/2022 Time: 14:35 Bed 14 Private MD: Diagnosis: Folliculitis Presentation: 10/13 14:43 Chief complaint: EMS states: LUMPS ON NECK AND FACE x3 DAYS. Coronavirus screen: At [facility] this time, the client does not indicate any symptoms associated with coronavirus-19. Ebola Screen: No symptoms or risks identified at this time. Initial Sepsis Screen: Does the patient meet any 2 criteria? No. Patient's initial sepsis screen is negative. Does the patient have a suspected source of infection? No. Patient's initial sepsis screen is negative. Risk Assessment: Do you want to hurt yourself or someone else? Patient reports no desire to harm self or others. Onset of symptoms is unknown. 14:43 Method Of Arrival: EMS: [place] [address] 14:43 Acuity: DOMENICO 4 eh3 Triage Assessment: 14:45 Bite description: bite sustained to face by an unknown animal, animal information: [facility] vaccination(s) is not applicable. General: Appears in no apparent distress. uncomfortable, obese, Behavior is cooperative, appropriate for age, anxious. Pain: Complains of pain in face. EENT: No deficits noted. Neuro: No deficits noted. Cardiovascular: No deficits noted. Respiratory: No deficits noted. GI: No signs and/or symptoms were reported involving the gastrointestinal system. : No signs and/or symptoms were reported regarding the genitourinary system. Derm: INDURATED MASSES NOTED TO R BROW AND R NECK. Musculoskeletal: No deficits noted. Historical: - Allergies: 14:45 No Known Allergies; eh3 - PMHx: 14:45 Chronic obstructive lung disease; Chronic pain; depressive disorder; Hypertensive eh3 disorder; - PSHx: 14:45 Total abdominal hysterectomy; eh3 - Immunization history:: Adult Immunizations up to date. - Social history:: Smoking status: Patient reports the use of cigarette tobacco products, unknown amount. Screenin:47 [facility] ED Fall Risk Assessment (Adult) History of falling in the last 3 months, 3 including since admission No falls in past 3 months (0 pts). Abuse screen: Denies threats or abuse. Denies injuries from another. Nutritional screening: No deficits noted. Tuberculosis screening: No symptoms or risk factors identified. Assessment: 14:47 General: SEE TRIAGE NOTE. Derm: Skin is intact, Skin is pink, warm \T\ dry. eh3 15:14 Reassessment: Patient appears in no apparent distress at this time. Patient and/or db family updated on plan of care and expected duration. Pain level reassessed. Patient is alert, oriented x 3, equal unlabored respirations, skin warm/dry/pink. on home O2. red bites. 15:42 Reassessment: patient's family states it will take approximately 1 hour to get patient. db 17:04 Reassessment: family arrived for patient. patient ambulatory to waiting room. db Vital Signs: 14:43 BP 130 / 66; Pulse 78; Resp 22; Temp 98; Pulse Ox 94% on R/A; eh3 15:19 BP 132 / 68; Pulse 77; Resp 18; Pulse Ox 100% on 2 lpm NC; db 17:00 BP 154 / 96; Pulse 88; Resp 76; Pulse Ox 100% on 2 lpm NC; db ED Course: 14:43 Patient arrived in ED. eh3 14:43 Héctor Snyder DO is Attending Physician. ms3 14:45 Triage completed. eh3 14:47 Arm band placed on. eh3 14:47 Patient has correct armband on for positive identification. Bed in low position. Call eh3 light in reach. Side rails up X2. 14:47 No provider procedures requiring assistance completed. Patient did not have IV access eh3 during this emergency room visit. 15:14 Anne Marie Adkins, RN is Primary Nurse. db Administered Medications: No medications were administered Medication: 14:47 VIS not applicable for this client. eh3 Outcome: 14:52 Discharge ordered by . ms3 17:00 Discharged to home ambulatory, with family. db 17:00 Condition: stable 17:00 Discharge instructions given to patient, Instructed on discharge instructions, follow up and referral plans. Prescriptions given X 1. 17:06 Patient left the ED. db Signatures: Héctor Snyder DO DO ms3 Martha Gallagher RN RN eh3 Anne Marie Adkins, LINDY RN db
--- NOTE | 2022-10-13 14:52 | EDPHYS ---
Physician Documentation [facility] Name: Amna Lundberg Age: 72 yrs Sex: Female : 1950 Arrival Date: 10/13/2022 Time: 14:35 Bed 14 Private MD: ED Physician Héctor Snyder HPI: 10/13 16:09 This 72 yrs old Female presents to ER via EMS with complaints of Insect Bite. ms3 16:09 72-year-old female with past medical history of COPD, chronic pain, depression presents ms3 for lumps on the right side of her head and neck. Patient states she is having moderate pain in these areas. Patient denies alleviating or inciting factors. Historical: - Allergies: 14:45 No Known Allergies; eh3 - PMHx: 14:45 Chronic obstructive lung disease; Chronic pain; depressive disorder; Hypertensive eh3 disorder; - PSHx: 14:45 Total abdominal hysterectomy; eh3 - Immunization history:: Adult Immunizations up to date. - Social history:: Smoking status: Patient reports the use of cigarette tobacco products, unknown amount. ROS: 16:09 Constitutional: Negative for fever, and chills. Cardiovascular: Negative for chest ms3 pain, and palpitations. Respiratory: Negative for shortness of breath, cough, wheezing, and pleuritic chest pain, Abdomen/GI: Negative for abdominal pain, nausea, vomiting, diarrhea, and constipation, MS/Extremity: Negative for injury and deformity, Skin: Negative for injury, rash, and discoloration. 16:09 Neck: Positive for Mobile nodule with mild erythema. 16:09 All other systems are negative. Exam: 16:09 Constitutional: This is a well developed, well nourished patient who is awake, alert, ms3 and in no acute distress. Neck: Trachea midline, no cervical lymphadenopathy. Supple, full range of motion without nuchal rigidity, or vertebral point tenderness. No Meningismus. Chest/axilla: Normal chest wall appearance and motion. Nontender with no deformity. Cardiovascular: Regular rate and rhythm with a normal S1 and S2. No gallops, murmurs, or rubs. Normal PMI, no JVD. No pulse deficits. Respiratory: Lungs have equal breath sounds bilaterally, clear to auscultation and percussion. No rales, rhonchi or wheezes noted. No increased work of breathing, no retractions or nasal flaring. Abdomen/GI: Soft, non-tender, with normal bowel sounds. No distension or tympany. No guarding or rebound. No evidence of tenderness throughout. Skin: Warm, dry with normal turgor. Normal color with no rashes, no lesions, and no evidence of cellulitis. MS/ Extremity: Pulses equal, no cyanosis. Neurovascular intact. Full, normal range of motion. 16:09 Head/face: Nodule on right neck and right side of head. Mild tenderness to palpation. Vital Signs: 14:43 BP 130 / 66; Pulse 78; Resp 22; Temp 98; Pulse Ox 94% on R/A; eh3 15:19 BP 132 / 68; Pulse 77; Resp 18; Pulse Ox 100% on 2 lpm NC; db 17:00 BP 154 / 96; Pulse 88; Resp 76; Pulse Ox 100% on 2 lpm NC; db MDM: 14:43 Patient medically screened. ms3 16:09 Differential Diagnosis Folliculitis vs Insect bites vs LAD. Data reviewed: vital signs, ms3 nurses notes, and as a result, I will discharge patient. Historians other than the Patient: EMS: [facility]. Counseling: I had a detailed discussion with the patient and/or guardian regarding: the historical points, exam findings, and any diagnostic results supporting the discharge/admit diagnosis, the need for outpatient follow up, to return to the emergency department if symptoms worsen or persist or if there are any questions or concerns that arise at home. Special discussion: I discussed with the patient/guardian in detail that at this point there is no indication for admission to the hospital. It is understood, however, that if the symptoms persist or worsen the patient needs to return immediately for re-evaluation. ED course: Discussed physical exam findings with patient. Patient follow-up with her primary care physician in 2 to 3 days. Patient understands and agrees with plan. All questions were answered. Return precautions discussed include worsening symptoms, or any other concerns.. Administered Medications: No medications were administered Disposition Summary: 10/13/22 14:52 Discharge Ordered Location: Home ms3 Condition: Stable ms3 Diagnosis - Folliculitis ms3 Followup: ms3 - With: Private Physician - When: 2 - 3 days - Reason: Recheck today's complaints Discharge Instructions: - Discharge Summary Sheet ms3 - Folliculitis ms3 Forms: - Medication Reconciliation Form ms3 - Thank You Letter ms3 - Antibiotic Education ms3 - Prescription Opioid Use ms3 Prescriptions: - Doxycycline Hyclate 100 mg Oral Tablet - take 1 tablet by ORAL route every 12 hours; 20 tablet; Refills: 0, Product ms3 Selection Permitted Signatures: Héctor Snyder DO DO ms3 Martha Gallagher RN RN eh3
[2022-10-13 18:04] VITALS: TEMP 98
[2022-10-13 18:06] VITALS: O2SAT 100
[2022-10-13 18:07] VITALS: BP 154/96
== END 2022-10-13 17:06 | disposition home or self-care (01) ==
LOC: ER 14:35
DX: L73.9 Follicular disorder, unspecified (principal); I10 Essential (primary) hypertension
CPT/HCPCS: 99283

== ENCOUNTER 2023-02-15 17:08 | Emergency (ER) | payer OTHER ==
--- OUTSIDE RECORDS SUMMARY | 2023-02-15 17:11 | XMS REPORT | Continuity of Care Document ---
:1950 Author Organization [facility] t Address [address] [place] [address] [place] [id number] Care Team Providers Name Role Phone PCP, [...] the features features original. 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 Allergies, Adverse Reactions, Alerts Allergy Allergy Status Severity Reaction(s) Onset Inactive Treating Comm ents Source Name Type Date Date Clinician NO KNOWN Drug Active Univers ALLERGIE Class ity of [facility] [place] [facility] Social History Social Habit Start Date Stop Date Quantity Comments Source History of tobacco Cigarette Smoker University of use [place] [facility] History SDOH Social Unive rsity of Connections [facility] Med ical Together Branch History SDOH Social Unive rsity of Connections [facility] Medical Branch History SDOH Social Unive rsity of Connections [place] [facility] Membership [facility] History SDOH Social Unive rsity of Connections [place] [facility] Meetings Branch History SDOH Social Unive rsity of Connections [facility] Medical Patriot Tobacco use and 2022-06-30 2022-06-30 Smokeless Universit y of exposure 00:00:00 00:00:00 tobacco non-user [place] Ri dical Branch History SDOH 2022-06-30 2022-06-30 1 [...] 1 Univers ity of Scarcity 00:00:00 00:00:00 [place] [facility] History SDOH 2022-06-30 2022-06-30 2 University o f Transport Med 00:00:00 00:00:00 [place] [facility] al [facility] History SDOH 2022-06-30 2022-06-30 2 University o f Transport Non-Med 00:00:00 00:00:00 [facility] edical Branch Tobacco Comment 2022-06-30 2022-06-30 Quit 45 years Univer sity of 00:00:00 00:00:00 ago [facility] [place] Exposure to 2022-06-19 2022-06-29 Not sure [facility] SARS-CoV-2 (event) 00:00:00 18:20:00 [facility] [place] Sex Ass[birth year] At [birth year] Universit y of 00:00:00 00:00:00 [facility] [place] Smoking Status Start Date Stop Date Source Ex-smoker 2022-06-30 00:00:00 2022-06-30 [facility] [place] Medications Ordered Filled Start Stop Current Ordering Indication Dosage Frequency Signature Comments Components Source Medication Medication Date Date Medication? Clinician (SIG) Name Name cholecalcif 2022- No [id number] 1000U Take 1 Univers soraya, 2- 03-30 tablet by ity of vitamin D3, 00:00: 04:59 mouth in [place] 25 mcg 00 :00 the Medical (1,000 morning Branch unit) for 30 tablet days. zinc 2022- No [id number] 50mg Take 1 Univer s sulfate 50 2-27 03-30 capsule by it y of mg zinc 00:00: 04:59 mouth in [place] (220 mg) 00 :00 the Medical capsule morning Branch for 30 days. cholecalcif 2022- No [id number] 1000U Take 1 Univers soraya, 2-27 03-30 tablet by ity of vitamin D3, 00:00: 04:59 mouth [place] 25 mcg 00 :00 the Medical (1,000 morning Branch unit) for 30 tablet days. zinc 2022- No [id number] 50mg Take 1 Univer s sulfate 50 2-27 03-30 capsule by it y of mg zinc 00:00: 04:59 mouth in [place] (220 mg) 00 :00 the Medical capsule morning Branch for 30 days. ondansetron 2022-0 Yes 4mg Take 4 mg U nivers (ZOFRAN) 4 2-26 by mouth ity o f mg tablet 16:44: in the [place] [address] morning Medical and 4 mg Branch in [...] mouth ity of 40 mg 16:44: at [place] tablet bedtime. Medical Branch amLODIPine- 2022-0 Yes 1{capsu Take 1 U nivers benazepriL 2-26 le} capsule by ity of 10-40 mg 16:44: mouth in [place] per capsule 51 the Medical morning. Branch SERTraline 0 Yes 100mg Take 100 Un erma 100 mg 2-26 mg by ity of tablet 16:44: mouth in [place] [address] the Medical morning. Branch Levothyroxi 0 Yes Take by Uni vers ne 100 mcg 2-26 mouth ity of capsule 16:44: daily. [place] [address] Medical Branch spironolact 2022-0 Yes 25mg Take 25 mg Univers one 2-26 by mouth ity of (ALDACTONE) 16:44: in the [facility] 25 mg morning. Medical tablet Branch ondansetron 2022-0 Yes 4mg Take 4 mg U nivers (ZOFRAN) 4 2-26 by mouth ity o f mg tablet 16:44: in the [place] [address] morning Medical and 4 mg Branch in [...] ity of 10-40 mg 16:44: mouth in [place] per capsule 51 the Medical morning. Branch SERTraline Yes 100mg Take 100 Un erma 100 mg 2-26 mg by ity of tablet 16:44: mouth in [place] 51 the Medical morning. Branch Levothyroxi Yes Take by Uni vers ne 100 mcg 2-26 mouth ity of capsule 16:44: daily. [place] [address] Medical Branch spironolact 0 Yes 25mg Take [...] times Branch tablet daily. ascorbic 2022- No [id number] 500mg Take 1 U nivers acid, 2-31 07- tablet by ity of vitamin C, 00:00: 04:59 mouth [place] 500 mg 00 :00 the Medical tablet morning Branch and 1 tablet in the evening. Do all this for 30 days. ascorbic 2022- No [id number] 500mg Take 1 U nivers acid, 2-31 07-29 tablet by ity of vitamin C, 00:00: 04:59 mouth [place] 500 mg 00 :00 the Medical tablet morning Branch and 1 tablet in the evening. Do all this for 30 days. levoFLOXaci 2022-0 2022- No [id number] 750mg Take 1 Univers n 750 mg 07-03 tablet by ity o f tablet 00:00: 05:59 mouth [place] 00 :00 every 48 Medical ([facility]) hours for 3 days. levoFLOXaci 2022-0 2022- No [id number] 750mg Take 1 Univers n 750 mg 07-03 tablet by ity o f tablet 00:00: 05:59 mouth [place] 00 :00 every 48 Medical ([facility]) hours for 3 days. alum-mag Yes 30mL 30 mL, Univers hydroxide-s 2- Oral, ity of imeth 01:23: Q6HPRN, [place] (MAALOX 14 Starting Medical PLUS / on [...] 00 First dose Medi karen 20-100 on [facility] Branch mcg/actuati 06/30/22 at on inhaler [...] of 1,000 mg in 06:30: 06:55 Piggyback, [place] NaCl 0.9% 00 :00 ONCE, 1 Medical [...] tab ity of TAB 00:00: QHS PO [address] PAROXETINE Yes 1 Tab Oral U nivers HCL 20 MG 3-28 DAILY ity of ORAL TAB 00:00: [place] [facility] RAMELTEON 8 Yes 1 Tab Oral Univers MG ORAL TAB 3-28 QHS ity of 00:00: [place] [facility] MIRTAZAPINE Yes Take 1 and Univers 30 MG ORAL 3-28 1/2 tab ity of TAB 00:00: QHS PO [address] PAROXETINE Yes 1 Tab Oral U nivers HCL 20 MG 3-28 DAILY ity of ORAL TAB 00:00: [address] Vital Signs Vital Name Observation Time Observation Value Comments Source Systolic blood 2022-07-03 21:31:00 136 mm[Hg] Univer sity of pressure [facility] [place] Diastolic blood 2022-07-03 21:31:00 71 mm[facility]Hg] [facility] 2022-07-03 21:31:00 97 /min [facility] Respiratory rate 2022-07-03 21:31:00 18 /min [facility] Oxygen saturation in 2022-07-03 21:31:00 94 /min [facility] Arterial blood by [facility] Pulse oximetry [place] Body temperature 2022-07-03 17:19:00 36.22 [place] [facility] Body weight 2022-07-03 10:06:00 99.973 kg [facility] BMI 2022-07-03 10:06:00 39.04 kg/m2 [facility] Body height 2022-06-30 07:26:00 160 cm [facility] Procedures Procedure Date / Time Performing Clinician Source Performed BASIC METABOLIC PANEL 2022-07-03 12:48:00 Delgado Batista [facility] (NA, K, CL, CO2, GLUCOSE, Medica l Branch BUN, CREATININE, CA) CBC WITH DIFF 2022-07-03 12:48:00 Delgado Batista [facility] BASIC METABOLIC PANEL 2022-07-02 12:01:00 Delgado Batista [facility] (NA, K, CL, CO2, GLUCOSE, Medica l Branch BUN, CREATININE, CA) CBC WITH DIFF 2022-07-02 12:01:00 Delgado Batista [facility] XR CHEST 1 VW 2022-07-01 17:20:52 Delgado Batista [facility] ACUTE CARE VENOUS BLOOD 2022-07-01 16:33:00 Delgado Batista [facility] GAS [facility] BASIC METABOLIC PANEL 2022-07-01 08:35:00 [facility] (NA, K, CL, CO2, GLUCOSE, Medica l Branch BUN, CREATININE, CA) CBC WITH DIFF 2022-07-01 08:35[facility] 2022-06-30 20:11:00 Delgado Batista [facility] BASIC METABOLIC PANEL 2022-06-30 15:14:00 [facility] (NA, K, CL, CO2, GLUCOSE, Medica l Branch BUN, CREATININE, CA) CBC WITH DIFF 2022-06-30 15:14:00 [facility] COVID-19 (ID NOW RAPID 2022-06-30 10:11[facility] LAB ONLY COVID 2022-06-30 10:11:00 Santiago [facility] INTERPRETATION [facility] CT ABDOMEN PELVIS WO 2022-06-30 05:17:12 Derik Mohamud [facility] CONTRAST [facility] URINE DRUG (IMMUNOASSAY) 2022-06-30 04:22:00 Derik Mohamud [facility] SCREEN URINALYSIS 2022-06-30 04:22:00 Derik Mohamud [facility] MAGNESIUM 2022-06-30 03:49:00 Derik Mohamud [facility] COMP. METABOLIC PANEL 2022-06-30 03:49:00 Derik Mohamud [facility] ([id number]) Medical Branch LIPASE 2022-06-30 03:19:00 Derik Mohamud [facility] CBC WITH DIFF 2022-06-30 03:19:00 Derik Mohamud [facility] XR ABDOMEN 2 VW 2022-06-30 01:04:24 Derik Mohamud [facility] NOTICE OF PRIVACY 2022-06-30 00:00:04 Doctor Unassigned, [facility] PRACTICES [place] [facility] CONSENT/REFUSAL FOR 2022-06-29 23:59:37 Doctor Unassigned, [facility] DIAGNOSIS AND TREATMENT [place] [facility] Encounters Start End Encounter Admission Attending Care Care Encounter Source Date/Time Date/Time Type Type Clinicians Facility Department ID 2023-02-14 2023-02-14 Outpatient SFA [facility] [place] 16:50:56 16:50:56 [id number] [facility] 2023-01-18 2023-01-18 Outpatient SFA [place] 17:10:28 17:10:28 [id number] [facility] 2022-11-28 2022-11-28 Outpatient SFA [facility] [place] 10:21:37 10:21:37 [id number] [facility] 2022-11-10 2022-11-10 Outpatient SFA [place] 15:32:33 15:32:33 [id number] [facility] 2022-09-27 2022-09-27 Outpatient SFA [place] 10:38:05 10:38:05 [id number] [facility] 2022-09-16 2022-09-16 Outpatient SFA [place] 16:10:40 16:10:[id number] [place] [address] 2022-07-21 2022-07-21 Outpatient SFA [place] 08:35:57 08:35:57 [id number] [facility] 2022-07-05 2022-07-05 Transition DOMENICA Roland [id number] [facility] 00:00:00 00:00:00 of Care Jackie VICENTE [id number] i ty of [place] [id number] [id number] Branch 2022-06-29 2022-07-03 Hospital Derik Mohamud [facility] [id number] Univers 18:36:00 16:40:00 Encounter Chadwick Delgado [id number] [facility] 4.2.7.2.686 [facility] [id number] [facility] 081 Branch 2022-06-29 2022-07-03 Inpatient X BALA [facility] CRISSY [id number] Univers 18:36:00 16:40:00 CHADWICK ity [facility] 2022-06-16 2022-06-16 Outpatient SFA SFA [id number] [place] 16:08:21 16:08:21 [id number] F Joesph Results Test Description Test Time Test Comments Results Result Comments Source VITAMIN D, 25 OH 2022-11-11 06:17:38 Test Item Value Reference Range Interpretation Comme nts VITAMIN D, 25 OH (test 11 NG/ML SEE BELOW L E FFECTIVE 05/16/2022, PLEASE NOTE code = 4958) NEW METHODOLOGY IS ELECTROCHEMILUM INESCENCE BINDING ASSAY. NOTE: 25-HYDROX YVITAMIN D ASSAY INCLUDES 25-HYDROXYVITAM IN D2 AND D3. INTERPRETIVE RA NGES PEDIATRIC (<17 YEARS) . . . . . . . . . . . NG/ML 20-100ADULT: IN SUFFICIENT . . . . . . . . . . . . . . N G/ML <20 SUBOPTIMAL . . . . . . . . . . . . . . . NG/ML 20-29 OPTIMAL . . . . . . . . . . . . . . . . . NG/ML 30-100 UNLESS OTHERWISE INDICATED, ALL TESTING PERFORMED AT CLINICAL PATHOL [employer] [address] [place] [address] GALLERY MANAGER: GELY MILTON M.D. CLIA NUMBER [id number] [facility] [place]. [id number] TSH, THIRD [id number] 06:16:39 Test Item Value Reference Range Interpretation Comments TSH, THIRD GENERATION (test 12.000 UIU/ML 0.400-4.100 H code = 2821) LIPID [id number] 05:36:52 Test Item Value Reference Range Interpretation Comments CHOLESTEROL (test 289 MG/DL <200 H code = 2210) TRIGLYCERIDES (test 255 MG/DL <150 H code = 2232) HDL CHOLESTEROL (test 47 MG/DL >39 code = 2220) CALC LDL CHOL (test 196 MG/DL <100 H NOTE: C ALCULATED LDL code = 2237) IS BASED ON RICO-PAINTING METHOD WHICHINCLUDES ADJUSTABLE TRIGLYCERIDE:VL DL CHOLESTEROL RAT IO.THIS FACTOR VARIES B Y MEASURED TRIGLY CERIDE AND NON-HDLCHOL ESTEROL CONCENTRATIONS WITH INCREASED CALCU LATED LDL SEENIN HIGH ER TRIGLYCERIDE OR LOWER NON-HDL SPECIME NS. FOR MOREINFORMATION , SEE CLIENT ANNOUNCE MENT AT [email or web address] RISK RATIO LDL/HDL 4.17 RATIO <3.22 H (test code = 2238) COMPREHENSIVE METABOLIC [id number] 05:36:52 Test Item Value Reference Range Interpretation Comments GLUCOSE (test code = 114 MG/DL 70-99 H 2216) BUN (test code = 19 MG/DL 8-23 2207) CREATININE (test 1.39 MG/DL 0.60-1.30 H code = 2214) eGFR (2020 CKD-EPI) 41 ML/MIN/1.73 >60 L (test code = 12414) CALC BUN/CREAT (test 14 RATIO 6-28 code = 2235) SODIUM (test code = 140 MEQ/L 681-707 8021) POTASSIUM (test code 4.1 MEQ/L 3.5-5.4 = 2227) CHLORIDE (test code 100 MEQ/L 95-107 = 2214) CARBON DIOXIDE (test 27 MEQ/L 19-31 code = 2206) CALCIUM (test code = 9.6 MG/DL 8.5-10.5 2208) PROTEIN, TOTAL (test 6.8 G/DL 6.1-8.3 code = 2229) ALBUMIN (test code = 4.1 G/DL 3.5-5.2 2200) CALC GLOBULIN (test 2.7 G/DL 1.9-3.7 code = 2240) CALC A/G RATIO (test 1.5 RATIO 1.0-2.6 code = 2234) BILIRUBIN, TOTAL <0.2 MG/DL See_Comment [Automated message] (test code = 2207) The syste m which generated this result transmit camron reference range : <=1.2. The refe rence range was not u sed to interpret th is result as normal/abnormal . ALKALINE PHOSPHATASE 171 U/L 40-142 H (test code = 2204) AST (test code = 16 U/L 9-40 2217) ALT (test code = 13 U/L 5-40 2218) HEMOGLOBIN [id number] 03:19:58 Test Item Value Reference Range Interpretation Comments HEMOGLOBIN A1c (test 6.1 % 4.2-5.6 H AMERIC AN DIABETES code = 90175) ASSOCIATION IDELINES FOR HGB A1C: PREDIABETES/INC REASED RISK . . . . . . . 5.7 -6.4% DIAGNOSIS OF DI ABETES . . . . . . . . . >=6 .5% WITH CONFIRMATION OR APPROPRIATE SYMPTOMS NOTE: ASSAY MAY BE AFFECTED BY HEMOGLOBINOPATH IES (SICKLE CELL ANEMIA, S- C DISEASE, OTHERS) OR NELLI FICIALLY LOWERED BY DECR EASED RED CELL SURVIVAL ( HEMOLYTIC ANEMIAS, BLOOD LOSS, ETC.). CONSIDER ALTERN ATE TESTING OR LABORATORY C ONSULTATION. CBC W/AUTO DIFF WITH [id number] 02:26:20 Test Item Value Reference Range Interpretation Comments WBC (test code = 11.8 K/UL 3.5-11.0 H 1001) RBC (test code = 3.74 M/UL 3.80-5.40 L 1002) HEMOGLOBIN (test code 9.8 G/DL 11.5-15.5 L = 1003) HEMATOCRIT (test code 31.2 % 34.0-45.0 L = 1004) MCV (test code = 83.4 fL 80.0-99.0 1005) MCH (test code = 26.2 PG 25.0-33.0 1006) MCHC (test code = 31.4 G/DL 31.0-36.0 1007) RDW (test code = 14.8 % 11.5-15.0 1038) NEUTROPHILS (test 79.3 % code = 1008) LYMPHOCYTES (test 10.8 % code = 1010) MONOCYTES (test code 8.2 % = 1011) EOSINOPHILS (test 1.0 % code = 1012) BASOPHILS (test code 0.2 % = 1013) IMMATURE GRANULOCYTES 0.5 % (test code = 1036) NUCLEATED RBCS (test 0.0 /100 WBC'S See_Comment [Aut omated code = 1065) message] The sy stem which generated this result transmitted reference range : 0.0. The refere nce range was not u sed to interpret th is result as normal/abnormal . PLATELET COUNT (test 335 K/UL 130-400 code = 1015) ABSOLUTE NEUTROPHILS 9.39 K/UL 1.50-7.50 H (test code = 1066) ABSOLUTE LYMPHOCYTES 1.28 K/UL 1.00-4.00 (test code = 1067) ABSOLUTE MONOCYTES 0.97 K/UL 0.20-1.00 (test code = 1068) ABSOLUTE EOSINOPHILS 0.12 K/UL 0.00-0.50 (test code = 1040) ABSOLUTE BASOPHILS 0.02 K/UL 0.00-0.20 (test code = 1069) ABS IMMATURE 0.06 K/UL 0.00-0.10 GRANULOCYTES (test code = 1020) ABS NUCLEATED RBCS 0.00 K/UL 0.00-0.11 (test code = 55160) CULTURE, [id number] 16:00:26SPECIMEN NUMBER: [id number] CULTURE, URINE SPECIMEN NUMBER: [id number] SPECIMEN COMMENT: URINE SOURCE:URINE REPORT STATUS: FINAL FINAL REPORT: 07/23/2022 50-100,000 CFU/ML UROGENITAL CONNOR PRESENT NO COM MON PATHOGENS [facility] has important pathology staff changes effective 07/06/2022. New pathology staff will provide uninterrupted, excellent patient care and clinical consultation. See URL: [email or web address]. UNLESS OTHERWISE INDICATED, ALL TESTING PERFORMED AT CLINICAL PATHOLOGY [facility] [address] [place] [address] GALLERY MANAGER: JONN MILTON M.D. CLIA NUMBER [id number] [place]. [id number] METABOLIC PANEL (NA, K, CL, CO2, GLUCOSE, BUN, CREATININE, CA)2022-07-02 12:38:20 Test Item Value Reference Range Interpretation Comments NA (test code = 136 mmol/L 135-145 7122632964) K (test code = 4.1 mmol/L 3.5-5.0 9800993552) CL (test code = 108 mmol/L 98-108 9025042678) CO2 TOTAL (test code = 21 mmol/L 23-31 L 5514621695) AGAP (test code = 7 2-16 0769062892) BUN (test code = 13 mg/dL 7-23 5489368553) GLUCOSE (test code = 87 mg/dL 70-110 3478602712) CREATININE (test code = 1.50 mg/dL 0.50-1.04 H 1298066565) CALCIUM (test code = 7.5 mg/dL 8.6-10.6 L 2334257513) eGFR (test code = 34.2 mL/min/1.73m2 5305666129) JOE (test code = JOE) Association of [...] tests). Lab Interpretation Abnormal (test code = 61650-1) [facility] WITH [id number] 12:30:18 Test Item Value Reference Range Interpretation Comments WBC (test code = 7.01 See_Comment [Automated 6690-2) message] The sy stem which generated this result transmitted reference range : 4.30 - 11.10 10*3/?L. The reference range was not used to interpret this result as normal/abnormal . RBC (test code = 3.28 See_Comment L [Automated 789-8) message] The sy stem which generated this [...] (test code = 52.1 fL 39.0-49.9 H 77337-5) RDW-CV (test code = 16.1 % 12.0-15.5 H 788-0) PLT (test code = 259 See_Comment [Automated 777-3) message] The sy stem which generated this result transmitted reference range : 166 - 358 10*3/ ?L. The reference r arben was not used to interpret this result as normal/abnormal . MPV (test code = 11.6 fL 9.5-12.9 46445-6) NRBC/100 WBC (test 0.0 See_Comment [Automat ed code = 9264583185) message] The system which generated this result transmitted reference range : 0.0 - 10.0 /100 WBCs. The refer ence range was not u sed to interpret th is result as normal/abnormal . NRBC x10^3 (test code See_Comment [Auto mated = 7297573156) message] The s ystem which generated this result transmitted reference range : 10*3/?L. The reference range was not used to interpret this result as normal/abnormal . GRAN MAT (NEUT) % 65.2 % (test code = 770-8) IMM GRAN % (test code 1.40 % = 9473689451) LYMPH % (test code = 22.7 % 736-9) MONO % (test code = 8.0 % 5905-5) EOS % (test code = 2.4 % 713-8) BASO % (test code = 0.3 % 706-2) GRAN MAT x10^3(ANC) 4.57 10*3/uL 1.88-7.09 (test code = 7948203506) IMM GRAN x10^3 (test 0.10 10*3/uL 0.00-0.06 H code = 7412719026) LYMPH x10^3 (test code 1.59 10*3/uL 1.32-3.29 = 731-0) MONO x10^3 (test code 0.56 10*3/uL 0.33-0.92 = 742-7) EOS x10^3 (test code = 0.17 10*3/uL 0.03-0.39 711-2) BASO x10^3 (test code 0.01-0.07 = 704-7) Lab Interpretation Abnormal (test code = 26454-1) [id number] 21[facility]22:03 Test Item Value Reference Range Interpretation Comments MAGNESIUM (test code = 5453951700) 1.1 mg/dL 1.7-2.4 L Lab Interpretation (test code = Abnormal 74304-4) [facility] (58865)2022-06-30 04:33:29 Test Item Value Reference Range Interpretation Comments NA (test code = 134 mmol/L 135-145 L 4731324317) K (test code = 3.1 mmol/L 3.5-5.0 L 8314332178) CL (test code = 91 mmol/L 98-108 L 6067517552) CO2 TOTAL (test code = 27 mmol/L 23-31 1527214386) AGAP (test code = 16 2-16 4853632560) BUN (test code = 16 mg/dL 7-23 7430765423) GLUCOSE (test code = 89 mg/dL 70-110 9955302673) CREATININE (test code = 2.12 mg/dL 0.50-1.04 H 5541570543) TOTAL BILI (test code = 0.7 mg/dL 0.1-1.6 7132106326) CALCIUM (test code = 8.1 mg/dL 8.6-10.6 L 7044698750) T PROTEIN (test code = 7.1 g/dL 6.3-8.2 5952253812) ALBUMIN (test code = 3.7 g/dL 3.5-5.0 4359428522) ALK PHOS (test code = 141 U/L 34-122 H 4925755922) ALTv (test code = 13 U/L 5-35 1742-6) AST(SGOT) (test code = 19 U/L 13-40 2950133331) eGFR (test code = 23.0 mL/min/1.73m2 8570935528) JOE (test code = JOE) Association of [...] tests). Lab Interpretation Abnormal (test code = 74751-9) [facility] WITH [id number] 03:27:33 Test Item Value Reference Range Interpretation Comments WBC (test code = 12.52 See_Comment H [Automated 6690-2) message] The system which generated this result transmit camron reference range : 4.30 - 11.10 10*3/?L. The reference range was not used to interpret this result as normal/abnormal . RBC (test code = 4.07 See_Comment [Automated 789-8) message] The system which generated this result [...] RDW-SD (test code = 48.4 fL 39.0-49.9 68137-7) RDW-CV (test code = 15.6 % 12.0-15.5 H 788-0) PLT (test code = 309 See_Comment [Automated 777-3) message] The system which generated this result transmit camron reference range : 166 - 358 10*3/ ?L. The reference range was not u sed to interpret th is result as normal/abnormal . MPV (test code = 11.5 fL 9.5-12.9 66599-9) NRBC/100 WBC (test 0.0 See_Comment [Automat ed code = 3602019799) message] The system which generated this result transmit camron reference range : 0.0 - 10.0 /100 WBCs. The reference range was not used to interpret this result as normal/abnormal . NRBC x10^3 (test code See_Comment [Auto mated = 7410152599) message] The system which generated this result transmit camron reference range : 10*3/?L. The reference range was not used to interpret this result as normal/abnormal . GRAN MAT (NEUT) % 81.3 % (test code = 770-8) IMM GRAN % (test code 0.50 % = 8775310423) LYMPH % (test code = 9.8 % 736-9) MONO % (test code = 7.9 % 5905-5) EOS % (test code = 0.3 % 713-8) BASO % (test code = 0.2 % 706-2) GRAN MAT x10^3(ANC) 10.17 10*3/uL 1.88-7.09 H (test code = 4657763945) IMM GRAN x10^3 (test 0.06 10*3/uL 0.00-0.06 code = 4590419138) LYMPH x10^3 (test code 1.23 10*3/uL 1.32-3.29 L = 731-0) MONO x10^3 (test code 0.99 10*3/uL 0.33-0.92 H = 742-7) EOS x10^3 (test code = 0.04 10*3/uL 0.03-0.39 711-2) BASO x10^3 (test code 0.03 10*3/uL 0.01-0.07 = 704-7) Lab Interpretation Abnormal (test code = 05233-8) [facility]"
--- NOTE | 2023-02-15 18:28 | RAD REPORT ---
EXAM DESCRIPTION: RAD - Hand Right 3 View - 02/15/2023 6:04 pm CLINICAL HISTORY: PAIN COMPARISON: Forearm Right dated 02/15/2023 FINDINGS: Prominent diffuse osteopenia. Mild multi joint arthritic changes are noted. No acute fract ure or dislocation.
--- NOTE | 2023-02-15 18:29 | RAD REPORT ---
EXAM DESCRIPTION: RAD - Forearm Right - 02/15/2023 6:04 pm CLINICAL HISTORY: PAIN COMPARISON: No comparisons FINDINGS: Fazu-ho-qodkahod osteoarthritis radiocarpal joint. Small olecranon spur. No acute fracture or dislocation.
[2023-02-15 19:25] LABS: Absolute Lymphocytes (CBC) 1.4 K/uL (0.7-4.9); Hematocrit 30.4 % (36.0-45.0); Lymphocytes % 13.4 % (15.3-44.8); MCV 83.9 fL (80-100); MPV 8.7 fL (7.6-11.3); Platelets 165 thou/uL (152-406); RBC Red Blood Cell Count 3.62 M/uL (3.86-4.86)
[2023-02-15 19:48] LABS: Albumin 3.1 g/dL (3.4-5.0); Bilirubin Total 0.2 mg/dL (0.2-1.0); Potassium 4.4 mEq/L (3.5-5.1); Protein, Total 7.2 g/dL (6.4-8.2)
--- NOTE | 2023-02-15 20:21 | RAD REPORT ---
EXAM DESCRIPTION: CTAbdomen Pelvis W Contrast - 02/15/2023 8:14 pm CLINICAL HISTORY: Abdominal pain. ABD PAIN COMPARISON: Abdomen Pelvis W Contrast dated 06/17/2022 TECHNIQUE: Biphasic CT imaging of the abdomen and pelvis was performed with 100 ml non-ionic IV cont rast. All CT scans are performed using dose optimization technique as appropriate and may include automated exposure control or mA/KV adjustment according to patient size. FINDINGS: The lung bases are clear.Cholecystectomy clips. The liver, spleen, pancreas, adrenal glands and kidneys are within normal limits. No bowel obstruction, free air, free fluid or abscess. Sigmoid diverticulosis is present without dive rticulitis. The appendix is not identified as a discrete structure, however, no secondary findings of appendicitis are identified. No evidence of significant lymphadenopathy. Mild lumbosacral degenerative changes. IMPRESSION: No acute intra-abdominal or pelvic finding. Prominent sigmoid diverticulosis coli without diverticulitis.
[2023-02-15 20:40] LABS: Specific Gravity > 1.030 (1.005-1.030); Urine Bacteria <20 /HPF (<20); Urine Bilirubin NEGATIVE (Negative); Urine Blood Trace (Negative); Urine Clarity Extremely Turbid (Clear); Urine Color Light-Yellow (Yellow); Urine Glucose NEGATIVE (Negative); Urine Mucus Slight /HPF (None Seen); Urine Protein TRACE (Negative); Urine RBC 21-50 /HPF (None Seen); Urine Urobilinogen Normal (Normal)
--- NOTE | 2023-02-15 20:46 | EDPHYS ---
Physician Documentation [facility] Name: Amna Lundberg Age: 72 yrs Sex: Female : 1950 Arrival Date: 02/15/2023 Time: 17:08 Bed 19 Private MD: ED Physician Quinn Petersen HPI: 02/15 17:48 This 72 yrs old Female presents to ER via Wheelchair with complaints of Hand Injury. kb 17:49 The patient or guardian reports decreased range of motion, injury, pain, swelling, kb tenderness. The complaints affect the right wrist diffusely. Context: The problem was sustained at home, resulted from a fall. Onset: The symptoms/episode began/occurred 2 day(s) ago. Modifying factors: The symptoms are alleviated by nothing, the symptoms are aggravated by movement. Associated signs and symptoms: The patient has no apparent associated signs or symptoms. The patient has not experienced similar symptoms in the past. The patient has not recently seen a physician. Historical: - Allergies: 17:13 No Known Allergies; ap3 - Home Meds: 17:14 amlodipine oral [Active]; atorvastatin oral [Active]; Ferrous Sulfate Oral [Active]; ap3 levothyroxine oral [Active]; metformin Oral [Active]; sertraline oral [Active]; - PMHx: 17:13 Chronic obstructive lung disease; Chronic pain; depressive disorder; Hypertensive ap3 disorder; - PSHx: 17:13 Total abdominal hysterectomy; ap3 - Immunization history:: Client reports receiving the 2nd dose of the Covid vaccine. - Social history:: Smoking status: Patient denies any tobacco usage or history of. ROS: 17:47 Constitutional: Negative for fever, chills, and weight loss, kb 17:47 MS/extremity: Positive for pain, of the right hand and right wrist, 17:47 All other systems are negative, Exam: 17:47 Constitutional: This is a well developed, well nourished patient who is awake, alert, kb and in no acute distress. Head/Face: Normocephalic, atraumatic. ENT: Moist Mucous membranes Cardiovascular: Regular rate Respiratory: Respirations even and unlabored. No increased work of breathing. Talking in full sentences Skin: Warm, dry with normal turgor. Normal color. Neuro: Awake and alert, GCS 15, oriented to person, place, time, and situation. Moves all extremities. Normal gait. 17:47 Musculoskeletal/extremity: Extremities: grossly normal except: noted in the right hand and right wrist: decreased ROM, pain, swelling, tenderness, ROM: limited active range of motion due to pain, Circulation is intact in all extremities. Sensation intact. 18:53 Abdomen/GI: Inspection: abdomen appears normal, Bowel sounds: normal, Palpation: soft, kb in all quadrants, moderate abdominal tenderness, in the left upper quadrant and left lower quadrant, 18:54 Abdomen/GI: Rectal exam: rectal tone normal, Stool: brown, the exam is chaperoned by an medical technical writer, Vital Signs: 17:11 Resp 19; Temp 98.2; Weight 88.45 kg; Pain 10/10; ap3 17:18 BP 121 / 61; Pulse 83; Pulse Ox 97% on R/A; ap3 19:17 Pulse 72; Resp 18; Pulse Ox 98% ; nj1 21:19 BP 113 / 70; Pulse 79; Resp 18; Pulse Ox 97% on R/A; kl 17:11 Pain Scale: Adult ap3 MDM: 17:14 Patient medically screened. kb 17:48 Differential diagnosis: dislocation, closed fracture, contusion, sprain. Data reviewed: vital signs, nurses notes. 18:53 ED course: Pt now reports abd pain that started yesterday. states she just went to the restroom and there was blood in her urine and stool. . 20:43 Counseling: I had a detailed discussion with the patient and/or guardian regarding the historical points, exam findings, and any diagnostic results supporting the discharge/admit diagnosis, lab results, radiology results, the need for outpatient follow up, a family practitioner, a shafting worker, to return to the emergency department if symptoms worsen or persist or if there are any questions or concerns that arise at home. 02/15 18:28 Order name: CBC with Diff; Complete Time: 19:34 kb 02/15 18:28 Order name: CMP; Complete Time: 19:54 kb 02/15 18:28 Order name: Lipase; Complete Time: 19:54 kb 02/15 18:28 Order name: Urinalysis w/ reflexes; Complete Time: 20:43 kb 02/15 17:13 Order name: Forearm Right XRAY; Complete Time: 18:32 kb 02/15 17:13 Order name: Hand Right 3 View XRAY; Complete Time: 18:32 kb 02/15 18:28 Order name: CT Abd/Pelvis - IV Contrast Only; Complete Time: 20:25 kb 02/15 18:08 Order name: Sugar Tong Forearm Splint; Complete Time: 19:16 kb 02/15 18:08 Order name: Sling; Complete Time: 19:16 kb 02/15 18:28 Order name: IV Saline Lock; Complete Time: 19:56 kb 02/15 18:28 Order name: Labs collected and sent; Complete Time: 19:16 kb Administered Medications: No medications were administered Disposition Summary: 02/15/23 20:45 Discharge Ordered Notes: Location: Home kb Condition: Stable kb Diagnosis - Other specified sprain of right wrist kb - Abdominal pain, Generalized kb Followup: kb - With: Emergency Department - When: As needed - Reason: Worsening of condition Followup: kb - With: Private Physician - When: 2 - 3 days - Reason: Recheck today's complaints, Continuance of care, Re-evaluation by your physician Discharge Instructions: - Discharge Summary Sheet kb - Abdominal Pain, Adult, [id number] kb - Wrist Sprain, Adult kb Forms: - Medication Reconciliation Form kb - Thank You Letter kb - Antibiotic Education kb - Prescription Opioid Use kb - Patient Portal Instructions kb - Leadership Thank You Letter kb Signatures: Dispatcher [employer] Suzanne Griffin, NILDA-C FIELD TRAINER-Gracie Mina, RN RN ap3
--- NOTE | 2023-02-15 20:46 | ER ---
Nurse's Notes [facility] Name: Amna Lundberg Age: 72 yrs Sex: Female : 1950 Arrival Date: 02/15/2023 Time: 17:08 Bed 19 Private MD: Diagnosis: Other specified sprain of right wrist;Abdominal pain, Generalized Presentation: 02/15 17:11 Chief complaint: Patient states: she is having right hand/wrist pain for a few days. ap3 patient thinks she might have fallen on it but isn't sure. Coronavirus screen: At this time, the client does not indicate any symptoms associated with coronavirus-19. Ebola Screen: No symptoms or risks identified at this time. Initial Sepsis Screen: Does the patient meet any 2 criteria? No. Patient's initial sepsis screen is negative. Does the patient have a suspected source of infection? No. Patient's initial sepsis screen is negative. Risk Assessment: Do you want to hurt yourself or someone else? Patient reports no desire to harm self or others. Onset of symptoms is unknown. 17:11 Method Of Arrival: Wheelchair ap3 17:11 Acuity: DOMENICO 4 ap3 18:30 Acuity: DOMENICO 3 nj1 Triage Assessment: 17:17 General: Appears in no apparent distress. Behavior is calm, cooperative, appropriate ap3 for age. Pain: Complains of pain in right hand, dorsal aspect of right forearm and right wrist Pain currently is 10 out of 10 on a pain scale. Neuro: Level of Consciousness is awake, alert, obeys commands, Oriented to person, place, time, situation, Appropriate for age. Cardiovascular: Patient's skin is warm and dry. Respiratory: Airway is patent Respiratory effort is even, unlabored, Respiratory pattern is regular, symmetrical. Historical: - Allergies: 17:13 No Known Allergies; ap3 - Home Meds: 17:14 amlodipine oral [Active]; atorvastatin oral [Active]; Ferrous Sulfate Oral [Active]; ap3 levothyroxine oral [Active]; metformin Oral [Active]; sertraline oral [Active]; - PMHx: 17:13 Chronic obstructive lung disease; Chronic pain; depressive disorder; Hypertensive ap3 disorder; - PSHx: 17:13 Total abdominal hysterectomy; ap3 - Immunization history:: Client reports receiving the 2nd dose of the Covid vaccine. - Social history:: Smoking status: Patient denies any tobacco usage or history of. Screenin:17 [facility] ED Fall Risk Assessment (Adult) History of falling in the last 3 months, ap3 including since admission Yes- fall prone (multiple falls) (3 pts) Confusion or Disorientation No (0 pts) Intoxicated or Sedated No (0 pts) Impaired Gait Yes (1 pt) Mobility Assist Device Used Yes (1 pt). Abuse screen: Denies threats or abuse. Nutritional screening: No deficits noted. Tuberculosis screening: No symptoms or risk factors identified. Assessment: 17:22 Reassessment: See triage assessment. nj1 18:30 Reassessment: Patient appears in no apparent distress at this time. Patient and/or nj1 family updated on plan of care and expected duration. Pain level reassessed. Patient is alert, oriented x 3, equal unlabored respirations, skin warm/dry/pink. GI: Reports Abdominal/back pain. 18:30 GI: Reports bloody stool. : Reports Blood in urine. nj1 19:15 Reassessment: Sugar tongue cancelled per nurse practitioner, hanny wrap applied instead nj1 per her instructions. 21:18 Reassessment: Patient appears in no apparent distress at this time. Patient denies pain kl at this time. Patient states feeling better. Vital Signs: 17:11 Resp 19; Temp 98.2; Weight 88.45 kg; Pain 10/10; ap3 17:18 BP 121 / 61; Pulse 83; Pulse Ox 97% on R/A; ap3 19:17 Pulse 72; Resp 18; Pulse Ox 98% ; nj1 21:19 BP 113 / 70; Pulse 79; Resp 18; Pulse Ox 97% on R/A; kl 17:11 Pain Scale: Adult ap3 ED Course: 17:10 Patient arrived in ED. mr 17:10 [facility] Jim[facility]C [facility] kb 17:10 Quinn Petersen MD is Attending Physician. kb 17:13 Triage completed. ap3 17:17 Arm band placed on left wrist. ap3 17:22 Gavi Liriano, LINDY is Primary Nurse. nj1 17:23 Patient has correct armband on for positive identification. Bed in low position. Call nj1 light in reach. 18:06 Forearm Right XRAY In Process Unspecified. EDMS 18:06 Hand Right 3 View XRAY In Process Unspecified. EDMS 18:30 Notified Nurse Practitioner and/or Physician [employer] of Pt complaining of nj1 abdominal/back pain and bloody stool and blood in urine after using restroom. 19:55 Inserted saline lock: 20 gauge in right antecubital area, using aseptic technique. nj1 ,using aseptic technique. Ultrasound guided. Catheter tip well visualized within vasculature during placement. 20:16 CT Abd/Pelvis - IV Contrast Only In Process Unspecified. EDMS 21:19 No provider procedures requiring assistance completed. IV discontinued, intact, kl bleeding controlled, No redness/swelling at site. Pressure dressing applied. Administered Medications: No medications were administered Medication: 21:19 VIS not applicable for this client. kl Outcome: 20:45 Discharge ordered by . ceci 21:19 Discharged to home via wheelchair, with family, kl 21:19 Condition: stable 21:19 Discharge instructions given to patient, Instructed on discharge instructions, follow up and referral plans. Demonstrated understanding of instructions, follow-up care, 21:20 Patient left the ED. kl Signatures: Dispatcher [employer] EDMS Suzanne Jimenez, BAG FILLER MACHINE OPERATOR-C BAG FILLER MACHINE OPERATOR-Ckb Anastasiya Gaona, RN RN Joi Zhong, Reg Reg mr Gracie Shaw RN RN ap3 Gavi Liriano RN RN nj1
[2023-02-15 21:54] VITALS: BP 113/70; O2SAT 97
== END 2023-02-15 21:20 | disposition home or self-care (01) ==
LOC: ER 17:08
PROC: 2W3CX1Z Immobilization of Right Lower Arm using Splint (ICD-10-PCS; principal; 2023-02-15)
DX: S63.591A Other specified sprain of right wrist, initial encounter (principal); R10.84 Generalized abdominal pain; I10 Essential (primary) hypertension; J44.9 Chronic obstructive pulmonary disease, unspecified
CPT/HCPCS: 85025; 81001; 36415; 83690; 80053; 74177; 73130; 73090; 29125; Q9967

== ENCOUNTER 2023-06-01 21:26 | Observation (INO) | payer OTHER ==
--- OUTSIDE RECORDS SUMMARY | 2023-06-01 21:30 | XMS REPORT | Continuity of Care Document ---
Author Name Unknown Address [address] [facility]. [address] [place] [address] [facility] thconnect Address [address] [facility]. [address] [place] [address] Care Team Providers Care Lasting Room Machine Operator Name Role Phone PCP, PATIENT DOES NOT HAVE A Primary Care Physic martymayra Roland RN, Jackie Zelaya Attending Clinician [phone] Derik Mohamud MD Attending Clinician [phone] Chadwick Delgado DO Attending Clinician [phone] Casey Henderson MD Attending Clinician [phone] CHADWICK DELGADO Attending Clinician Unavailable Casey Henderson MD Admitting Clinician [phone] CASEY HENDERSON Admitting Clinician Unavailable Payers Payer Name Policy Type Policy Number Effective Date Expirati on Date Source Problems Condition Name Condition Details Condition Category Status Onset Date Resolution Date Last Treatment Date Treating Clinician Comments Source 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 ICD10 Diagnosis Term Regulatory Affairs Consultant Utility General acute hospital Allergies, Adverse Reactions, Alerts Allergy Name Allergy Type Status Severity Reaction(s) Onset Date Inactive Date Treating Clinician Comments Source NO KNOWN ALLERGIE S Drug Class Active General acute hospital Social History Social Habit Start Date Stop Date Quantity Comments Source History of tobacco use Cigarette Smoker [facility] History SDOH Social Connections Get Together [facility] History SDOH Social Connections Adventism [facility] History SDOH Social Connections Membership [facility] History SDOH Social Connections Meetings [facility] History SDOH Social Connections Living [facility] Tobacco use and exposure 2022-06-30 00:00:00 2022-06-30 00:00:00 Smokeless tobacco non-user [facility] History SDOH Alcohol Frequency 2022-06-30 00:00:00 2022-06-30 00:00:00 1 [facility] History SDOH Alcohol Std Drinks 2022-06-30 00:00:00 2022-06-30 00:00:00 0 [facility] History SDOH Alcohol Binge 2022-06-30 00:00:00 2022-06-30 00:00:00 1 [facility] History SDOH Social Connections Phone 2022-06-30 00:00:00 2022-06-30 00:00:00 5 [facility] History SDOH Physical Activity DPW 2022-06-30 00:00:00 2022-06-30 00:00:00 0 [facility] History SDOH Physical Activity MPS 2022-06-30 00:00:00 2022-06-30 00:00:00 0 [facility] History SDOH Financial 2022-06-30 00:00:00 2022-06-30 00:00:00 5 [facility] History SDOH Food Worry 2022-06-30 00:00:00 2022-06-30 00:00:00 1 [facility] History SDOH Food Scarcity 2022-06-30 00:00:00 2022-06-30 00:00:00 1 [facility] History SDOH Transport Med 2022-06-30 00:00:00 2022-06-30 00:00:00 2 [facility] History SDOH Transport Non-Med 2022-06-30 00:00:00 2022-06-30 00:00:00 2 [facility] Tobacco Comment 2022-06-30 00:00:00 2022-06-30 00:00:00 Quit 45 years ago [facility] Exposure to SARS-CoV-2 (event) 2022-06-19 00:00:00 2022-06-29 18:20:00 Not sure [facility] Sex Ass[birth year] At 1950 00:00:00 1950 00:00:00 [facility] Smoking Status Start Date Stop Date Source Ex-smoker 2022-06-30 00:00:00 2022-06-30 [facility]ations Ordered Medication Name Filled Medication Name Start Date Stop Date Current Medication? Ordering Clinician Indication Dosage Frequency Signature (SIG) Comments Components Source cholecalcif soraya, vitamin D3, 25 mcg (1,000 unit) tablet 07-04 00:00: 00 08-04 04:59 :00 No [id number] 1000U Take 1 tablet by mouth in the morning for 30 days. [facility] acute hospital zinc sulfate 50 mg zinc (220 mg) capsule 07-04 00:00: 00 08-04 04:59 :00 No [id number] 50mg Take 1 capsule by mouth in the morning for 30 days. [facility] acute hospital cholecalcif soraya, vitamin D3, 25 mcg (1,000 unit) tablet 07-04 00:00: 00 08-04 04:59 :00 No [id number] 1000U Take 1 tablet by mouth in the morning for 30 days. [facility] acute hospital zinc sulfate 50 mg zinc (220 mg) capsule 07-04 00:00: 00 08-04 04:59 :00 No [id number] 50mg Take 1 capsule by mouth in the morning for 30 days. [facility] acute hospital ondansetron (ZOFRAN) 4 mg tablet 07-03 16:44: 51 Yes 4mg Take 4 mg by mouth in the morning and 4 mg in the evening. [facility] acute hospital pantoprazol e sodium (PANTOPRAZO LE ORAL) 07-03 16:44: 51 Yes 40mg Take 40 mg by mouth daily. [facility] acute hospital HYDROcodone -acetaminop hen 7.5-325 mg per tablet 07-03 16:44: 51 Yes 1{tbl} Take 1 tablet by mouth every 8 (eight) hours as needed for Pain. [facility] acute hospital esomeprazol e magnesium (NEXIUM ORAL) 07-03 16:44: 51 Yes 40mg Take 40 mg by mouth daily. [facility] acute hospital atorvastati n (LIPITOR) 40 mg tablet 07-03 16:44: 51 Yes 40mg Take 40 mg by mouth at bedtime. [facility] acute hospital amLODIPine- benazepriL 10-40 mg per capsule 07-03 16:44: 51 Yes 1{capsu le} Take 1 capsule by mouth in the morning. [facility] acute hospital SERTraline 100 mg tablet 07-03 16:44: 51 Yes 100mg Take 100 mg by mouth in the morning. [facility] acute hospital Levothyroxi ne 100 mcg capsule 07-03 16:44: 51 Yes Take by mouth daily. [facility] acute hospital spironolact one (ALDACTONE) 25 mg tablet 07-03 16:44: 51 Yes 25mg Take 25 mg by mouth in the morning. [facility] acute hospital ondansetron (ZOFRAN) 4 mg tablet 07-03 16:44: 51 Yes 4mg Take 4 mg by mouth in the morning and 4 mg in the evening. [facility] acute hospital pantoprazol e sodium (PANTOPRAZO LE ORAL) 07-03 16:44: 51 Yes 40mg Take 40 mg by mouth daily. [facility] acute hospital HYDROcodone -acetaminop hen 7.5-325 mg per tablet 07-03 16:44: 51 Yes 1{tbl} Take 1 tablet by mouth every 8 (eight) hours as needed for Pain. [facility] acute hospital esomeprazol e magnesium (NEXIUM ORAL) 07-03 16:44: 51 Yes 40mg Take 40 mg by mouth daily. [facility] acute hospital atorvastati n (LIPITOR) 40 mg tablet 07-03 16:44: 51 Yes 40mg Take 40 mg by mouth at bedtime. [facility] acute hospital amLODIPine- benazepriL 10-40 mg per capsule 07-03 16:44: 51 Yes 1{capsu le} Take 1 capsule by mouth in the morning. [facility] acute hospital SERTraline 100 mg tablet 07-03 16:44: 51 Yes 100mg Take 100 mg by mouth in the morning. [facility] acute hospital Levothyroxi ne 100 mcg capsule 07-03 16:44: 51 Yes Take by mouth daily. [facility] acute hospital spironolact one (ALDACTONE) 25 mg tablet 07-03 16:44: 51 Yes 25mg Take 25 mg by mouth in the morning. [facility] acute hospital nirmatrelvi r-ritonavir (PAXLOVID, EUA,) 150-100 mg tablet 07-03 09:58: 51 07-03 00:00 :00 No 2{tbl} Take 2 tablets by mouth 2 (two) times daily. [facility] acute hospital ascorbic acid, vitamin C, 500 mg tablet 07-03 00:00: 00 08-03 04:59 :00 No [id number] 500mg Take 1 tablet by mouth in the morning and 1 tablet in the evening. Do all this for 30 days. [facility] acute hospital ascorbic acid, vitamin C, 500 mg tablet 07-03 00:00: 00 08-03 04:59 :00 No [id number] 500mg Take 1 tablet by mouth in the morning and 1 tablet in the evening. Do all this for 30 days. [facility] acute hospital levoFLOXaci n 750 mg tablet 07-03 00:00: 00 07-07 05:59 :00 No [id number] 750mg Take 1 tablet by mouth every 48 (forty-eig ht) hours for 3 days. [facility] acute hospital levoFLOXaci n 750 mg tablet 07-03 00:00: 00 07-07 05:59 :00 No [id number] 750mg Take 1 tablet by mouth every 48 (forty-eig ht) hours for 3 days. [facility] acute hospital alum-mag hydroxide-s imeth (MAALOX PLUS / MAG-AL PLUS) 200-200-20 mg/5 mL suspension 30 mL 07-02 01:23: 14 Yes 30mL 30 mL, Oral, Q6HPRN, Starting on Mon07/01/22 at 1923, Until Discontinu ed, Routine, Indigestio n, Heartburn [facility] acute hospital pantoprazol e (PROTONIX) EC tablet 40 mg 06-30 23:45: 00 Yes 40mg 40 mg, Oral, DAILY, First dose on Mon06/30/22 at 1745, Until Discontinu ed, Routine [facility] acute hospital heparin (porcine) injection 5,000 Units 06-30 20:00: 00 Yes 5000U 5,000 Units, Subcutaneo us, Q8H, First dose on Mon06/30/22 at 1400, Until Discontinu ed, Routine [facility] acute hospital zinc sulfate (ORAZINC) capsule 50 mg 06-30 15:00: 00 Yes 50mg 50 mg, Oral, DAILY, First dose (after last modificati on) on Mon06/30/22 at 0900, Until Discontinu ed, Routine [facility] acute hospital cholecalcif soraya (vitamin D3) tablet 1,000 Units 06-30 15:00: 00 Yes 1000U 1,000 Units, Oral, DAILY, First dose on Mon06/30/22 at 0900, Until Discontinu ed, Routine [facility] acute hospital dexamethaso ne sod phos PF injection 6 mg 06-30 15:00: 00 07-01 14:59 :35 No 6mg 6 mg, Slow IV Push, DAILY, First dose on Mon06/30/22 at 0900, Until Discontinu ed, 1 mL [facility] levoFLOXaci n in D5W (LEVAQUIN) 750 mg/150 mL Piggyback 750 mg 06-30 14:45: 00 07-06 14:44 :00 No 750mg 750 mg, IV Piggyback, at 100 mL/hr Administer over 90 Minutes, Q48H ABX, 3 doses, First dose on Mon06/30/22 at 0845, Last dose on Mon07/04/22 at 0845, ISELA
Re ason for Anti-Infec tive: Empiric Therapy for Suspected Infection< br>Empiric Therapy Site: Abdominal< br>Duratio n of therapy: 5 days [facility] acute hospital codeine-gua ifenesin (ROBITUSSIN AC) 10-100 mg/5 mL oral solution 5 mL 06-30 14:00: 58 Yes 5mL 5 mL, Oral, Q4HPRN, Starting on Mon06/30/22 at 0800, Until Discontinu ed, Routine, Cough [facility] acute hospital ascorbic acid (vitamin C) (VITAMIN C) tablet 500 mg 06-30 14:00: 00 Yes 500mg 500 mg, Oral, BID, First dose on Mon06/30/22 at 0800, Until Discontinu ed, Routine [facility] albuterol-i pratropium (COMBIVENT RESPIMAT) 20-100 mcg/actuati on inhaler 1 Puff 06-30 14:00: 00 Yes 1{puff} 1 Puff, Inhalation , QID, First dose on Mon06/30/22 at 0800, Until Discontinu ed, Routine
Is this order for a patient with suspected or confirmed COVID-19 infection? Yes [facility] albuterol (VENTOLIN) inhaler 2 Puff 06-30 13:17: 10 Yes 2{puff} 2 Puff, Inhalation , Q4HPRN, Starting on Mon06/30/22 at 0717, Until Discontinu ed, Routine, Wheezing, Shortness of Breath, Bronchospa sm, Chest tightness [facility] acute hospital NaCl 0.9% (NS) 1000 mL + KCL 40 mEq 06-30 06:45: 00 07-01 15:58 :01 No IV Infusion, at 150 mL/hr, CONTINUOUS , Starting on Mon06/30/22 at 0045, Until Mon07/01/22 at 0958, ISELA [facility] acute hospital acetaminoph en ADULT (OFIRMEV) injection 1,000 mg 06-30 06:45: 00 06-30 06:41 :00 No 1000mg 1,000 mg, IV Infusion, at 400 mL/hr Administer over 15 Minutes, ONCE, 1 dose, On Mon06/30/22 at 0045, Routine
Indicatio n: Perioperat adiel Patient [facility] acute hospital cefTRIAXone (ROCEPHIN) 1,000 mg in NaCl 0.9% (NS) 100 mL MINI-BAG 06-30 06:30: 00 06-30 06:55 :00 No 1000mg 1,000 mg, IV Piggyback, ONCE, 1 dose, On Mon06/30/22 at 0030, Administer over 30 Minutes, 100 mL
Reas on for Anti-Infec tive: Documented Infection< br>Documen camron Infection Site: Urine
D uration of Therapy: Other (see Comments) [facility] acute hospital ondansetron (ZOFRAN (PF)) injection 4 mg 06-30 06:22: 11 Yes 4mg 4 mg, Slow IV Push, Q6HPRN, Starting on Mon06/30/22 at 0022, Until Discontinu ed, Routine, Nausea and Vomiting (N/V) [facility] acute hospital traMADoL (ULTRAM) tablet 50 mg 06-30 06:22: 06 07-02 06:21 :06 No 50mg 50 mg, Oral, Q8HPRN, Starting on Mon06/30/22 at 0022, Until 07/02/22 at 0021, Routine, Pain (scale 4-6) [facility] acute hospital acetaminoph en (TYLENOL) tablet 650 mg 06-30 06:22: 03 Yes 650mg 650 mg, Oral, Q6HPRN, Starting on Mon06/30/22 at 0022, Until Discontinu ed, Routine, Pain (scale 1-3) [facility] acute hospital FENTanyl PF (SUBLIMAZE (PF)) injection 25 mcg 06-30 06:00: 00 06-30 06:13 :00 No 25ug 25 mcg, Slow IV Push, ONCE, 1 dose, On Bijal 06/30/22 at 0000, STAT [facility] acute hospital famotidine (PEPCID (PF)) injection 20 mg 06-30 01:45: 00 06-30 03:50 :00 No 20mg 20 mg, Slow IV Push, ONCE NOW, 1 dose, On Mon06/29/22 at 1945, ISELA [facility] acute hospital NaCl 0.9% (NS) bolus infusion 1,000 mL 06-30 01:30: 00 06-30 05:46 :00 No 1000mL at 999 mL/hr, 1,000 mL, IV Piggyback, ONCE, 1 dose, On Mon06/29/22 at 1930, STAT [facility] ondansetron (ZOFRAN (PF)) injection 8 mg 06-30 00:45: 00 06-30 03:49 :00 No 8mg 8 mg, Slow IV Push, ONCE, 1 dose, On Mon06/29/22 at 1845, ISELA [facility] acute hospital MIRTAZAPINE 30 MG ORAL TAB 08-02 00:00: 00 Yes Take 1 and 1/2 tab QHS PO [facility] acute hospital PAROXETINE HCL 20 MG ORAL TAB 08-02 00:00: 00 Yes 1 Tab Oral DAILY [facility] acute hospital RAMELTEON 8 MG ORAL TAB 08-02 00:00: 00 Yes 1 Tab Oral QHS [facility] MIRTAZAPINE 30 MG ORAL TAB 08-02 00:00: 00 Yes Take 1 and 1/2 tab QHS PO [facility] acute hospital PAROXETINE HCL 20 MG ORAL TAB 08-02 00:00: 00 Yes 1 Tab Oral DAILY [facility] acute hospital RAMELTEON 8 MG ORAL TAB 08-02 00:00: 00 Yes 1 Tab Oral [facility] Vital Signs Vital Name Observation Time Observation Value Comments Mason owen Systolic blood pressure 2022-07-03 21:31:00 136 mm[Hg] [facility] Diastolic blood pressure 2022-07-03 21:31:00 71 mm[Hg] [facility] Heart rate 2022-07-03 21:31:00 97 /min [facility] Respiratory rate 2022-07-03 21:31:00 18 /min [facility] Oxygen saturation in Arterial blood by Pulse oximetry 2022-07-03 21:31:00 94 /min [facility] Body temperature 2022-07-03 17:19:00 36.22 [place] [facility] Body weight 2022-07-03 10:06:00 99.973 kg [facility] BMI 2022-07-03 10:06:00 39.04 kg/m2 [facility] Body height 2022-06-30 07:26:00 160 cm [facility] Procedures Procedure Date / Time Performed Performing Clinician Source BASIC METABOLIC PANEL (NA, K, CL, CO2, GLUCOSE, BUN, CREATININE, CA) 2022-07-03 12:48:00 Delgado Batista [facility] CBC WITH DIFF 2022-07-03 12:48:00 Delgado Batista [facility] BASIC METABOLIC PANEL (NA, K, CL, CO2, GLUCOSE, BUN, CREATININE, CA) 2022-07-02 12:01:00 Delgado Batista [facility] CBC WITH DIFF 2022-07-02 12:01:00 Delgado Batista [facility] XR CHEST 1 VW 2022-07-01 17:20:52 Delgado Batista [facility] ACUTE CARE VENOUS BLOOD GAS 2022-07-01 16:33:00 Delgado aBtista [facility] BASIC METABOLIC PANEL (NA, K, CL, CO2, GLUCOSE, BUN, CREATININE, CA) 2022-07-01 08:35:00 Edionwe, [facility] CBC WITH DIFF 2022-07-01 08:35:00 Santiago [facility] URINE CULTURE 2022-06-30 20:11:00 Delgado Batista [facility] BASIC METABOLIC PANEL (NA, K, CL, CO2, GLUCOSE, BUN, CREATININE, CA) 2022-06-30 15:14:00 Santiago [facility] CBC WITH DIFF 2022-06-30 15:14:00 Santiago [facility] COVID-19 (ID NOW RAPID TESTING) 2022-06-30 10:11:00 Santiago [facility] LAB ONLY COVID INTERPRETATION 2022-06-30 10:11:[address] Santiago [facility] [address] ABDOMEN PELVIS WO CONTRAST 2022-06-30 05:17:12 Derik Mohamud [facility] URINE DRUG (IMMUNOASSAY) - COMPREHENSIVE DRUG SCREEN 2022-06-30 04:22:00 Derik Mohamud [facility] URINALYSIS 2022-06-30 04:22:00 Derik Mohamud [facility] MAGNESIUM 2022-06-30 03:49:00 Derik Mohamud [facility] COMP. METABOLIC PANEL (10991) 2022-06-30 03:49:00 Derik Mohamud [facility] LIPASE 2022-06-30 03:19:00 Derik Mohamud [facility] CBC WITH DIFF 2022-06-30 03:19:[address] [facility] XR ABDOMEN 2 VW 2022-06-30 01:04:24 Derik Mohamud [facility] NOTICE OF PRIVACY PRACTICES 2022-06-30 00:00:04 Doctor Unassigned, [place] [facility] CONSENT/REFUSAL FOR DIAGNOSIS AND TREATMENT 2022-06-29 23:59:37 Doctor Unassigned, [place] [facility] Encounters Start Date/Time End Date/Time Encounter Type Admission Type Attending Clinicians Care Facility Care Department Encounter ID Source 2023-05-22 14:56:42 2023-05-22 14:56:42 Outpatient [facility] [id number] Conner Pink 2023-04-04 13:24:54 2023-04-04 13:24:54 Outpatient [facility] [id number] Conner Pink 2023-02-14 16:50:56 2023-02-14 16:50:56 Outpatient [facility] [id number] Conner Pink 2023-01-18 17:10:28 2023-01-18 17:10:28 Outpatient [facility] [id number] Conner Pink 2022-11-28 10:21:37 2022-11-28 10:21:37 Outpatient [facility] [id number] Conner Pink 2022-11-10 15:32:33 2022-11-10 15:32:33 Outpatient [facility] [id number] Conner Pink 2022-09-27 10:38:05 2022-09-27 10:38:05 Outpatient [facility] [id number] Conner Pink 2022-09-16 16:10:40 2022-09-16 16:10:40 Outpatient [facility] [id number] Conner Pink 2022-07-21 08:35:57 2022-07-21 08:35:57 Outpatient [facility] [id number] Conner Pink 2022-07-05 00:00:00 2022-07-05 00:00:00 Transition of Care Jackie Roland .[id number] General acute hospital 2022-06-29 18:36:00 2022-07-03 16:40:00 Hospital Encounter Derik Mohamud, Casey Comer [facility] 1..[id number] General acute hospital 2022-06-29 18:36:00 2022-07-03 16:40:00 Inpatient [facility] [id number] General acute hospital 2022-06-16 16:08:21 2022-06-16 16:08:21 Outpatient [facility] [id number] Conner Pink Results Test Description Test Time Test Comments Results Result Co mments Source TSH, THIRD [id number] 06:16:39* Test Item Value Reference Range Interpretation Comme nts TSH, THIRD GENERATION (test code = 2821) 12.000 UIU/ML 0.400-4.100 H LIPID [id number] 05:36:52* Test Item Value Reference Range Interpretation Comme nts CHOLESTEROL (test code = 2210) 289 MG/DL <200 H TRIGLYCERIDES (test code = 2232) 255 MG/DL <150 H HDL CHOLESTEROL (test code = 2220) 47 MG/DL >39 CALC LDL CHOL (test code = 2237) 196 MG/DL <100 H NOTE: CALCULATED LDL IS BASED ON RICO-PAINTING METHOD WHICHINCLUDES ADJUSTABLE TRIGLYCERIDE:VLDL CHOLESTEROL RATIO.THIS FACTOR VARIES BY MEASURED TRIGLYCERIDE AND NON-HDLCHOLESTEROL CONCENTRATIONS WITH INCREASED CALCULATED LDL SEENIN HIGHER TRIGLYCERIDE OR LOWER NON-HDL SPECIMENS. FOR MOREINFORMATION, SEE CLIENT ANNOUNCEMENT AT [email or web address] RISK RATIO LDL/HDL (test code = 2238) 4.17 RATIO <3.22 H COMPREHENSIVE METABOLIC [id number] 05:36:52* Test Item Value Reference Range Interpretation Comme nts GLUCOSE (test code = 2217) 114 MG/DL 70-99 H BUN (test code = 2208) 19 MG/DL 8-23 CREATININE (test code = 2214) 1.39 MG/DL 0.60-1.30 H eGFR (2020 CKD-EPI) (test code = 78106) 41 ML/MIN/1.73 >60 L CALC BUN/CREAT (test code = 2235) 14 RATIO 6-28 SODIUM (test code = 2231) 140 MEQ/L 133-146 POTASSIUM (test code = 2228) 4.1 MEQ/L 3.5-5.4 CHLORIDE (test code = 2215) 100 MEQ/L 95-107 CARBON DIOXIDE (test code = 2206) 27 MEQ/L 19-31 CALCIUM (test code = 2208) 9.6 MG/DL 8.5-10.5 PROTEIN, TOTAL (test code = 2228) 6.8 G/DL 6.1-8.3 ALBUMIN (test code = 2200) 4.1 G/DL 3.5-5.2 CALC GLOBULIN (test code = 0) 2.7 G/DL 1.9-3.7 CALC A/G RATIO (test code = 2233) 1.5 RATIO 1.0-2.6 BILIRUBIN, TOTAL (test code = 2206) <0.2 MG/DL See_Comment [Automated me ssage] The system which generated this result transmitted reference range: <=1.2. The reference range was not used to interpret this result as normal/abnormal. ALKALINE PHOSPHATASE (test code = 2203) 171 U/L 40-142 H AST (test code = 2217) 16 U/L 9-40 ALT (test code = 2218) 13 U/L 5-40 HEMOGLOBIN [id number] 03:19:58* Test Item Value Reference Range Interpretation Comme nts HEMOGLOBIN A1c (test code = 16120) 6.1 % 4.2-5.6 H CITIZEN OF [place] GUIDELINES FOR HGB A1C: PREDIABETES/INCREASED RISK . . . . . . . 5.7-6.4% DIAGNOSIS OF DIABETES . . . . . . . . . >=6.5% WITH CONFIRMATION OR APPROPRIATE SYMPTOMS NOTE: ASSAY MAY BE AFFECTED BY HEMOGLOBINOPATHIES (SICKLE CELL ANEMIA, S-C DISEASE, OTHERS) OR ARTIFICIALLY LOWERED BY DECREASED RED CELL SURVIVAL (HEMOLYTIC ANEMIAS, BLOOD LOSS, ETC.). CONSIDER ALTERNATE TESTING OR LABORATORY CONSULTATION. CBC W/AUTO DIFF WITH [id number] 02:26:20* Test Item Value Reference Range Interpretation Comme nts WBC (test code = 1001) 11.8 K/UL 3.5-11.0 H RBC (test code = 1002) 3.74 M/UL 3.80-5.40 L HEMOGLOBIN (test code = 1003) 9.8 G/DL 11.5-15.5 L HEMATOCRIT (test code = 1004) 31.2 % 34.0-45.0 L MCV (test code = 1005) 83.4 fL 80.0-99.0 MCH (test code = 1006) 26.2 PG 25.0-33.0 MCHC (test code = 1007) 31.4 G/DL 31.0-36.0 RDW (test code = 1038) 14.8 % 11.5-15.0 NEUTROPHILS (test code = 1008) 79.3 % LYMPHOCYTES (test code = 1010) 10.8 % MONOCYTES (test code = 1011) 8.2 % EOSINOPHILS (test code = 1012) 1.0 % BASOPHILS (test code = 1013) 0.2 % IMMATURE GRANULOCYTES (test code = 1036) 0.5 % NUCLEATED RBCS (test code = 1065) 0.0 /100 WBC'S See_Comment [Automated messa ge] The system which generated this result transmitted reference range: 0.0. The reference range was not used to interpret this result as normal/abnormal. PLATELET COUNT (test code = 1015) 335 K/UL 130-400 ABSOLUTE NEUTROPHILS (test code = 1066) 9.39 K/UL 1.50-7.50 H ABSOLUTE LYMPHOCYTES (test code = 1067) 1.28 K/UL 1.00-4.00 ABSOLUTE MONOCYTES (test code = 1068) 0.97 K/UL 0.20-1.00 ABSOLUTE EOSINOPHILS (test code = 1040) 0.12 K/UL 0.00-0.50 ABSOLUTE BASOPHILS (test code = 1069) 0.02 K/UL 0.00-0.20 ABS IMMATURE GRANULOCYTES (test code = 1020) 0.06 K/UL 0.00-0.10 ABS NUCLEATED RBCS (test code = 39763) 0.00 K/UL 0.00-0.11 CULTURE, [id number] 16:00:26SPECIMEN NUMBER: [id number] CULTURE, URINE SPECIMEN NUMBER: [id number] SPECIMEN COMMENT: URINE SOURCE: URINE REPORT STATUS: FINAL FINAL REPORT: 07/23/2022 50-100,000 CFU/ML UROGENITAL CONNOR PRESENT NO C [facility] has important pathology staff changes effective 07/06/2022. New pathology staff will provide uninterrupted, excellent patient care and clinical consultation. See URL: [email or web address]. UNLESS OTHERWISE INDICATED, ALL TESTING PERFORMED AT [facility], [address] [place] [address] BUSINESS DEVELOPMENT INTERN: JONN MILTON M.D. CLIA NUMBER [id number] [facility] [place] [id number] METABOLIC PANEL (NA, K, CL, CO2, GLUCOSE, BUN, CREATININE, CA)2022-07-02 12:38:20* Test Item Value Reference Range Interpretation Comme nts NA (test code = 3155517155) 136 mmol/L 135-145 K (test code = 4700718671) 4.1 mmol/L 3.5-5.0 CL (test code = 5083862448) 108 mmol/L 98-108 CO2 TOTAL (test code = 5938878830) 21 mmol/L 23-31 L AGAP (test code = 7088447389) 7 2-16 BUN (test code = 0007881332) 13 mg/dL 7-23 GLUCOSE (test code = 9841923539) 87 mg/dL 70-110 CREATININE (test code = 8529539073) 1.50 mg/dL 0.50-1.04 H CALCIUM (test code = 5909892191) 7.5 mg/dL 8.6-10.6 L eGFR (test code = 7066476883) 34.2 mL/min/1.73m2 JOE (test code = JOE) [...] imaging tests). Lab Interpretation (test code = 85298-9) Abnormal [facility] WITH [id number] 12:30:18* Test Item Value Reference Range Interpretation Comme nts WBC (test code = 6690-2) 7.01 See_Comment [[employer]] The system which generated this result transmitted reference range: 4.30 - 11.10 10*3/?L. The reference range was not used to interpret this result as normal/abnormal. RBC (test code = 789-8) 3.28 See_Comment L [[employer]] The system which generated this result transmitted reference range: 3.93 - 5.25 10*6/?L. The reference range was not used to interpret this result as normal/abnormal. HGB (test code = 718-7) 8.7 g/dL 11.6-15.0 L HCT (test code = 4544-3) 28.7 % 35.7-45.2 L MCV (test code = 787-2) 87.5 fL 80.6-95.5 MCH (test code = 785-6) 26.5 pg 25.9-32.8 MCHC (test code = 786-4) 30.3 g/dL 31.6-35.1 L RDW-SD (test code = 28275-0) 52.1 fL 39.0-49.9 H RDW-CV (test code = 788-0) 16.1 % 12.0-15.5 H PLT (test code = 777-3) 259 See_Comment [[employer]] The system which generated this result transmitted reference range: 166 - 358 10*3/?L. The reference range was not used to interpret this result as normal/abnormal. MPV (test code = 57126-2) 11.6 fL 9.5-12.9 NRBC/100 WBC (test code = 6921273917) 0.0 See_Comment [Automated me ssage] The system which generated this result transmitted reference range: 0.0 - 10.0 /100 WBCs. The reference range was not used to interpret this result as normal/abnormal. NRBC x10^3 (test code = 0172326766) See_Comment [Automated messa ge] The system which generated this result transmitted reference range: 10*3/?L. The reference range was not used to interpret this result as normal/abnormal. GRAN MAT (NEUT) % (test code = 770-8) 65.2 % IMM GRAN % (test code = 2982708775) 1.40 % LYMPH % (test code = 736-9) 22.7 % MONO % (test code = 5905-5) 8.0 % EOS % (test code = 713-8) 2.4 % BASO % (test code = 706-2) 0.3 % GRAN MAT x10^3(ANC) (test code = 4362191623) 4.57 10*3/uL 1.88-7.09 IMM GRAN x10^3 (test code = 0902430006) 0.10 10*3/uL 0.00-0.06 H LYMPH x10^3 (test code = 731-0) 1.59 10*3/uL 1.32-3.29 MONO x10^3 (test code = 742-7) 0.56 10*3/uL 0.33-0.92 EOS x10^3 (test code = 711-2) 0.17 10*3/uL 0.03-0.39 BASO x10^3 (test code = 704-7) 0.01-0.07 Lab Interpretation (test code = 60258-0) [facility]normal [facility] 21:22:03* Test Item Value Reference Range Interpretation Comme nts MAGNESIUM (test code = 0119584073) 1.1 mg/dL 1.7-2.4 L Lab Interpretation (test cod e = 96237-6) Abnormal [facility]OL[facility] PAN[facility] (62502)2022-06-30 04:33:29* Test Item Value Reference Range Interpretation Comme nts NA (test code = 3951704485) 134 mmol/L 135-145 L K (test code = 4739349811) 3.1 mmol/L 3.5-5.0 L CL (test code = 1844046777) 91 mmol/L 98-108 L CO2 TOTAL (test code = 4717760714) 27 mmol/L 23-31 AGAP (test code = 1563842488) 16 2-16 BUN (test code = 3256887710) 16 mg/dL 7-23 GLUCOSE (test code = 2588804271) 89 mg/dL 70-110 CREATININE (test code = 0738714419) 2.12 mg/dL 0.50-1.04 H TOTAL BILI (test code = 0253313608) 0.7 mg/dL 0.1-1.1 CALCIUM (test code = 7431257652) 8.1 mg/dL 8.6-10.6 L T PROTEIN (test code = 7442026002) 7.1 g/dL 6.3-8.2 ALBUMIN (test code = 9446998131) 3.7 g/dL 3.5-5.0 ALK PHOS (test code = 0283995419) 141 U/L 34-122 H ALTv (test code = 1742-6) 13 U/L 5-35 AST(SGOT) (test code = 9102794346) 19 U/L 13-40 eGFR (test code = 9844863057) 23.0 mL/min/1.73m2 JOE (test code = JOE) Association [...] imaging tests). Lab Interpretation (test code = 27984-7) Abnormal [facility] WITH [id number] 03:27:33* Test Item Value Reference Range Interpretation Comme nts WBC (test code = 6690-2) 12.52 See_Comment H [Automated message] The system which generated this result transmitted reference range: 4.30 - 11.10 10*3/?L. The reference range was not used to interpret this result as normal/abnormal. RBC (test code = 789-8) 4.07 See_Comment [Automated message] The system which generated this result transmitted reference range: 3.93 - 5.25 10*6/?L. The reference range was not used to interpret this result as normal/abnormal. HGB (test code = 718-7) 10.8 g/dL 11.6-15.0 L HCT (test code = 4544-3) 34.5 % 35.7-45.2 L MCV (test code = 787-2) 84.8 fL 80.6-95.5 MCH (test code = 785-6) 26.5 pg 25.9-32.8 MCHC (test code = 786-4) 31.3 g/dL 31.6-35.1 L RDW-SD (test code = 29041-1) 48.4 fL 39.0-49.9 RDW-CV (test code = 788-0) 15.6 % 12.0-15.5 H PLT (test code = 777-3) 309 See_Comment [Automated message] The system which generated this result transmitted reference range: 166 - 358 10*3/?L. The reference range was not used to interpret this result as normal/abnormal. MPV (test code = 65914-5) 11.5 fL 9.5-12.9 NRBC/100 WBC (test code = 0115054175) 0.0 See_Comment [Automated message] The system which generated this result transmitted reference range: 0.0 - 10.0 /100 WBCs. The reference range was not used to interpret this result as normal/abnormal. NRBC x10^3 (test code = 3893896200) See_Comment [Automated message] The system which generated this result transmitted reference range: 10*3/?L. The reference range was not used to interpret this result as normal/abnormal. GRAN MAT (NEUT) % (test code = 770-8) 81.3 % IMM GRAN % (test code = 8665956945) 0.50 % LYMPH % (test code = 736-9) 9.8 % MONO % (test code = 5905-5) 7.9 % EOS % (test code = 713-8) 0.3 % BASO % (test code = 706-2) 0.2 % GRAN MAT x10^3(ANC) (test code = 5001639717) 10.17 10*3/uL 1.88-7.09 H IMM GRAN x10^3 (test code = 9233054542) 0.06 10*3/uL 0.00-0.06 LYMPH x10^3 (test code = 731-0) 1.23 10*3/uL 1.32-3.29 L MONO x10^3 (test code = 742-7) 0.99 10*3/uL 0.33-0.92 H EOS x10^3 (test code = 711-2) 0.04 10*3/uL 0.03-0.39 BASO x10^3 (test code = 704-7) 0.03 10*3/uL 0.01-0.07 Lab Interpretation (test code = 25243-1) Abnormal [facility]"
--- NOTE | 2023-06-01 22:37 | RAD REPORT ---
EXAM DESCRIPTION: [facility] Single View06/01/2023 10:11 pm CLINICAL HISTORY: Chest pain COMPARISON: September 2022 FINDINGS: Small opacity lateral left upper lobe is probably either stable or mildly diminished in si ze. The evaluation is somewhat limited secondary to overlying artifact. Further evaluation could be o btained with PA and lateral chest series Remainder lungs appear clear. Heart is normal size
[2023-06-01 23:28] LABS: Absolute Lymphocytes (CBC) 1.8 K/uL (0.7-4.9); Lymphocytes % 14.2 % (15.3-44.8); MCV 86.9 fL (80-100); MPV 8.2 fL (7.6-11.3); Platelets 227 thou/uL (152-406)
[2023-06-01 23:44] LABS: Specific Gravity 1.023 (1.005-1.030); Urine Bacteria None Seen /HPF (<20); Urine Bilirubin NEGATIVE (Negative); Urine Blood Negative (Negative); Urine Clarity Clear (Clear); Urine Color Light-Yellow (Yellow); Urine Glucose NEGATIVE (Negative); Urine Protein NEGATIVE (Negative); Urine RBC <5 /HPF (None Seen); Urine Urobilinogen 1+ (Normal)
[2023-06-01 23:52] LABS: Troponin High Sensitivity 6.7 pg/mL (<58.9)
[2023-06-01 23:53] LABS: Potassium 4.1 mEq/L (3.5-5.1)
[2023-06-02] MEDS ORDERED: ACETAMINOPHEN 325 MG TABLET PO PRN (02:29)
[2023-06-02] MEDS ORDERED: ONDANSETRON 4 MG/2 ML VIAL IV PRN (02:29)
--- NOTE | 2023-06-02 02:29 | ER ---
Nurse's Notes [facility] Name: Amna Lundberg Age: 72 yrs Sex: Female : 1950 Arrival Date: 06/01/2023 Time: 21:26 Bed 4 Private MD: Diagnosis: Chest pain, unspecified;COPD/ Chronic obstructive pulmonary disease, unspecified;Hypertensive heart disease without heart failure Presentation: 06/01 22:18 Chief complaint: Patient states: Pt c/o reproducible, sharp left side chest pain and tl4 dizziness since yesterday. Pt denies nausea, diaphoresis, SOB, fever/chills, or cough. Coronavirus screen: Vaccine status: Patient reports receiving the 2nd dose of the covid vaccine. At this time, the client does not indicate any symptoms associated with coronavirus-19. Ebola Screen: Patient negative for fever greater than or equal to 101.5 degrees Fahrenheit, and additional compatible Ebola Virus Disease symptoms Patient denies exposure to infectious person. Patient denies travel to an Ebola-affected area in the 21 days before illness onset. No symptoms or risks identified at this time. Initial Sepsis Screen: Does the patient meet any 2 criteria? No. Patient's initial sepsis screen is negative. Does the patient have a suspected source of infection? No. Patient's initial sepsis screen is negative. Risk Assessment: Do you want to hurt yourself or someone else? Patient reports no desire to harm self or others. Onset of symptoms was May 31, 2023. 22:18 Method Of Arrival: EMS: [facility] tl4 22:18 Acuity: DOMENICO 2 tl4 Triage Assessment: 22:21 General: Appears in no apparent distress. Behavior is calm, cooperative. Pain: tl4 Complains of pain in chest. EENT: No deficits noted. No signs and/or symptoms were reported regarding the EENT system. Neuro: No deficits noted. Cardiovascular: Reports chest pain, Denies diaphoresis, fatigue, lightheadedness, palpitations, syncope. Respiratory: No deficits noted. Denies cough, shortness of breath. GI: No deficits noted. No signs and/or symptoms were reported involving the gastrointestinal system. : No deficits noted. No signs and/or symptoms were reported regarding the genitourinary system. Derm: No deficits noted. No signs and/or symptoms reported regarding the dermatologic system. Historical: - Allergies: 22:21 No Known Allergies; tl4 - PMHx: 22:21 Chronic obstructive lung disease; depressive disorder; Chronic pain; Hypertensive tl4 disorder; - PSHx: 22:21 Total abdominal hysterectomy; tl4 - Immunization history:: Adult Immunizations unknown. - Social history:: Smoking status: Patient/guardian denies using tobacco, the patient reports quitting approximately 38 years ago. Screenin:22 [facility] ED Fall Risk Assessment (Adult) History of falling in the last 3 months, tl4 including since admission No falls in past 3 months (0 pts) Confusion or Disorientation No (0 pts) Intoxicated or Sedated No (0 pts) Impaired Gait No (0 pts) Mobility Assist Device Used No (0 pt) Altered Elimination No (0 pt) Score/Fall Risk Level 0 - 2 = Low Risk Oriented to surroundings, Maintained a safe environment, Educated pt \T\ family on fall prevention, incl call for assistance when getting out of bed, Assessed \T\ reinforced patient's understanding of fall precautions, Provided non-skid footwear, Hourly rounding (assess needs \T\ fall precautionary measures) done, Used ambulatory aids as needed (educated on \T\ assisted with), Used gait belt as appropriate. Abuse screen: Denies threats or abuse. Denies injuries from another. Nutritional screening: No deficits noted. Tuberculosis screening: No symptoms or risk factors identified. Assessment: 22:20 General: See triage assessment. [facility] 23:32 Reassessment: Patient appears in no apparent distress at this time. No changes from jw7 previously documented assessment. Patient and/or family updated on plan of care and expected duration. Pain level reassessed. Patient is alert, oriented x 3, equal unlabored respirations, skin warm/dry/pink. 23:35 Reassessment: Patient appears in no apparent distress at this time. No changes from tm6 previously documented assessment. 06/02 00:34 Reassessment: Patient appears in no apparent distress at this time. No changes from tm6 previously documented assessment. Patient and/or family updated on plan of care and expected duration. Pain level reassessed. Patient is alert, oriented x 3, equal unlabored respirations, skin warm/dry/pink. 01:27 Reassessment: Patient appears in no apparent distress at this time. No changes from jw7 previously documented assessment. Patient and/or family updated on plan of care and expected duration. Pain level reassessed. Patient is alert, oriented x 3, equal unlabored respirations, skin warm/dry/pink. 02:30 Reassessment: Patient appears in no apparent distress at this time. Patient and/or jw7 family updated on plan of care and expected duration. Pain level reassessed. Patient is alert, oriented x 3, equal unlabored respirations, skin warm/dry/pink. 03:30 Reassessment: Patient appears in no apparent distress at this time. Patient and/or jw7 family updated on plan of care and expected duration. Pain level reassessed. Patient is alert, oriented x 3, equal unlabored respirations, skin warm/dry/pink. 04:18 Reassessment: Patient appears in no apparent distress at this time. Patient and/or jw7 family updated on plan of care and expected duration. Pain level reassessed. Patient is alert, oriented x 3, equal unlabored respirations, skin warm/dry/pink. Vital Signs: 06/01 22:18 BP 134 / 78; Pulse 89; Resp 16; Temp 98.3; Pulse Ox 96% on 1 lpm NC; Weight 92.08 kg; tl4 Height 5 ft. 3 in. ; Pain 9/10; 23:34 BP 144 / 84; Pulse 77; Resp 16; Pulse Ox 100% on 1 lpm NC; tm6 06/02 00:34 BP 138 / 78; Pulse 68; Resp 13; Pulse Ox 99% on 1 lpm NC; tm6 01:27 BP 127 / 77; Pulse 67; Resp 15 S; Pulse Ox 100% on 1 lpm NC; jw7 02:30 BP 129 / 60; Pulse 71; Resp 16 S; Pulse Ox 100% on 1 lpm NC; jw7 03:30 BP 131 / 79; Pulse 65; Resp 14 S; Pulse Ox 100% on 1 lpm NC; jw7 06/01 22:18 Body Mass Index 35.96 (92.08 kg, 160.02 cm) tl4 06/01 22:18 Pain Scale: Adult tl4 ED Course: 06/01 21:42 Patient arrived in ED. kl 21:46 Quinn Petersen MD is Attending Physician. kdr 22:13 XRAY Chest (1 view) In Process Unspecified. EDMS 22:21 Triage completed. tl4 22:22 Arm band placed on Patient placed in an exam room, on a stretcher. tl4 22:23 Patient has correct armband on for positive identification. Placed in gown. Bed in low tl4 position. Call light in reach. Side rails up X2. Provided Education on: ed process. Client placed on continuous cardiac and pulse oximetry monitoring. NIBP monitoring applied. drug safety scientist on. Door closed. Moved to private room. Warm blanket given. 06/02 02:27 Pop Maguire is Hospitalizing Provider. kdr 04:26 No provider procedures requiring assistance completed. Patient did not have IV access jw7 during this emergency room visit. 04:45 Inserted saline lock: 22 gauge in right forearm, using aseptic technique. [facility] Administered Medications: No medications were administered Medication: 04:26 VIS not applicable for this client. jw7 Outcome: 02:28 Decision to Hospitalize by Provider. kdr 04:26 Admitted to Med/surg accompanied by tech, via wheelchair, room 212, with oxygen, Report jw7 called to LINDY Donaldson 04:26 Condition: stable 04:26 Instructed on the need for admit, Demonstrated understanding of instructions, 05:00 Patient left the ED. jb4 Signatures: Dispatcher [facility] EDME Anastasiya Gaona, RN Quinn Burnette MD MD kdr Bryson, James, RN RN jb4 Roxy Hendrickson RN RN jwShey Velasco [facility] Carlos Hadley RN RN tm6 Ze Jiménez tl4 Corrections: (The following items were deleted from the chart) 04:20 01:27 BP 127 / 77; Pulse 67bpm; Resp 15bpm; Spontaneous; Pulse Ox 100% RA; jwNayla jwNayla
--- NOTE | 2023-06-02 02:29 | EDPHYS ---
Physician Documentation [facility] Name: Amna Lundberg Age: 72 yrs Sex: Female : 1950 Arrival Date: 06/01/2023 Time: : Bed 4 Private MD: ED Physician Quinn Petersen HPI: 06/02 03:36 This 72 yrs old Female presents to ER via EMS with complaints of chest pain. kdr 03:36 Patient presents to the ED with left-sided chest pain that began acutely several hours kdr prior to arrival. She has had intermittent chest discomfort since yesterday but became particularly worse prior to arrival. Patient also complains of slight shortness of breath but denies nausea or diaphoresis. She also denies fever and chills or cough. Patient has a history of COPD. Patient is nontoxic-appearing. 04:04 Onset: The symptoms/episode began/occurred suddenly, today. Severity of symptoms: At kdr their worst the symptoms were moderate today, in the emergency department the symptoms have improved markedly. The patient has not experienced similar symptoms in the past. The patient has not recently seen a physician. Historical: - Allergies: 06/01 22:21 No Known Allergies; tl4 - PMHx: 22:21 Chronic obstructive lung disease; depressive disorder; Chronic pain; Hypertensive tl4 disorder; - PSHx: 22:21 Total abdominal hysterectomy; tl4 - Immunization history:: Adult Immunizations unknown. - Social history:: Smoking status: Patient/guardian denies using tobacco, the patient reports quitting approximately 38 years ago. ROS: 06/02 04:04 Constitutional: Negative for fever, chills, and weight loss, Eyes: Negative for injury, kdr pain, redness, and discharge, ENT: Negative for injury, pain, and discharge, Neck: Negative for injury, pain, and swelling, Abdomen/GI: Negative for abdominal pain, nausea, vomiting, diarrhea, and constipation, Back: Negative for injury and pain, : Negative for injury, bleeding, discharge, and swelling, MS/Extremity: Negative for injury and deformity, Skin: Negative for injury, rash, and discoloration, Neuro: Negative for headache, weakness, numbness, tingling, and seizure activity. Psych: Negative for depression, anxiety, suicide ideation, homicidal ideation, and hallucinations, Allergy/Immunology: Negative for hives, rash, and allergies, Endocrine: Negative for neck swelling, polydipsia, polyuria, polyphagia, and marked weight changes, Hematologic/Lymphatic: Negative for swollen nodes, abnormal bleeding, and unusual bruising, Cardiovascular: Positive for chest pain, of the anterior aspect of left upper chest and left breast, Respiratory: Positive for dyspnea on exertion, shortness of breath, at rest. Exam: 04:04 Constitutional: This is a well developed, well nourished patient who is awake, alert, kdr and in no acute distress. Head/Face: Normocephalic, atraumatic. Eyes: Pupils equal round and reactive to light, extra-ocular motions intact. Lids and lashes normal. Conjunctiva and sclera are non-icteric and not injected. Cornea within normal limits. Periorbital areas with no swelling, redness, or edema. Neck: Trachea midline, no thyromegaly or masses palpated, and no cervical lymphadenopathy. Supple, full range of motion without nuchal rigidity, or vertebral point tenderness. No Meningismus. Chest/axilla: Normal chest wall appearance and motion. Nontender with no deformity. No lesions are appreciated. Cardiovascular: Regular rate and rhythm with a normal S1 and S2. No gallops, murmurs, or rubs. Normal PMI, no JVD. No pulse deficits. Respiratory: Lungs have equal breath sounds bilaterally, clear to auscultation and percussion. No rales, rhonchi or wheezes noted. No increased work of breathing, no retractions or nasal flaring. Abdomen/GI: Soft, non-tender, with normal bowel sounds. No distension or tympany. No guarding or rebound. No evidence of tenderness throughout. Back: No spinal tenderness. No costovertebral tenderness. Full range of motion. Skin: Warm, dry with normal turgor. Normal color with no rashes, no lesions, and no evidence of cellulitis. MS/ Extremity: Pulses equal, no cyanosis. Neurovascular intact. Full, normal range of motion. Neuro: Awake and alert, GCS 15, oriented to person, place, time, and situation. Cranial nerves II-XII grossly intact. Motor strength 5/5 in all extremities. Sensory grossly intact. Cerebellar exam normal. Normal gait. Psych: Awake, alert, with orientation to person, place and time. Behavior, mood, and affect are within normal limits. Vital Signs: 06/01 22:18 BP 134 / 78; Pulse 89; Resp 16; Temp 98.3; Pulse Ox 96% on 1 lpm NC; Weight 92.08 kg; tl4 Height 5 ft. 3 in. ; Pain 9/10; 23:34 BP 144 / 84; Pulse 77; Resp 16; Pulse Ox 100% on 1 lpm NC; tm6 06/02 00:34 BP 138 / 78; Pulse 68; Resp 13; Pulse Ox 99% on 1 lpm NC; tm6 01:27 BP 127 / 77; Pulse 67; Resp 15 S; Pulse Ox 100% on 1 lpm NC; jw7 02:30 BP 129 / 60; Pulse 71; Resp 16 S; Pulse Ox 100% on 1 lpm NC; jw7 03:30 BP 131 / 79; Pulse 65; Resp 14 S; Pulse Ox 100% on 1 lpm NC; jw7 06/01 22:18 Body Mass Index 35.96 (92.08 kg, 160.02 cm) tl4 06/01 22:18 Pain Scale: Adult tl4 MDM: 02:28 Patient medically screened. kdr 04:04 Data reviewed: vital signs, nurses notes, lab test result(s), EKG, radiologic studies. kdr 06/01 21:49 Order name: Basic Metabolic Panel; Complete Time: 01:10 [facility] 06/01 21:49 Order name: CBC with Diff; Complete Time: 01:10 [facility] 06/01 21:49 Order name: Troponin HS; Complete Time: 01:10 [facility] 06/01 21:49 Order name: UAM; Complete Time: 01:10 [facility] 06/02 02:33 Order name: Urinalysis w/ reflexes EDMS 06/02 02:33 Order name: CBC with Automated Diff EDMS 06/02 02:33 Order name: CBC with Automated Diff EDMS 06/02 02:33 Order name: Comprehensive Metabolic Panel EDMS 06/02 02:33 Order name: Comprehensive Metabolic Panel EDMS 06/02 02:33 Order name: Magnesium EDMS 06/02 02:33 Order name: Magnesium EDMS 06/02 02:33 Order name: Phosphorus EDMS 06/02 02:33 Order name: Phosphorus EDMS 06/01 21:49 Order name: XRAY Chest (1 view); Complete Time: 23:36 [facility] 06/02 02:35 Order name: [facility] EDSC 06/01 21:49 Order name: EKG; Complete Time: 21:50 jb4 06/01 21:49 Order name: Cardiac monitoring; Complete Time: 22:42 jb4 06/01 21:49 Order name: EKG - Nurse/Tech; Complete Time: 23:45 jb4 06/01 21:49 Order name: O2 Per Protocol; Complete Time: 22:42 jb4 06/01 21:49 Order name: O2 Sat Monitoring; Complete Time: 22:42 jb4 Administered Medications: No medications were administered Disposition Summary: 06/02/23 02:28 Hospitalization Ordered Notes: Hospitalization Status: Observation kdr Provider: Pop Maguire Location: Telemetry/MedSurg (observation) kdr Condition: Fair kdr Problem: new kdr Symptoms: have improved kdr Bed/Room Type: Standard kdr Room Assignment: [facility](06/02/23 03:12) kmf Diagnosis - Chest pain, unspecified kdr - COPD/ Chronic obstructive pulmonary disease, unspecified kdr - Hypertensive heart disease without heart failure kdr Forms: - Medication Reconciliation Form kdr - SBAR form kdr - Leadership Thank You Letter kdr Signatures: Dispatcher [employer] EDMS Quinn Petersen MD MD kdr Aly Ndiaye RN RN julia4 Shey Ramirez kmf Ze Jiménez 4 Corrections: (The following items were deleted from the chart) 03:12 02:28 kdr kmf
--- NOTE | 2023-06-02 02:51 | P.HP ---
Certification for Inpatient Patient admitted to: Observation With expected LOS: <2 Midnights Practitioner: I am a practitioner with admitting privileges, knowledge of patient current condition, hospital course, and medical plan of care. Services: Services provided to patient in accordance with Admission requirements found in Title 42 Section 412.3 of the Code of Federal Regulations Patient History Date of Service: 06/02/23 Reason for admission: Chest pain History of Present Illness: 72-year-old female with a history of COPD on 1 L home oxygen, CKD stage III, hypothyroidism, diabetes mellitus, hypertension and decreased mobility Presented to the ED with acute onsets of left-sided chest pain described as tingling and stabbing, nonradiating associated with dizziness that started 2 days ago. Patient has limited mobility, so her symptoms occurred at rest. However today chest pain worsened so she presented to the ED. She denies any fever, cough, shortness of breath. There was no nausea or diaphoresis. On arrival to the ED her vital signs were within normal limits. Labs remarkable for WBC 12.7k, H&H 11/33 and BUN/Cr 20/1.36 which is about her baseline. EKG and troponin were negative. Chest x-ray no acute findings. Allergies No Known Allergies Allergy (Verified 05/10/22 11:45) Home Medications: Amlodipine Besylate/Benazepril [Amlodipine-Benazepril 10-40 mg] 1 each PO DAILY 05/10/22 Atorvastatin Calcium 40 mg PO DAILY 05/10/22 Esomeprazole Mag Trihydrate [Nexium] 40 mg PO DAILY 05/10/22 Hydrocodone Bit/Acetaminophen [Hydrocodon-Acetaminoph 7.5-325] 1 tab PO TID PRN 05/10/22 Levothyroxine Sodium 100 mcg PO BEDTIME 05/10/22 Pioglitazone HCl [Actos] 15 mg PO DAILY 05/10/22 Spironolactone 25 mg PO DAILY 05/10/22 Albuterol Sulfate [Albuterol Sulfate Hfa] 2 puff IH Q6H PRN 30 Days #1 inh 10/01/22 levoFLOXacin [Levaquin*] 500 mg PO DAILY 7 Days #7 tab 10/01/22 predniSONE [Prednisone*] 20 mg PO BIDL 4 Days #8 tab 10/01/22 - Past Medical/Surgical History Diabetic: No -: Hypertension -: COPD -: DM 2 -: Obesity -: Hypothyroidism -: GERD -: Hyperlipidemia -: Appendectomy -: Hysterectomy -: Cholecystectomy Psychosocial/ Personal History: Patient lives at home with her daughter. - Family History Mother -: Cancer - Social History Alcohol use: No CD- Drugs: No Caffeine use: Yes Review of Systems 10-point ROS is otherwise unremarkable Physical Examination - Vital Signs Temperature: 98.3 F Blood Pressure: 134/78 Pulse: 89 Respirations: 16 Pulse Ox (%): 96 (1 L) - Physical Exam General: Alert, In no apparent distress, Oriented x3 HEENT: Atraumatic, Normocephalic, Mucous membr. moist/pink Neck: Supple, JVD not distended Respiratory: Clear to auscultation bilaterally, Normal air movement Cardiovascular: No edema, Abnormal S1 S2 (2+ JOHN) Gastrointestinal: Normal bowel sounds, Soft and benign, Non-distended, No tenderness Musculoskeletal: No swelling, No erythema, No tenderness Integumentary: No rashes Neurological: Normal speech, Normal strength at 5/5 x4 extr, Sensation intact - Studies Laboratory Data (last 24 hrs) 06/01/23 06/01/23 23:15 23:15 WBC 12.70 H Hgb 11.0 L Hct 33.0 L Plt Count 227 Sodium 136 Potassium 4.1 BUN 20 H Creatinine 1.36 H Glucose 129 H Assessment and Plan - Plan Chest pain Monitor on telemetry Nuclear medicine stress test Continue statin Start aspirin COPD on 1 L home oxygen Not in exacerbation As needed nebulizer CKD stage III Stable renal function, at baseline GERD on PPI Hypertension takes Amlodipine/Benazepril Hypothyroidism on levothyroxine - Advance Directives Does patient have a Living Will: No Does patient have a Durable POA for Healthcare: No
[2023-06-02] MEDS ORDERED: ALBUTEROL 2.5 MG/3 ML NEB SOL NEB PRN (02:59)
[2023-06-02 05:55] VITALS: BMI 35.7
[2023-06-02] MEDS: PANTOPRAZOLE 40MG TABLET PO SCH ×2 (07:30→16:35)
[2023-06-02] MEDS ORDERED: INFLUENZA VACCINE (for 6+ mo) 0.5 ML DOSE IMVAC ONE (08:00)
[2023-06-02 08:51] VITALS: O2SAT 98
[2023-06-02] MEDS ORDERED: ENOXAPARIN 40 MG/0.4 ML SQ SCH (09:00)
[2023-06-02] MEDS ORDERED: ASPIRIN EC 81 MG TAB PO SCH (09:00)
[2023-06-02 10:07] VITALS: BP 138/90; TEMP 97
[2023-06-02] MEDS ORDERED: REGADENOSON 0.4 MG/5 ML SYR IV ONE (10:12)
--- NOTE | 2023-06-02 13:29 | RAD REPORT ---
EXAM DESCRIPTION: NM - Rest Stress Cardiac Imaging - 06/02/2023 10:40 am CLINICAL HISTORY: chest pain COMPARISON: No comparisons TECHNIQUE: The patient was administered approximately 10.1 mCi of Tc 99m Sestamibi prior to resting SPECT imaging of the heart. The patient was then administered approximately 30.3 mCi of Tc 99m Sestam ibi following exercise or pharmacologic stress. Multiplanar SPECT images were reviewed. FINDINGS: Small focus of reversible defect involving the mid segment anterior wall. No fixed defect is seen to suggest hibernating myocardium or scarred myocardium. The end diastolic volume is 48 ml, the end systolic volume is 11 ml, and the ejection fraction is 78 %. IMPRESSION: Small focus of reversible defect involving the mid segment of the anterior wall, concern ing for a region of ischemia in the LAD distribution. Reduced end systolic volume, correlate with presence of long-standing hypertension. Left ventricular ejection fraction 78%.
--- NOTE | 2023-06-02 15:30 | P.PN ---
Date of Service: 06/02/23 Amna is hemodynamically stable, troponin 6.7 with serial pending. Abnormal stress test today. Dr. Ramos has been consulted, He will evaluate the patient and provide recommendations.
--- NOTE | 2023-06-02 16:12 | P.DS ---
Admission Date: 06/02/23 Discharge Date: 06/02/23 Disposition: DC HOME/HOME HEALTH CARE Reason for Admission: Chest pain Brief History of Present Illness: Diagnosis Chest pain r/o ACS COPD CKD stage III HPI 06/02/23 72-year-old female with a history of COPD on 1 L home oxygen, CKD stage III, hypothyroidism, diabetes mellitus, hypertension and decreased mobility Presented to the ED with acute onsets of left-sided chest pain described as tingling and stabbing, nonradiating associated with dizziness that started 2 days ago. Patient has limited mobility, so her symptoms occurred at rest. However today chest pain worsened so she presented to the ED. She denies any fever, cough, shortness of breath. There was no nausea or diaphoresis. On arrival to the ED her vital signs were within normal limits. Labs remarkable for WBC 12.7k, H&H 11/33 and BUN/Cr 20/1.36 which is about her baseline. EKG and troponin were negative. Chest x-ray no acute findings. Hospital Course: Amna Lundberg is a pleasant 72 year old female with a past medical history significant for COPD on 1 L home oxygen, CKD stage III, hypothyroidism, diabetes mellitus, hypertension and decreased mobilitywho was admitted to the [facility] on 06/02/23 for Chest pain r/o ACS. Amna Biggs presented to the ED with complaints of left-sided chest pain described as tingling and stabbing, nonradiating associated with dizziness that started 2 days ago. Troponin and EKG were negative. Abnormal stress test today. Dr. Ramos consulted and has recommended outpatient follow-up on 06/05/2023. Continue with aspirin 81 mg daily. Amna reports chest pain has improved but is still intermittent, tolerating p.o. diet, on room air, hemodynamically stable and ready for discharge. On 06/02/23, Amna was seen on morning rounds and deemed medically stable for discharge. Amna was discharged with instructions to schedule follow-up appointments with Dr. Ramos on Monday (06/05) and PCP. The patient was given the opportunity to ask questions and reported no further questions. Furthermore, all questions were answered to the best of my ability. A copy of this discharge summary will be sent to the above providers to facilitate continuity of care. Today, I personally spent 50 minutes with Amna, of which greater than 50% of the time was spent in patient education, counseling, and coordination of care as described above. Physical Exam General: AAOx3, In no apparent distress, obese HEENT: Atraumatic, Normocephalic, Mucous membr. moist/pink Neck: Supple, JVD not distended Respiratory: Clear to auscultation bilaterally, Normal air movement, symmetrical chest wall move Cardiovascular: No edema, Abnormal S1 S2 (2+ JOHN), systolic murmur Gastrointestinal: Normal bowel sounds, Soft and benign on palpation, NT/ND Musculoskeletal: No swelling, No erythema, No tenderness Integumentary: No rashes Neurological: Normal speech, Normal strength at 5/5 x4 extr, Sensation intact Vital Signs/Physical Exam: Temp Pulse Resp BP Pulse Ox 97.0 F 74 17 138/90 98 06/02/23 08:00 06/02/23 08:00 06/02/23 08:00 06/02/23 08:00 06/02/23 08:00 Laboratory Data at Discharge: WBC 12.70 thou/uL (4.3-10.9) H 06/01/23 23:15 Hgb 11.0 g/dL (12.0-15.0) L 06/01/23 23:15 Hct 33.0 % (36.0-45.0) L 06/01/23 23:15 Plt Count 227 thou/uL (152-406) 06/01/23 23:15 Sodium 136 mEq/L (136-145) 06/01/23 23:15 Potassium 4.1 mEq/L (3.5-5.1) 06/01/23 23:15 BUN 20 mg/dL (7-18) H 06/01/23 23:15 Creatinine 1.36 mg/dL (0.55-1.02) H 06/01/23 23:15 Glucose 129 mg/dL (74-106) H 06/01/23 23:15 Home Medications: Amlodipine Besylate/Benazepril [Amlodipine-Benazepril 10-40 mg] 1 each PO DAILY 05/10/22 Atorvastatin Calcium 40 mg PO DAILY 05/10/22 Esomeprazole Mag Trihydrate [Nexium] 40 mg PO DAILY 05/10/22 Levothyroxine Sodium 100 mcg PO BEDTIME 05/10/22 Pioglitazone HCl [Actos] 15 mg PO DAILY 05/10/22 Spironolactone 25 mg PO DAILY 05/10/22 Albuterol Sulfate [Albuterol Sulfate Hfa] 2 puff IH Q6H PRN 30 Days #1 inh 10/01/22 predniSONE [Prednisone*] 20 mg PO BIDL 4 Days #8 tab 10/01/22 Physician Discharge Instructions: Amna Biggs presented to the ED with complaints of left-sided chest pain described as tingling and stabbing, nonradiating associated with dizziness that started 2 days ago. Troponin and EKG were negative. Abnormal stress test today. Dr. Ramos consulted and has recommended outpatient follow-up on 06/05/2023. Continue with aspirin 81 mg. 1. Please call and schedule a follow-up appointment with your PCP in 3-5 days - Please follow-up with your PCP for medication refills/adjustments 2. Please call and schedule a follow-up appointment with Dr. Ramos on Monday06/05/23 3. Heart healthy diet 4. Activity restriction, remain calm as to not raise heart rate or demand of the heart 5. Return to the ED if symptoms worsen 6. No new prescriptions this admission Diet: AHA Activity: Ad shana Followup: NONE,NONE [Primary Care Provider] - Victoriano Ramos MD [ACTIVE - CAN ADMIT] - Time spent managing pt's care (in minutes): 50
--- NOTE | 2023-06-02 18:42 | CON ---
Date of Consultation: 06/02/2023 Reason For Consultation: Abnormal stress test and chest pain. History Of Present Illness: 72-year-old female, history of COPD on oxygen, stage 3 chronic kidney di sease, hypothyroidism, diabetes, presented with sharp chest pain, stabbing like, lasted for few secon ds and goes away. Last time, she had chest pain was yesterday. She had a stress test that showed sm all area of reversible ischemia in the anterior leads and anterior wall, but she has been resting and had no further episodes of chest pain. Past Medical History: As outlined above in the HPI. Medications: Refer to reconciliation sheet for detailed list. Allergies: NO KNOWN DRUG ALLERGIES. Family History: No premature coronary artery disease or cancer. Social History: She does not smoke or drink. Does not use any drugs. Review of Systems: All systems reviewed and they were negative except as mentioned in the HPI. Physical Examination: Vital Signs: Reviewed. Head and Neck: Pupils are equal, reactive to light. Intact eye movements. No JVD. No cervical lym phadenopathy. Neck is supple. Thyroid is not enlarged. Lungs: Clear to auscultation bilaterally. No rhonchi, wheezing, crackles. No accessory muscle use. Heart: Regular rate and rhythm. No extra sounds. Abdomen: Soft, nontender. Bowel sounds positive. No organomegaly. No masses or hernia. No rigidi ty or rebound. Extremities: No edema, clubbing, or cyanosis. Intact pulses. Skin: No rash or nodule. Neurologic: Alert, awake, oriented x3. No acute focal deficits appreciated. Investigations: BUN 20, creatinine 1.36, and hemoglobin is 11. Assessment And Recommendations: 1.Chest pain. First set of cardiac enzyme is negative. Obtain a second set. If it is negative, pablo han can be released and we will plan for outpatient coronary angiogram. She is to see me on Monday in the office and we will arrange for that, but check a second set of cardiac enzymes before dischar ge. 2.Dyslipidemia. Continue atorvastatin and baby aspirin. 3.Chronic kidney disease. Creatinine is borderline. This issue to be monitored. SR/MODL Voice ID: [id number] Report ID: [id number]
--- NOTE | 2023-06-05 07:20 | TREADPHA ---
DX: CHEST PAIN Date of Study: 06/02/2023 Ht: 5' 3 " Wt: 202 lb 0 oz Consulting Physician: TANNER MEDICATIONS: TYLENOL, PROVENTIL, ASPIRIN, LOVENOX, ZOFRAN HISTORY: HYPERTENSION, HYPERTHYROID, FORMER SMOKER, NO ALCOHOL OR DRUG USE. PHYSICIAL EXAMINATION: RESTING B.P.: 119/52 RESTING H.R.: 75 RESTING EKG: NORMAL SINUS RHYTHM, WITHIN NORMAL LIMITS PROTOCOL: PHARMACOLOGIC EXERCISE TIME: 3:30 B.P. AT PEAK STRESS: 144/51 IMPRESSION: LEXISCAN INJECTED. CARDIOLITE INJECTED - SEE NUCLEAR MEDICINE REPORT. NO CHEST PAIN. NO ARRHYTHMIA. NO VENTRICULAR TACHCARDIA. NO SUPRAVENTRICULAR TACHYCARDIA. NO ELECTROCARDIOGRAM CHANGES OF ISCHEMIA WITH LEXISCAN.
== END 2023-06-02 17:28 | disposition home or self-care (01) ==
LOC: ER 21:26 → 2ND 06-02 02:24
PROVIDERS: ADMIT Internal Medicine; ATTEND Internal Medicine
DX: R07.9 Chest pain, unspecified (principal); J44.9 Chronic obstructive pulmonary disease, unspecified; E11.22 Type 2 diabetes mellitus with diabetic chronic kidney disease; I12.9 Hypertensive chronic kidney disease with stage 1 through stage 4 chronic kidney disease, or unspecified chronic kidney disease; N18.30 Chronic kidney disease, stage 3 unspecified; E78.5 Hyperlipidemia, unspecified; E03.9 Hypothyroidism, unspecified; K21.9 Gastro-esophageal reflux disease without esophagitis; Z79.899 Other long term (current) drug therapy; Z99.81 Dependence on supplemental oxygen
CPT/HCPCS: 93017; 85025; 81001; 80048; 36415; 84484; 71045; 78452; J2785; J1650; A9500; 93005; G0378

== ENCOUNTER 2023-07-06 07:50 | Day surgery (SDC) | payer OTHER ==
--- NOTE | 2023-06-28 11:23 | RAD REPORT ---
EXAM DESCRIPTION: Rashid Burns And Aby (2 Views)06/28/2023 11:17 am CLINICAL HISTORY: Preop for cardiac catheterization. Hypertension COMPARISON: May 2023 FINDINGS: The lungs appear clear of acute infiltrate. The heart is normal size IMPRESSION: No acute abnormalities displayed
[2023-06-28 11:29] LABS: Absolute Basophils 0.1 K/uL (0-0.5); Basophils % 0.4 % (0-1.3); Hematocrit 35.9 % (36.0-45.0); Lymphocytes % 12.7 % (15.3-44.8); MCV 88.1 fL (80-100); MPV 8.2 fL (7.6-11.3); Platelets 245 thou/uL (152-406); RBC Red Blood Cell Count 4.07 M/uL (3.86-4.86)
[2023-06-28 11:47] LABS: Protime INR 1.05
[2023-06-28 11:50] LABS: Anion Gap 12.1 mEq/L (5.0-15.0); Potassium 5.1 mEq/L (3.5-5.1)
--- NOTE | 2023-06-29 16:09 | EKG ---
Test Date: 2023-06-28 Test Time: 11:48:34 [facility] [employer] Care: NIDIA MEASUREMENT RESULTS: Intervals: Rate: 90 [place]: 150 QRSD: 84 QT: 362 QTc: 442 Ashley: P: 71 KY: 150 QRS: 24 T: 77 INTERPRETIVE STATEMENTS: Normal sinus rhythm RSR' or QR pattern in V1 suggests right ventricular conduction delay Borderline ECG Compared to ECG 06/01/2023 23:42:34 RSR' in V1 or V2 now present Incomplete right bundle-branch block no longer present Electronically Signed On 06-29-23 16:05:05 [employer] by Victoriano Ramos
[2023-07-06] MEDS ORDERED: NA CHLORIDE 0.9% 0 ML ONE (07:56)
== END 2023-07-06 08:49 | disposition home or self-care (01) ==
LOC: CCL 07:50
PROVIDERS: ATTEND Internal Medicine Interventional Cardiology
DX: I25.10 Atherosclerotic heart disease of native coronary artery without angina pectoris (principal); Z53.8 Procedure and treatment not carried out for other reasons
CPT/HCPCS: 36415; 71046; 80048; 85025; 85610; 85730; 93005; J7040

== ENCOUNTER 2023-07-06 08:58 | Observation (INO) | payer OTHER ==
--- OUTSIDE RECORDS SUMMARY | 2023-07-06 09:02 | XMS REPORT | Continuity of Care Document ---
Author Name Unknown Address [address] [place] [address] [facility] thconnect Address [address] [place] [address] Care Team Providers Care Senior Landscape Architect Name Role Phone PCP, PATIENT DOES NOT HAVE A Primary Care Physic marty Roland RN, Jackie Zelaya Attending Clinician [phone] Derik Mohamud MD Attending Clinician [phone] Chadwick Mckenna DO Attending Clinician [phone] Casey Nowak MD Attending Clinician [phone] CHADWICK MCKENNA Attending Clinician Unavailable Casey Nowak MD Admitting Clinician [phone] CASEY NOWAK Admitting Clinician Unavailable Payers Payer Name Policy Type Policy Number Effective Date Expirati on Date Source Problems Condition Name Condition Details Condition Category Status Onset Date Resolution Date Last Treatment Date Treating Clinician Comments Source E44.0 Moderate protein calorie malnutriti on E44.0 Moderate protein calorie malnutriti on Disease Active 07-01 00:00: 00 [facility] Nausea and vomiting, unspecifie d vomiting type Nausea and vomiting, unspecifie d vomiting type Disease Active 06-30 00:00: 00 [facility] 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 Utility [facility] Allergies, Adverse Reactions, Alerts Allergy Name Allergy Type Status Severity Reaction(s) Onset Date Inactive Date Treating Clinician Comments Source NO KNOWN ALLERGIE S Drug Class Active [facility] Social History Social Habit Start Date Stop Date Quantity Comments Source History of tobacco use Cigarette Smoker [facility] History SDOH Social Connections Get Together [facility] History SDOH Social Connections [facility] History SDOH Social Connections Membership [facility] History SDOH Social Connections Meetings [facility] History SDOH Social Connections [facility] Tobacco use and exposure 2022-06-30 00:00:00 2022-06-30 00:00:00 Smokeless tobacco non-user [facility] History SDOH Alcohol Frequency 2022-06-30 00:00:00 2022-06-30 00:00:00 1 [facility] History SDOH Alcohol Std Drinks 2022-06-30 00:00:00 2022-06-30 00:00:00 0 [facility] History SDOH Alcohol Binge 2022-06-30 00:00:00 2022-06-30 00:00:00 1 [facility] History SDOH Social Connections Phone 2022-06-30 00:00:00 2022-06-30 00:00:00 5 [facility] History SDOH Physical Activity DPW 2022-06-30 00:00:00 2022-06-30 00:00:00 0 [facility] History SDOH Physical Activity MPS 2022-06-30 00:00:00 2022-06-30 00:00:00 0 [facility] History SDOH Financial 2022-06-30 00:00:00 2022-06-30 00:00:00 5 [facility] History SDOH Food Worry 2022-06-30 00:00:00 2022-06-30 00:00:00 1 [facility] History SDOH Food Scarcity 2022-06-30 00:00:00 2022-06-30 00:00:00 1 [facility] History SDOH Transport Med 2022-06-30 00:00:00 2022-06-30 00:00:00 2 [facility] History SDOH Transport Non-Med 2022-06-30 00:00:00 2022-06-30 00:00:00 2 [facility] Tobacco Comment 2022-06-30 00:00:00 2022-06-30 00:00:00 Quit 45 years ago [facility] Exposure to SARS-CoV-2 (event) 2022-06-19 00:00:00 2022-06-29 18:20:00 Not sure [facility] Sex Assigned At 1950 00:00:00 1950 00:00:00 [facility] Smoking Status Start Date Stop Date Source Ex-smoker 2022-06-30 00:00:00 2022-06-30 00:00:00 [facility] n[facility] Medications Ordered Medication Name Filled Medication Name Start Date Stop Date Current Medication? Ordering Clinician Indication Dosage Frequency Signature (SIG) Comments Components Source cholecalcif soraya, vitamin D3, 25 mcg (1,000 unit) tablet 07-04 00:00: 00 08-04 04:59 :00 No [id number] 1000U Take 1 tablet by mouth in the morning for 30 days. [facility] zinc sulfate 50 mg zinc (220 mg) capsule 07-04 00:00: 00 08-04 04:59 :00 No [id number] 50mg Take 1 capsule by mouth in the morning for 30 days. [facility] cholecalcif soraya, vitamin D3, 25 mcg (1,000 unit) tablet 07-04 00:00: 00 08-04 04:59 :00 No [id number] 1000U Take 1 tablet by mouth in the morning for 30 days. [facility] zinc sulfate 50 mg zinc (220 mg) capsule 07-04 00:00: 00 08-04 04:59 :00 No [id number] 50mg Take 1 capsule by mouth in the morning for 30 days. [facility] ondansetron (ZOFRAN) 4 mg tablet 07-03 16:44: 51 Yes 4mg Take 4 mg by mouth in the morning and 4 mg in the evening. [facility] pantoprazol e sodium (PANTOPRAZO LE ORAL) 07-03 16:44: 51 Yes 40mg Take 40 mg by mouth daily. [facility] HYDROcodone -acetaminop hen 7.5-325 mg per tablet 07-03 16:44: 51 Yes 1{tbl} Take 1 tablet by mouth every 8 (eight) hours as needed for Pain. [facility] esomeprazol e magnesium (NEXIUM ORAL) 07-03 16:44: 51 Yes 40mg Take 40 mg by mouth daily. [facility] atorvastati n (LIPITOR) 40 mg tablet 07-03 16:44: 51 Yes 40mg Take 40 mg by mouth at bedtime. [facility] amLODIPine- benazepriL 10-40 mg per capsule 07-03 16:44: 51 Yes 1{capsu le} Take 1 capsule by mouth in the morning. [facility] SERTraline 100 mg tablet 07-03 16:44: 51 Yes 100mg Take 100 mg by mouth in the morning. [facility] Levothyroxi ne 100 mcg capsule 07-03 16:44: 51 Yes Take by mouth daily. [facility] spironolact one (ALDACTONE) 25 mg tablet 07-03 16:44: 51 Yes 25mg Take 25 mg by mouth in the morning. [facility] ondansetron (ZOFRAN) 4 mg tablet 07-03 16:44: 51 Yes 4mg Take 4 mg by mouth in the morning and 4 mg in the evening. [facility] pantoprazol e sodium (PANTOPRAZO LE ORAL) 07-03 16:44: 51 Yes 40mg Take 40 mg by mouth daily. [facility] HYDROcodone -acetaminop hen 7.5-325 mg per tablet 07-03 16:44: 51 Yes 1{tbl} Take 1 tablet by mouth every 8 (eight) hours as needed for Pain. [facility] esomeprazol e magnesium (NEXIUM ORAL) 07-03 16:44: 51 Yes 40mg Take 40 mg by mouth daily. [facility] atorvastati n (LIPITOR) 40 mg tablet 07-03 16:44: 51 Yes 40mg Take 40 mg by mouth at bedtime. [facility] amLODIPine- benazepriL 10-40 mg per capsule 07-03 16:44: 51 Yes 1{capsu le} Take 1 capsule by mouth in the morning. [facility] SERTraline 100 mg tablet 07-03 16:44: 51 Yes 100mg Take 100 mg by mouth in the morning. [facility] Levothyroxi ne 100 mcg capsule 07-03 16:44: 51 Yes Take by mouth daily. [facility] spironolact one (ALDACTONE) 25 mg tablet 07-03 16:44: 51 Yes 25mg Take 25 mg by mouth in the morning. [facility] nirmatrelvi r-ritonavir (PAXLOVID, EUA,) 150-100 mg tablet 07-03 09:58: 51 07-03 00:00 :00 No 2{tbl} Take 2 tablets by mouth 2 (two) times daily. [facility] ascorbic acid, vitamin C, 500 mg tablet 07-03 00:00: 00 08-03 04:59 :00 No [id number] 500mg Take 1 tablet by mouth in the morning and 1 tablet in the evening. Do all this for 30 days. [facility] ascorbic acid, vitamin C, 500 mg tablet 07-03 00:00: 00 08-03 04:59 :00 No [id number] 500mg Take 1 tablet by mouth in the morning and 1 tablet in the evening. Do all this for 30 days. [facility] levoFLOXaci n 750 mg tablet 07-03 00:00: 00 07-07 05:59 :00 No [id number] 750mg Take 1 tablet by mouth every 48 (forty-eig ht) hours for 3 days. [facility] levoFLOXaci n 750 mg tablet 07-03 00:00: 00 07-07 05:59 :00 No [id number] 750mg Take 1 tablet by mouth every 48 (forty-eig ht) hours for 3 days. [facility] alum-mag hydroxide-s imeth (MAALOX PLUS / MAG-AL PLUS) 200-200-20 mg/5 mL suspension 30 mL 07-02 01:23: 14 Yes 30mL 30 mL, Oral, Q6HPRN, Starting on Mon07/01/22 at 1923, Until Discontinu ed, Routine, Indigestio n, Heartburn [facility] pantoprazol e (PROTONIX) EC tablet 40 mg 06-30 23:45: 00 Yes 40mg 40 mg, Oral, DAILY, First dose on Mon06/30/22 at 1745, Until Discontinu ed, Routine [facility] heparin (porcine) injection 5,000 Units 06-30 20:00: 00 Yes 5000U 5,000 Units, Subcutaneo us, Q8H, First dose on Mon06/30/22 at 1400, Until Discontinu ed, Routine [facility] zinc sulfate (ORAZINC) capsule 50 mg 06-30 15:00: 00 Yes 50mg 50 mg, Oral, DAILY, First dose (after last modificati on) on Mon06/30/22 at 0900, Until Discontinu ed, Routine [facility] cholecalcif soraya (vitamin D3) tablet 1,000 Units 06-30 15:00: 00 Yes 1000U 1,000 Units, Oral, DAILY, First dose on Mon06/30/22 at 0900, Until Discontinu ed, Routine [facility] dexamethaso ne sod phos PF injection 6 mg 06-30 15:00: 00 07-01 14:59 :35 No 6mg 6 mg, Slow IV Push, DAILY, First dose on Mon06/30/22 at 0900, Until Discontinu ed, 1 mL [facility] levoFLOXaci n in D5W (LEVAQUIN) 750 mg/150 [...] Abdominal< br>Duratio n of therapy: 5 days [facility] codeine-gua ifenesin (ROBITUSSIN AC) 10-100 mg/5 mL oral solution 5 mL 06-30 14:00: 58 Yes 5mL 5 mL, Oral, Q4HPRN, Starting on Mon06/30/22 at 0800, Until Discontinu ed, Routine, Cough [facility] ascorbic acid (vitamin C) (VITAMIN C) tablet 500 mg 06-30 14:00: 00 Yes 500mg 500 mg, Oral, BID, First dose on Mon06/30/22 at 0800, Until Discontinu ed, Routine [facility] albuterol-i pratropium (COMBIVENT RESPIMAT) 20-100 mcg/actuati on inhaler 1 Puff 06-30 14:00: 00 Yes 1{puff} 1 Puff, Inhalation , QID, First dose on Mon06/30/22 at 0800, Until Discontinu ed, Routine
Is this order for a patient with suspected or confirmed COVID-19 infection? Yes [facility] albuterol (VENTOLIN) inhaler 2 Puff 06-30 13:17: 10 Yes 2{puff} 2 Puff, Inhalation , Q4HPRN, Starting on Mon06/30/22 at 0717, Until Discontinu ed, Routine, Wheezing, Shortness of Breath, Bronchospa sm, Chest tightness [facility] NaCl 0.9% (NS) 1000 mL + KCL 40 mEq 06-30 06:45: 00 07-01 15:58 :01 No IV Infusion, at 150 mL/hr, CONTINUOUS , Starting on Mon06/30/22 at 0045, Until Mon07/01/22 at 0958, ISELA [facility] acetaminoph en ADULT (OFIRMEV) injection 1,000 mg 06-30 06:45: 00 06-30 06:41 :00 No 1000mg 1,000 mg, IV Infusion, at 400 mL/hr Administer over 15 Minutes, ONCE, 1 dose, On Mon06/30/22 at 0045, Routine
Indicatio n: Perioperat adiel Patient [facility] cefTRIAXone (ROCEPHIN) 1,000 mg in NaCl 0.9% (NS) 100 mL MINI-BAG 06-30 06:30: 00 06-30 06:55 :00 No 1000mg 1,000 mg, IV Piggyback, ONCE, 1 dose, On Mon06/30/22 at 0030, Administer over 30 Minutes, 100 mL
Reas on for Anti-Infec tive: Documented Infection< br>Documen camron Infection Site: Urine
D uration of Therapy: Other (see Comments) [facility] ondansetron (ZOFRAN (PF)) injection 4 mg 06-30 06:22: 11 Yes 4mg 4 mg, Slow IV Push, Q6HPRN, Starting on Mon06/30/22 at 0022, Until Discontinu ed, Routine, Nausea and Vomiting (N/V) [facility] traMADoL (ULTRAM) tablet 50 mg 06-30 06:22: 06 07-02 06:21 :06 No 50mg 50 mg, Oral, Q8HPRN, Starting on Bijal 06/30/22 at 0022, Until 07/02/22 at 0021, Routine, Pain (scale 4-6) [facility] acetaminoph en (TYLENOL) tablet 650 mg 06-30 06:22: 03 Yes 650mg 650 mg, Oral, Q6HPRN, Starting on Mon06/30/22 at 0022, Until Discontinu ed, Routine, Pain (scale 1-3) [facility] FENTanyl PF (SUBLIMAZE (PF)) injection 25 mcg 06-30 06:00: 00 06-30 06:13 :00 No 25ug 25 mcg, Slow IV Push, ONCE, 1 dose, On Bijal 06/30/22 at 0000, STAT [facility] famotidine (PEPCID (PF)) injection 20 mg 06-30 01:45: 00 06-30 03:50 :00 No 20mg 20 mg, Slow IV Push, ONCE NOW, 1 dose, On Mon06/29/22 at 1945, ISELA [facility] NaCl 0.9% (NS) bolus infusion 1,000 mL 06-30 01:30: 00 06-30 05:46 :00 No 1000mL at 999 mL/hr, 1,000 mL, IV Piggyback, ONCE, 1 dose, On Mon06/29/22 at 1930, STAT [facility] ondansetron (ZOFRAN (PF)) injection 8 mg 06-30 00:45: 00 06-30 03:49 :00 No 8mg 8 mg, Slow IV Push, ONCE, 1 dose, On Mon06/29/22 at 1845, ISELA [facility] RAMELTEON 8 MG ORAL TAB 08-02 00:00: 00 Yes 1 Tab Oral QHS [facility] MIRTAZAPINE 30 MG ORAL TAB 08-02 00:00: 00 Yes Take 1 and 1/2 tab QHS PO [facility] PAROXETINE HCL 20 MG ORAL TAB 08-02 00:00: 00 Yes 1 Tab Oral DAILY [facility] RAMELTEON 8 MG ORAL TAB 08-02 00:00: 00 Yes 1 Tab Oral QHS [facility] MIRTAZAPINE 30 MG ORAL TAB 08-02 00:00: 00 Yes Take 1 and 1/2 tab QHS PO [facility] PAROXETINE HCL 20 MG ORAL TAB 08-02 00:00: 00 Yes 1 Tab Oral DAILY [facility] Vital Signs Vital Name Observation Time Observation Value Comments Mason owen Systolic blood pressure 2022-07-03 21:31:00 136 mm[Hg] [facility] Diastolic blood pressure 2022-07-03 21:31:00 71 mm[Hg] [facility] Heart rate 2022-07-03 21:31:00 [facility] Res[facility] 2022-07-03 21:31:00 18 /min [facility] Oxygen saturation in Arterial blood by Pulse oximetry 2022-07-03 21:31:00 94 /min [facility] Body temperature 2022-07-03 17:19:00 36.22 [place] [facility] Body weight 2022-07-03 10:06:00 99.973 kg [facility] BMI 2022-07-03 10:06:00 39.04 kg/m2 [facility] Body height 2022-06-30 07:26:00 160 cm [facility] Procedures Procedure Date / Time Performed Performing Clinician Source BASIC METABOLIC PANEL (NA, K, CL, CO2, GLUCOSE, BUN, CREATININE, CA) 2022-07-03 12:48:00 Delgado Batista [facility] CBC WITH DIFF 2022-07-03 12:48:00 Delgado Batista [facility] BASIC METABOLIC PANEL (NA, K, CL, CO2, GLUCOSE, BUN, CREATININE, CA) 2022-07-02 12:01:00 Delgado Batista [facility] CBC WITH DIFF 2022-07-02 12:01:00 Delgado Batista [facility] XR CHEST 1 VW 2022-07-01 17:20:52 Delgado Batista [facility] ACUTE CARE VENOUS BLOOD GAS 2022-07-01 16:33:00 Delgado Batista [facility] BASIC METABOLIC PANEL (NA, K, CL, CO2, GLUCOSE, BUN, CREATININE, CA) 2022-07-01 08:35:00 Edionwe, [facility] CBC WITH DIFF 2022-07-01 08:35:00 Santiago [facility] URINE CULTURE 2022-06-30 20:11:00 Delgado Batista [facility] BASIC METABOLIC PANEL (NA, K, CL, CO2, GLUCOSE, BUN, CREATININE, CA) 2022-06-30 15:14:[address] [facility] CBC WITH DIFF 2022-06-30 15:14:00 Santiago [facility] COVID-19 (ID NOW RAPID TESTING) 2022-06-30 10:11:[address] [facility] LAB ONLY COVID INTERPRETATION 2022-06-30 10:11:[address] [facility] CT ABDOMEN PELVIS WO CONTRAST 2022-06-30 05:17:12 Derik Mohamud [facility] URINE DRUG (IMMUNOASSAY) - COMPREHENSIVE DRUG SCREEN 2022-06-30 04:22:00 [facility] 2022-06-30 04:22:00 Derik Mohamud [facility] MAGNESIUM 2022-06-30 03:49:00 Derik Mohamud [facility] COMP. METABOLIC PANEL ([id number]) 2022-06-30 03:49:00 Derik Mohamud [facility] LIPASE 2022-06-30 03:19:00 Derik Mohamud [facility] CBC WITH DIFF 2022-06-30 03:19:00 Derik Mohamud [facility] XR ABDOMEN 2 VW 2022-06-30 01:04:24 Derik Mohamud [facility] NOTICE OF PRIVACY PRACTICES 2022-06-30 00:00:04 Doctor Unassigned, [facility] CONSENT/REFUSAL FOR DIAGNOSIS AND TREATMENT 2022-06-29 23:59:37 Doctor Unassigned, [facility] Encounters Start Date/Time End Date/Time Encounter Type Admission Type Attending Clinicians Care Facility Care Department Encounter ID Source 2023-06-15 17:31:03 2023-06-15 17:31:03 Outpatient [facility] [id number] Conner Pink 2023-05-22 14:56:42 2023-05-22 14:56:42 Outpatient [facility] [id number] Conner Pink 2023-04-04 13:24:54 2023-04-04 13:24:54 Outpatient [facility] [id number] Conner Pink 2023-02-14 16:50:56 2023-02-14 16:50:56 Outpatient [facility] [id number] Conner Pink 2023-01-18 17:10:28 2023-01-18 17:10:28 Outpatient [facility] [id number] Conner Pink 2022-11-28 10:21:37 2022-11-28 10:21:37 Outpatient [facility] [id number] Conner Pink 2022-11-10 15:32:33 2022-11-10 15:32:33 Outpatient [facility] [id number] Conner Pink 2022-09-27 10:38:05 2022-09-27 10:38:05 Outpatient [facility] [id number] Conner Pink 2022-09-16 16:10:40 2022-09-16 16:10:40 Outpatient [facility] [id number] Conner Pink 2022-07-21 08:35:57 2022-07-21 08:35:57 Outpatient [facility] [id number] Conner Pink 2022-07-05 00:00:00 2022-07-05 00:00:00 Transition of Care Jackie Roland PLAMARIBEL ..[id number] [facility] 2022-06-29 18:36:00 2022-07-03 16:40:00 Hospital Encounter Derik Mohamud, Casey Comer [facility] ..[id number] [facility] 2022-06-29 18:36:00 2022-07-03 16:40:00 Inpatient [facility] [id number] [facility] 2022-06-16 16:08:21 2022-06-16 16:08:21 Outpatient [facility] [id number] Conner Pink Results Test Description Test Time Test Comments Results Result Co mments Source TSH, THIRD [id number] 06:16:39* Test Item Value Reference Range Interpretation Comme nts TSH, THIRD GENERATION (test code = 2821) 12.000 UIU/ML 0.400-4.100 H LIPID [id number] 05:36:52* Test Item Value Reference Range Interpretation [...] SPECIMENS. FOR MOREINFORMATION, SEE CLIENT ANNOUNCEMENT AT [email or web address] RATIO LDL/HDL (test code = 2238) 4.17 RATIO <3.22 H COMPREHENSIVE METABOLIC [id number] 05:36:52* Test Item Value Reference Range Interpretation Comme nts GLUCOSE (test code = 2217) 114 MG/DL 70-99 H BUN (test code = 2208) 19 MG/DL 8-23 CREATININE (test code = 2214) 1.39 MG/DL 0.60-1.30 H eGFR (2020 CKD-EPI) (test code = 96730) 41 ML/MIN/1.73 >60 L CALC BUN/CREAT (test code = 2235) 14 RATIO 6-28 SODIUM (test code = 223) 140 MEQ/L 133-146 POTASSIUM (test code = 2228) 4.1 MEQ/L 3.5-5.4 CHLORIDE (test code = 2215) 100 MEQ/L 95-107 CARBON DIOXIDE (test code = 2205) 27 MEQ/L 19-31 CALCIUM (test code = 2208) 9.6 MG/DL 8.5-10.5 PROTEIN, TOTAL (test code = 2228) 6.8 G/DL 6.1-8.3 ALBUMIN (test code = 2200) 4.1 G/DL 3.5-5.2 CALC GLOBULIN (test code = 2239) 2.7 G/DL 1.9-3.7 CALC A/G RATIO (test [...] 16 U/L 9-40 ALT (test code = 9) 13 U/L 5-40 HEMOGLOBIN [id number] 03:19:58* Test Item Value Reference Range Interpretation Comme nts HEMOGLOBIN A1c (test code = 15179) 6.1 % 4.2-5.6 H [employer] GUIDELINES FOR HGB A1C: [...] OR LABORATORY CONSULTATION. CBC W/AUTO DIFF WITH [id number] 02:26:20* Test Item Value Reference Range Interpretation [...] = 1065) 0.0 /100 WBC'S See_Comment [Automated [employer] ge] The system which generated this result [...] 0.00-0.10 ABS NUCLEATED RBCS (test code = 47952) 0.00 K/UL 0.00-0.11 CULTURE, [id number] 16:00:26SPECIMEN NUMBER: [id number] CULTURE, URINE SPECIMEN NUMBER: [id number] SPECIMEN COMMENT: URINE SOURCE: URINE REPORT STATUS: FINAL FINAL REPORT: 07/23/2022 50-100,000 CFU/ML UROGENITAL CONNOR PRESENT NO C [facility] has important pathology staff changes effective 07/06/2022. New pathology staff will provide uninterrupted, excellent patient care and clinical consultation. See URL: [email or web address]. UNLESS OTHERWISE INDICATED, ALL TESTING PERFORMED AT CLINICAL PATHOLOGY [facility]. [address] [place] [address] AGRICULTURAL ENGINEERING TEACHER: JONN MILTON M.D. [place] NUMBER [id number] [facility] [place]. [id number] METABOLIC PANEL (NA, K, CL, CO2, GLUCOSE, BUN, CREATININE, CA)2022-07-02 12:38:20* Test Item Value Reference Range Interpretation Comme nts NA (test code = 5881308880) 136 mmol/L 135-145 K (test code = 4905759540) 4.1 mmol/L 3.5-5.0 CL (test code = 5195752062) 108 mmol/L 98-108 CO2 TOTAL (test code = 7748931030) 21 mmol/L 23-31 L AGAP (test code = 1516126756) 7 2-16 BUN (test code = 2316005724) 13 mg/dL 7-23 GLUCOSE (test code = 9923896128) 87 mg/dL 70-110 CREATININE (test code = 9128889237) 1.50 mg/dL 0.50-1.04 H CALCIUM (test code = 1167244286) 7.5 mg/dL 8.6-10.6 L eGFR (test code = 6537374790) 34.2 mL/min/1.73m2 JOE (test code = JOE) [...] imaging tests). Lab Interpretation (test code = 50278-3) Abnormal [facility] WITH [id number] 12:30:18* Test Item Value Reference Range Interpretation Comme nts WBC (test code = 6690-2) 7.01 See_Comment [Automated [employer]] The system which generated this result transmitted reference range: 4.30 - 11.10 10*3/?L. The reference range was not used to interpret this result as normal/abnormal. RBC (test code = 789-8) 3.28 See_Comment L [Automated messa [employer]] The system which generated this result transmitted [...] g/dL 31.6-35.1 L RDW-SD (test code = 95842-7) 52.1 fL 39.0-49.9 H RDW-CV (test code = 788-0) 16.1 % 12.0-15.5 H PLT (test code = 777-3) 259 See_Comment [Automated [employer]] The system which generated this result transmitted reference range: 166 - 358 10*3/?L. The reference range was not used to interpret this result as normal/abnormal. MPV (test code = 44339-1) 11.6 fL 9.5-12.9 NRBC/100 WBC (test code = 5546860466) 0.0 See_Comment [Automated me ssage] The system which generated this result transmitted reference range: 0.0 - 10.0 /100 WBCs. The reference range was not used to interpret this result as normal/abnormal. NRBC x10^3 (test code = 2214612174) See_Comment [Automated messa ge] The system which generated this result transmitted reference range: 10*3/?L. The reference range was not used to interpret this result as normal/abnormal. GRAN MAT (NEUT) % (test code = 770-8) 65.2 % IMM GRAN % (test code = 8177601881) 1.40 % LYMPH % (test code = 736-9) 22.7 % MONO % (test code = 5905-5) 8.0 % EOS % (test code = 713-8) 2.4 % BASO % (test code = 706-2) 0.3 % GRAN MAT x10^3(ANC) (test code = 6366221331) 4.57 10*3/uL 1.88-7.09 IMM GRAN x10^3 (test code = 5618944034) 0.10 10*3/uL 0.00-0.06 H LYMPH x10^3 (test code = 731-0) 1.59 10*3/uL 1.32-3.29 MONO x10^3 (test code = 742-7) 0.56 10*3/uL 0.33-0.92 EOS x10^3 (test code = 711-2) 0.17 10*3/uL 0.03-0.39 BASO x10^3 (test code = 704-7) 0.01-0.07 Lab Interpretation (test code = 80219-2) [facility]* Test Item Value Reference Range Interpretation Comme nts MAGNESIUM (test code = 6391472498) 1.1 mg/dL 1.7-2.4 L Lab Interpretation (test cod e = 31792-6) [facility] (69137)2022-06-30 04:33:29* Test Item Value Reference Range Interpretation Comme nts NA (test code = 3482168881) 134 mmol/L 135-145 L K (test code = 8190817314) 3.1 mmol/L 3.5-5.0 L CL (test code = 4838894044) 91 mmol/L 98-108 L CO2 TOTAL (test code = 1481159728) 27 mmol/L 23-31 AGAP (test code = 8983640012) 16 2-16 BUN (test code = 6906759995) 16 mg/dL 7-23 GLUCOSE (test code = 1236471939) 89 mg/dL 70-110 CREATININE (test code = 8425688465) 2.12 mg/dL 0.50-1.04 H TOTAL BILI (test code = 3283137605) 0.7 mg/dL 0.1-1.1 CALCIUM (test code = 2199025890) 8.1 mg/dL 8.6-10.6 L T PROTEIN (test code = 7211448047) 7.1 g/dL 6.3-8.2 ALBUMIN (test code = 3123707134) 3.7 g/dL 3.5-5.0 ALK PHOS (test code = 5440285448) 141 U/L 34-122 H ALTv (test code = 1742-6) 13 U/L 5-35 AST(SGOT) (test code = 0793639118) 19 U/L 13-40 eGFR (test code = 2209698451) 23.0 mL/min/1.73m2 JOE (test code = JOE) [...] imaging tests). Lab Interpretation (test code = 70700-1) Abnormal [facility] WITH [id number] 03:27:33* Test Item Value Reference Range Interpretation [...] g/dL 31.6-35.1 L RDW-SD (test code = 45819-6) 48.4 fL 39.0-49.9 RDW-CV (test code = 788-0) 15.6 % 12.0-15.5 H PLT (test code = 777-3) 309 See_Comment [Automated message] The system which generated this result transmitted reference range: 166 - 358 10*3/?L. The reference range was not used to interpret this result as normal/abnormal. MPV (test code = 01190-8) 11.5 fL 9.5-12.9 NRBC/100 WBC (test code = 7998976166) 0.0 See_Comment [Automated message] The system which generated this result transmitted reference range: 0.0 - 10.0 /100 WBCs. The reference range was not used to interpret this result as normal/abnormal. NRBC x10^3 (test code = 9914910266) See_Comment [Automated message] The system which generated this result transmitted reference range: 10*3/?L. The reference range was not used to interpret this result as normal/abnormal. GRAN MAT (NEUT) % (test code = 770-8) 81.3 % IMM GRAN % (test code = 8961377711) 0.50 % LYMPH % (test code = 736-9) 9.8 % MONO % (test code = 5905-5) 7.9 % EOS % (test code = 713-8) 0.3 % BASO % (test code = 706-2) 0.2 % GRAN MAT x10^3(ANC) (test code = 2051184379) 10.17 10*3/uL 1.88-7.09 H IMM GRAN x10^3 (test code = 5506562003) 0.06 10*3/uL 0.00-0.06 LYMPH x10^3 (test code = 731-0) 1.23 10*3/uL 1.32-3.29 L MONO x10^3 (test code = 742-7) 0.99 10*3/uL 0.33-0.92 H EOS x10^3 (test code = 711-2) 0.04 10*3/uL 0.03-0.39 BASO x10^3 (test code = 704-7) 0.03 10*3/uL 0.01-0.07 Lab Interpretation (test code = 63729-3) Abnormal [facility]"
--- NOTE | 2023-07-06 10:02 | RAD REPORT ---
EXAM DESCRIPTION: RADChest Single View07/06/2023 9:30 am CLINICAL HISTORY: CHEST PAIN COMPARISON: Chest Pa And Lat (2 Views) dated 06/28/2023; Chest Single View dated 06/01/2023; Chest Sin gle View dated 09/27/2022; Chest Single View dated 06/17/2022 TECHNIQUE: Portable AP view of the chest. FINDINGS: Decreased inspiratory effort limits evaluation. Mild bibasilar opacities, likely atelectas is. No pneumothorax or effusion. The cardiomediastinal contours are unremarkable. IMPRESSION: No acute cardiopulmonary process.
[2023-07-06] MEDS ORDERED: NITROGLYCERIN 0.4 MG/TAB SL ONE (10:18)
[2023-07-06] MEDS ORDERED: ASPIRIN 81 MG CHEWABLE TABLET ONE (10:18)
[2023-07-06 11:33] LABS: Absolute Eosinophils 0.1 K/uL (0-0.5); Absolute Lymphocytes (CBC) 1.8 K/uL (0.7-4.9); Lymphocytes % 10.4 % (15.3-44.8)
[2023-07-06 11:36] LABS: Absolute Basophils 0.1 K/uL (0-0.5); Basophils % 0.7 % (0-1.3); Eosinophils % 0.6 % (0-4.4); Hematocrit 34.6 % (36.0-45.0); Hemoglobin 11.4 g/dL (12.0-15.0); MCV 86.3 fL (80-100); MPV 8.9 fL (7.6-11.3); Platelets 259 thou/uL (152-406)
[2023-07-06 11:51] LABS: Band Neutrophils 1 % (0-1); Blood Morphology Comment NOT SEEN (NOT SEEN); Platelet Estimate ADEQ
[2023-07-06 12:52] LABS: Specific Gravity 1.028 (1.005-1.030); Transitional Epithelial <5 /HPF (None Seen); Urine Bacteria <20 /HPF (<20); Urine Bilirubin NEGATIVE (Negative); Urine Blood Negative (Negative); Urine Clarity Extremely Turbid (Clear); Urine Color Yellow (Yellow); Urine Glucose NEGATIVE (Negative); Urine Mucus Slight /HPF (None Seen); Urine Protein 1+ (Negative); Urine RBC <5 /HPF (None Seen); Urine Urobilinogen Normal (Normal)
[2023-07-06 14:28] LABS: ALT/SGPT 17 U/L (13-56); AST/SGOT 11 U/L (15-37); Albumin 3.1 g/dL (3.4-5.0); Albumin/Globulin Ratio 0.7 (1.1-1.8); Alkaline Phosphatase 150 U/L (45-117); BUN Blood Urea Nitrogen 29 mg/dL (7-18); Bicarbonate 22 mEq/L (21-32); Bilirubin Direct < 0.1 mg/dL (0-0.2); Bilirubin Indirect, Calculated ND mg/dL (0.2-0.8); Bilirubin Total 0.4 mg/dL (0.2-1.0); Globulin 4.3 g/dL (2.3-3.5); Glomerular Filtration Rate 31 ml/min (=/>90); Glucose Level 99 mg/dL (74-106); Magnesium 1.5 mg/dL (1.6-2.4); Protein, Total 7.4 g/dL (6.4-8.2); Sodium Level 135 mEq/L (136-145)
[2023-07-06 14:55] LABS: Troponin High Sensitivity 6.9 pg/mL (<58.9)
--- NOTE | 2023-07-06 15:18 | EDPHYS ---
Physician Documentation [facility] Name: Amna Lundberg Age: 73 yrs Sex: Female : 1950 Arrival Date: 07/06/2023 Time: 08:58 Bed 17 Private MD: ED Physician Mauricio Salomon HPI: 09:22 This 73 yrs old Female presents to ER via Wheelchair with complaints of Chest Pain. rt 09:22 Patient presents to the ED with chest pain starting last night, has worsened throughout rt the night. Patient was scheduled for an outpatient cardiac catheterization today as she had an abnormal stress test about 1 month ago. Denies other associated symptoms. Pain is aching nature, nonradiating, substernal, no other aggravating or elevating factors.. Historical: - Allergies: :11 No Known Allergies; hb - PMHx: :11 Chronic obstructive lung disease; Chronic pain; depressive disorder; Hypertensive hb disorder; - PSHx: :11 Total abdominal hysterectomy; hb - Immunization history:: Adult Immunizations up to date. - Social history:: Smoking status: Patient denies any tobacco usage or history of. ROS: 09:22 Constitutional: Negative for fever, chills, and weight loss, Respiratory: Negative for rt shortness of breath, cough, wheezing, and pleuritic chest pain, Abdomen/GI: Negative for abdominal pain, nausea, vomiting, diarrhea, and constipation, MS/Extremity: Negative for injury and deformity, Skin: Negative for injury, rash, and discoloration, Neuro: Negative for headache, weakness, numbness, tingling, and seizure, Psych: Negative for depression, anxiety, suicide ideation, homicidal ideation, and hallucinations, 09:22 Cardiovascular: Positive for chest pain, Negative for edema, Exam: 09:22 Constitutional: This is a well developed, well nourished patient who is awake, alert, rt and in no acute distress. Head/Face: Normocephalic, atraumatic. Chest/axilla: Normal chest wall appearance and motion. Nontender with no deformity. No lesions are appreciated. Cardiovascular: Regular rate and rhythm with a normal S1 and S2. No gallops, murmurs, or rubs. Normal PMI, no JVD. No pulse deficits. Respiratory: Lungs have equal breath sounds bilaterally, clear to auscultation and percussion. No rales, rhonchi or wheezes noted. No increased work of breathing, no retractions or nasal flaring. Abdomen/GI: Soft, non-tender, with normal bowel sounds. No distension or tympany. No guarding or rebound. No evidence of tenderness throughout. Skin: Warm, dry with normal turgor. Normal color with no rashes, no lesions, and no evidence of cellulitis. MS/ Extremity: Pulses equal, no cyanosis. Neurovascular intact. Full, normal range of motion. Neuro: Awake and alert, GCS 15, oriented to person, place, time, and situation. Cranial nerves II-XII grossly intact. Motor strength 5/5 in all extremities. Sensory grossly intact. Cerebellar exam normal. Normal gait. Psych: Awake, alert, with orientation to person, place and time. Behavior, mood, and affect are within normal limits. 09:22 ECG was reviewed by the Attending Physician. Vital Signs: 09:10 BP 129 / 97; Pulse 109; Resp 20; Temp 98.1; Pulse Ox 97% on R/A; Pain 5/10; hb 10:24 BP 124 / 89; Pulse 96; Resp 18; Pulse Ox 94% on R/A; ph 12:00 BP 149 / 86; Pulse 98; Resp 18; Pulse Ox 95% on R/A; ph 13:30 BP 122 / 78; Pulse 94; Resp 18; Pulse Ox 95% on R/A; ph 14:51 BP 119 / 68; Pulse 92; Resp 18; Pulse Ox 94% on R/A; ph 16:04 BP 115 / 95; Pulse 95; Resp 18; Pulse Ox 98% on 2 lpm NC; ph 09:10 Pain Scale: Adult hb MDM: 09:07 Patient medically screened. rt 15:42 Differential diagnosis: ACS, unstable angina, pneumonia. HEART Score: History: Highly rt Suspicious (2), ECG: Non specific repolarization disturbance / LBTB / PM (1), Age: > or = 65 years (2), Risk Factors: > or = 3 Risk factors for atherosclerotic disease (2), Troponin: < or = 1 x Normal Limit (0), Total Score = 7. The patient was given aspirin in the Emergency Department. Data reviewed: vital signs, nurses notes, lab test result(s), EKG, radiologic studies. Consideration of Admission/Observation Escalation of care including admission/observation considered. Consideration of Admission/Observation Patient was admitted/placed on observation. Management of patient was discussed with the following: Return Clerk: Will perform cardiac catheterization during hospitalization. I considered the following discharge prescriptions or medication management in the emergency department Medications were administered in the Emergency Department. See MAR. Independent interpretation of the following test(s) in the Emergency Department X-Ray: My interpretation is No consolidation seen on interpretation of x-ray images. Test considered but Not performed: CT: Low suspicion for pulmonary embolism, CT angiogram not indicated. Care significantly affected by the following chronic conditions: Hypertension. Counseling: I had a detailed discussion with the patient and/or guardian regarding the historical points, exam findings, and any diagnostic results supporting the discharge/admit diagnosis, lab results, radiology results, the need for further work-up and treatment in the hospital. Response to treatment: the patient's symptoms have markedly improved after treatment. 09:12 Order name: Basic Metabolic Panel; Complete Time: 15:03 rt 09:12 Order name: CBC with Diff; Complete Time: 12:01 rt 09:12 Order name: LFT's; Complete Time: 15:03 rt 09:12 Order name: Magnesium; Complete Time: 15:03 rt 09:12 Order name: Troponin HS; Complete Time: 15:03 rt 11:42 Order name: Manual Differential; Complete Time: 12:01 EDMS 12:28 Order name: UAM; Complete Time: 12:53 rt 12:55 Order name: Urine Culture EDWI 09:12 Order name: XRAY Chest (1 view); Complete Time: 10:03 rt 09:12 Order name: EKG; Complete Time: 09:12 rt 09:12 Order name: Cardiac monitoring; Complete Time: 09:13 rt 09:12 Order name: EKG - Nurse/Tech; Complete Time: 09:13 rt 09:12 Order name: IV Saline Lock; Complete Time: 16:04 rt 09:12 Order name: Labs collected and sent; Complete Time: 11:34 rt 09:12 Order name: O2 Per Protocol; Complete Time: 09:25 rt 09:12 Order name: O2 Sat Monitoring; Complete Time: 09:25 rt 12:26 Order name: Labs - recollect needed: green top; Complete Time: 13:18 ds4 EC: Rate is 96 beats/min. Rhythm is regular, Normal Sinus Rhythm with No ectopy. QRS [place] rt is Normal. NC interval is normal. QRS interval is normal. QT interval is normal. No Q waves. T waves are Normal. No ST changes noted. Interpreted by me. Administered Medications: 10: Drug: Nitroglycerin Sublingual 0.4 mg Sublingual once; every five minute if needed x3 ph Route: Sublingual; 10:24 Drug: Aspirin PO 325 mg PO once Route: PO; ph Disposition Summary: 07/06/23 15:17 Hospitalization Ordered Notes: Hospitalization Status: Observation rt Provider: Mac Wagoner rt Condition: Stable rt Problem: new rt Symptoms: have improved rt Bed/Room Type: Standard rt Location: Telemetry/MedSurg (Inpatient)(07/06/23 16:45) ds4 Room Assignment: 405(07/06/23 16:45) ds4 Diagnosis - Chest pain, unspecified rt Forms: - Medication Reconciliation Form rt - SBAR form rt - Leadership Thank You Letter rt Signatures: Dispatcher [employer] EDSudarshan Sevilla ds4 Yasmine Gallagher, RN RN Tammie Rankin, RN RN Mauricio Salomon MD MD rt Corrections: (The following items were deleted from the chart) 16:45 15:17 Telemetry/MedSurg (observation) rt ds4 16:45 15:17 rt ds4
--- NOTE | 2023-07-06 15:18 | ER ---
Nurse's Notes [facility] Name: Amna Lundberg Age: 73 yrs Sex: Female : 1950 Arrival Date: 07/06/2023 Time: 08:58 Bed 17 Private MD: Diagnosis: Chest pain, unspecified Presentation: 09:10 Chief complaint: Left sided chest pain and nausea since last night. Was scheduled for hb heart cath this morning with Dr. Ramos/Mary. Coronavirus screen: At this time, the client does not indicate any symptoms associated with coronavirus-19. Ebola Screen: No symptoms or risks identified at this time. Initial Sepsis Screen: Does the patient meet any 2 criteria? No. Patient's initial sepsis screen is negative. Does the patient have a suspected source of infection? No. Patient's initial sepsis screen is negative. Risk Assessment: Do you want to hurt yourself or someone else? Patient reports no desire to harm self or others. Onset of symptoms was July 05, 2023. 09:10 Method Of Arrival: Wheelchair 09:10 Acuity: DOMENICO 2 hb Triage Assessment: 09:11 General: Appears in no apparent distress. uncomfortable, Behavior is calm, cooperative. hb Pain: Pain currently is 5 out of 10 on a pain scale. Neuro: Level of Consciousness is awake, alert, obeys commands, Oriented to person, place, time, situation. Cardiovascular: Patient's skin is warm and dry. Rhythm is sinus tachycardia. Respiratory: Respiratory effort is even, unlabored, Respiratory pattern is regular, symmetrical. Historical: - Allergies: 09:11 No Known Allergies; hb - PMHx: 09:11 Chronic obstructive lung disease; Chronic pain; depressive disorder; Hypertensive hb disorder; - PSHx: 09:11 Total abdominal hysterectomy; hb - Immunization history:: Adult Immunizations up to date. - Social history:: Smoking status: Patient denies any tobacco usage or history of. Screenin: [facility] ED Fall Risk Assessment (Adult) History of falling in the last 3 months, ph including since admission No falls in past 3 months (0 pts) Confusion or Disorientation No (0 pts) Intoxicated or Sedated No (0 pts) Impaired Gait No (0 pts) Mobility Assist Device Used Yes (1 pt) Altered Elimination Yes (1 pt) Score/Fall Risk Level 0 - 2 = Low Risk Oriented to surroundings, Maintained a safe environment, Provided non-skid footwear, Hourly rounding (assess needs \T\ fall precautionary measures) done, Used ambulatory aids as needed (educated on \T\ assisted with). Abuse screen: Denies threats or abuse. Denies injuries from another. 10:30 Nutritional screening: No deficits noted. Tuberculosis screening: No symptoms or risk ph factors identified. Assessment: 10:15 General: Appears in no apparent distress. comfortable, Behavior is calm, cooperative. ph Pain: Complains of pain in chest Pain does not radiate. Pain began last night. Neuro: Level of Consciousness is awake, alert, obeys commands, Oriented to person, place, time, situation. Cardiovascular: Reports chest pain, nausea, Denies fatigue, palpitations, shortness of breath, vomiting, Capillary refill < 3 seconds in bilateral fingers Patient's skin is warm and dry. Respiratory: Airway is patent Respiratory effort is even, unlabored. GI: Reports nausea, Patient currently denies abdominal pain, diarrhea, vomiting. Derm: Skin is pink, warm \T\ dry. 11:15 Reassessment: Phlebotomy at bedside for blood draw. ph 12:30 Reassessment: Patient appears in no apparent distress at this time. Patient and/or ph family updated on plan of care and expected duration. Pain level reassessed. Patient is alert, oriented x 3, equal unlabored respirations, skin warm/dry/pink. Difficulty obtaining IV access, Racheal RN at bedside for US guided IV. 13:00 Reassessment: US guided IV attempt unsuccessful, provider notified. ph 13:30 Reassessment: calibration technician at bedside, able to collect chemistries but no IV established, ph awaiting scalehouse attendant w/ vein finder. 17:09 Reassessment: Patient appears in no apparent distress at this time. Patient and/or ph family updated on plan of care and expected duration. Pain level reassessed. Patient is alert, oriented x 3, equal unlabored respirations, skin warm/dry/pink. Report called to 4th floor. Vital Signs: 09:10 BP 129 / 97; Pulse 109; Resp 20; Temp 98.1; Pulse Ox 97% on R/A; Pain 5/10; hb 10:24 BP 124 / 89; Pulse 96; Resp 18; Pulse Ox 94% on R/A; ph 12:00 BP 149 / 86; Pulse 98; Resp 18; Pulse Ox 95% on R/A; ph 13:30 BP 122 / 78; Pulse 94; Resp 18; Pulse Ox 95% on R/A; ph 14:51 BP 119 / 68; Pulse 92; Resp 18; Pulse Ox 94% on R/A; ph 16:04 BP 115 / 95; Pulse 95; Resp 18; Pulse Ox 98% on 2 lpm NC; ph 09:10 Pain Scale: Adult hb ED Course: 09:01 Patient arrived in ED. mr 09:01 Mauricio Salomon MD is Attending Physician. rt 09:11 Triage completed. hb 09:11 Arm band placed on right wrist. EKG completed in triage. Results shown to MD. hb 09:13 monitoring analyst on. Pulse ox on. NIBP on. hb 09:30 XRAY Chest (1 view) In Process Unspecified. EDMS 09:35 Yasmine Gallagher RN is Primary Nurse. ph 09:59 Missed attempt(s): 22 gauge in right antecubital area. ap3 10:30 Patient has correct armband on for positive identification. Bed in low position. Call ph light in reach. Side rails up X 1. Client placed on continuous cardiac and pulse oximetry monitoring. NIBP monitoring applied. Door closed. Noise minimized. 10:30 Patient maintains SpO2 saturation greater than 95% on room air. ph 14:00 Inserted saline lock: 22 gauge in right forearm, using aseptic technique. ,using ph aseptic technique. per LINDY Mckoy. 15:17 Mac Wagoner MD is Hospitalizing Provider. rt 17:09 No provider procedures requiring assistance completed. Patient admitted, IV remains in ph place. Administered Medications: 10:24 Drug: Nitroglycerin Sublingual 0.4 mg Sublingual once; every five minute if needed x3 ph Route: Sublingual; 10:24 Drug: Aspirin PO 325 mg PO once Route: PO; ph Medication: 10:30 VIS not applicable for this client. ph Outcome: 15:17 Decision to Hospitalize by Provider. rt 17:10 Admitted to Tele accompanied by tech, via wheelchair, room 405, with oxygen, ph 17:10 Condition: stable 17:10 Instructed on the need for admit, 17:27 Patient left the ED. ph Signatures: Dispatcher [employer] EDMS David, Joi, Reg Reg mr Yasmine Gallagher, LINDY RN ph Tammie Pike, LINDY RN Gracie Reeder RN RN ap3 Mauricio Salomon MD MD rt
--- NOTE | 2023-07-06 16:22 | P.HP ---
Certification for Inpatient Patient admitted to: Observation With expected LOS: <2 Midnights Patient will require the following post-hospital care: None Practitioner: I am a practitioner with admitting privileges, knowledge of patient current condition, hospital course, and medical plan of care. Services: Services provided to patient in accordance with Admission requirements found in Title 42 Section 412.3 of the Code of Federal Regulations Patient History Date of Service: 07/06/23 Reason for admission: Chest pain History of Present Illness: 73-year-old female with history of COPD on chronic home O2, hypertension, hyperlipidemia, hypothyroidism, anemia, CKD 3 presents to the emergency department chief complaint of chest pain. She reports she been having ongoing chest pain over the course of the last month and a half but has been worse the past few days. Pain is in the anterior left chest wall described as pressure nonradiating occasionally associated with nausea. She had an abnormal stress test approximate 1 month ago, has never had a heart catheterization in the past. She was evaluated in the emergency department her labs are significant for leukocytosis white blood cell count 17 hemoglobin 11.4 hematocrit 34.6 creatinine 1.75 GFR 31 magnesium 1.5 initial high-sensitivity troponin 6.9. EKG without STEMI criteria ED provider wishes to admit patient for further evaluation and management of chest pain, patient was seen by training facilitator in the ED Allergies No Known Allergies Allergy (Verified 05/10/22 11:45) Home Medications: Amlodipine Besylate/Benazepril [Amlodipine-Benazepril 10-40 mg] 1 each PO DAILY 05/10/22 Atorvastatin Calcium 40 mg PO DAILY 05/10/22 Esomeprazole Mag Trihydrate [Nexium] 40 mg PO DAILY 05/10/22 Levothyroxine Sodium 100 mcg PO BEDTIME 05/10/22 Pioglitazone HCl [Actos] 15 mg PO DAILY 05/10/22 Spironolactone 25 mg PO DAILY 05/10/22 Albuterol Sulfate [Albuterol Sulfate Hfa] 2 puff IH Q6H PRN 30 Days #1 inh 10/01/22 predniSONE [Prednisone*] 20 mg PO BIDL 4 Days #8 tab 10/01/22 - Past Medical/Surgical History Diabetic: No -: Hypertension -: COPD -: DM 2 -: Obesity -: Hypothyroidism -: GERD -: Hyperlipidemia -: Appendectomy -: Hysterectomy -: Cholecystectomy Psychosocial/ Personal History: Patient lives at home with her daughter. - Family History Mother -: Cancer - Social History Smoking Status: Never smoker Alcohol use: No CD- Drugs: No Caffeine use: Yes Place of Residence: Home Review of Systems 10-point ROS is otherwise unremarkable Cardiovascular: Chest Pain Physical Examination - Physical Exam General: Alert, In no apparent distress, Oriented x3, Obese HEENT: Atraumatic, PERRLA, Mucous membr. moist/pink Neck: Supple, 2+ carotid pulse no bruit, No LAD Respiratory: Clear to auscultation bilaterally, Normal air movement Cardiovascular: Regular rate/rhythm, Normal S1 S2 Gastrointestinal: Normal bowel sounds, No tenderness Musculoskeletal: No tenderness Integumentary: No rashes Neurological: Normal speech, Normal strength at 5/5 x4 extr, Normal tone, Normal affect - Studies Laboratory Data (last 24 hrs) 07/06/23 07/06/23 13:12 11:20 WBC 17.00 H Hgb 11.4 L Hct 34.6 L Plt Count 259 Sodium 135 L Potassium 4.0 BUN 29 H Creatinine 1.75 H Glucose 99 Magnesium 1.5 L Total Bilirubin 0.4 AST 11 L ALT 17 Alkaline Phosphatase 150 H Assessment and Plan - Plan Assessment: Chest pain rule out ACS COPD on chronic home O2 CKD 3 Hypertension Hyperlipidemia Hypothyroidism GERD Depression Plan: Chest pain rule out ACS Recent abnormal stress test Trend troponins, monitor on telemetry Plan for heart catheterization in the next 24 hours Continue aspirin, statin COPD on chronic home O2 Reports she has oxygen available at home Monitors her sats closely, uses it as needed when sats less than 90 As needed nebulizer treatments CKD 3 Will give gentle IV fluids in anticipation of heart catheterization, monitor renal function closely Hypertension Hyperlipidemia Hypothyroidism GERD Depression Continue home medications once verified DVT PPX: Subcu heparin Code status: Full Discharge Plan: Home Plan to discharge in: 24 Hours - Advance Directives Does patient have a Living Will: No Does patient have a Durable POA for Healthcare: No - Code Status/Comfort Care Code Status Assessed: Yes (Full code) Critical Care: No Time Spent Managing Pts Care (In Minutes): 70
[2023-07-06] MEDS ORDERED: ALBUTEROL 2.5 MG/3 ML NEB SOL NEB PRN (17:57)
[2023-07-06] MEDS ORDERED: PNEUMOCOCCAL VACCINE 0.5 ML IMVAC ONE (18:00)
[2023-07-06] MEDS ORDERED: INFLUENZA VACCINE (for 6+ mo) 0.5 ML DOSE IMVAC ONE (18:00)
[2023-07-06 18:16] VITALS: BMI 36.1
[2023-07-06] MEDS: CEFTRIAXONE 1,000 MG in NA CHLORIDE 0.9% 50 ML IVPB SCH (18:21)
[2023-07-06] MEDS: MORPHINE 2 MG/ML SYR IV PRN (18:22)
[2023-07-06] MEDS: NA CHLORIDE 0.9% 1,000 ML IV SCH (18:22)
[2023-07-06] MEDS: ATORVASTATIN 40 MG TAB PO SCH (21:05)
[2023-07-06] MEDS: HEPARIN 5000 UNIT/ML 1 ML VIAL SQ SCH (21:05)
[2023-07-07] MEDS: ZOLPIDEM TARTRATE 5 MG TABLET PO SCH (00:31)
[2023-07-07] MEDS: ASPIRIN EC 81 MG TAB PO SCH (07:48)
[2023-07-07 09:14] LABS: Anion Gap 10.7 mEq/L (5.0-15.0)
[2023-07-07 09:19] LABS: Potassium 4.7 mEq/L (3.5-5.1); Thyroid Stimulating Hormone 4.73 uIU/mL (0.358-3.740)
[2023-07-07] MEDS: NA CHLORIDE 0.9% 500 ML ONE (12:43)
[2023-07-07] MEDS ORDERED: LIDOCAINE 1% 20 ML MDV ONE (13:53)
[2023-07-07] MEDS ORDERED: HEPARIN 5000 UNIT/ML 1 ML VIAL ONE (13:53)
[2023-07-07] MEDS ORDERED: HEPARIN 10,000 UNIT/10 ML VIAL IV ONE (13:53)
[2023-07-07] MEDS ORDERED: HEPA 1000U/500MLS 2,000 UNIT/1,000 ML BAG IV ONE (13:53)
[2023-07-07] MEDS ORDERED: VERAPAMIL HCL 10 MG/4 ML VIAL IV ONE (13:54)
[2023-07-07] MEDS ORDERED: FENTANYL CITR 100 MCG/2 ML ONE (14:10)
[2023-07-07] MEDS ORDERED: MIDAZOLAM HCL 2 MG/2 ML INJ ONE (14:10)
--- NOTE | 2023-07-07 14:44 | P.PN ---
Date of Service: 07/07/23 Subjective: Still complains of chest pain Reports bright red blood per rectum with bowel movement for the past month or so ROS: 10 point ROS as noted above, otherwise negative Physical exam GEN: Alert, oriented, NAD HEENT: Normal conjunctiva, sclera anicteric CV: Regular rate and rhythm, no edema Pulm: Nonlabored respirations on room air ABD: Soft, nontender, nondistended MSK: No joint tenderness Integumentary: No rashes Neuro: Normal speech, normal affect Vitals reviewed Problem List Chest pain rule out ACS COPD on chronic home O2 CKD 3 Hypertension Hyperlipidemia Hypothyroidism GERD Depression Plan: Chest pain rule out ACS Recent abnormal stress test Trend troponins, monitor on telemetry Plan for heart catheterization today, await results Continue aspirin, statin COPD on chronic home O2 Reports she has oxygen available at home Monitors her sats closely, uses it as needed when sats less than 90 As needed nebulizer treatments CKD 3 Will give gentle IV fluids in anticipation of heart catheterization, monitor renal function closely Hypertension Hyperlipidemia Hypothyroidism GERD Depression Continue home medications once verified DVT PPX: Subcu heparin Code status: Full Discharge Plan: Home Plan to discharge in: 24 Hours Time Spent Managing Pts Care (In Minutes): 35
--- NOTE | 2023-07-07 17:20 | OP ---
Date of Procedure: 07/07/2023 Surgeon: ANJANA HART Procedures Performed: 1.Selective coronary angiogram. 2.Left heart catheterization. Indication: Unstable angina with abnormal stress test. Access: Right radial artery 6-Venezuelan, closed with TR band. Complications: None. Bleeding: Less than 20 mL. Total Sedation Time: 20 minutes. Description Of Procedure: After risks, benefits, and alternatives were explained, patient agreed to procedure and signed informed consent. The patient [facility], prepped and draped in usual sterile fashion. Then, I accessed right radial artery using [employer] atric micropuncture kit, a 6-Venezuelan Slender sheath, and I used ultrasound to guide access and then I took 5-Venezuelan tiger 4 catheter over J-wire into the aortic root, engaged left main and right coronary artery, took standard views and catheter was pushed over the wire into the LV, measured the LVEDP an d pullback did not record any gradient. Then, I removed the catheter and sheath and placed TR band w ith good hemostasis. Findings: 1.Left main: Large and normal. 2.LAD: Normal. Normal diagonal branches with large vessel. 3.Left circumflex: Normal. 4.Normal OM branches. 5.RCA: Moderate size, dominant, and normal. 6.Elevated LVEDP at 25 mmHg. Conclusion: 1.Normal coronary arteries. 2.Elevated LVEDP likely due to diastolic heart failure. Recommendation: Medical management, specifically diuretics and salt restriction. The patient can be released from care standpoint. Follow up as outpatient in 2 weeks post discharge. SR/MODL Voice ID: [id number] Report ID: [id number]
[2023-07-07 18:30] LABS: Absolute Eosinophils 0.2 K/uL (0-0.5); Basophils % 0.5 % (0-1.3); Hemoglobin 9.3 g/dL (12.0-15.0); MPV 8.8 fL (7.6-11.3)
[2023-07-07 18:34] LABS: Absolute Lymphocytes (CBC) 1.2 K/uL (0.7-4.9); Eosinophils % 1.7 % (0-4.4); Hematocrit 27.9 % (36.0-45.0); Lymphocytes % 13.2 % (15.3-44.8); Platelets 210 thou/uL (152-406)
[2023-07-07 18:58] LABS: Band Neutrophils 1 % (0-1); Blood Morphology Comment NOT SEEN (NOT SEEN); Eosinophils 3 % (0-3); Platelet Estimate ADEQ; White Blood Cell Scan OK (OK)
--- NOTE | 2023-07-07 19:12 | CON ---
Date of Consultation: 07/07/2023 Reason For Consultation: Chest pain. Second hospitalization. History Of Present Illness: 73-year-old female, history of hypertension, COPD, diabetes, acid reflux , and dyslipidemia. She presented to the emergency room because of chest pain, left-sided, with radi ation to the shoulder and left upper extremities at rest and with activities. She had a stress test that showed reversible anterior wall defect and the cardiac enzymes have been negative. S he had a negative cardiac enzymes also on recent hospitalization where she presented with chest pain and sent out for outpatient stress test that showed a reversible ischemia. At the present time, she is chest pain free. Past Medical History: As outlined above in the HPI. Medications: Refer to reconciliation sheet for detailed list. Allergies: NO KNOWN DRUG ALLERGIES. Family History: No premature coronary artery disease or cancer. Social History: Does not smoke or drink or use any drugs. Review of Systems: All systems reviewed and they were negative except as mentioned in the HPI. Physical Examination: Vital Signs: Reviewed. Head and Neck: Pupils are equal, reactive to light. Intact eye movements. No JVD. No cervical lym phadenopathy. Neck is supple. Thyroid is not enlarged. Lungs: Clear to auscultation bilaterally. No rhonchi, wheezing, or crackles. No accessory muscle u se. Heart: Regular rate and rhythm. No extra sounds. Abdomen: Soft, nontender. Bowel sounds positive. No organomegaly. No masses or hernia. No rigidi ty or rebound. Extremities: No edema, clubbing, or cyanosis. Intact pulses. Skin: No rash or nodule. Neurologic: Alert, awake, oriented x3. No acute focal deficits appreciated. Lymph nodes: No cervical or axillary lymphadenopathy. Investigations: Labs were reviewed. Assessment And Recommendations: 1.Chest pain. Negative troponins. Positive stress test. This is suggestive of unstable angina. K eep NPO. Plan for coronary angiogram today. 2.Hypertension. Blood pressure is borderline elevated. Resume home medication and adjust medicatio ns accordingly. 3.Diabetes. Check hemoglobin A1c and check sugars 3 times a day and adjust medications as needed. SR/MODL Voice ID: [id number] Report ID: [id number]
[2023-07-07] MEDS: HYDROCODONE/APAP 7.5/325 MG TAB PO PRN (21:41)
[2023-07-08 06:44] LABS: Absolute Basophils 0.1 K/uL (0-0.5); Absolute Eosinophils 0.2 K/uL (0-0.5); Absolute Lymphocytes (CBC) 1.1 K/uL (0.7-4.9); Basophils % 0.9 % (0-1.3); Eosinophils % 3.3 % (0-4.4); Hematocrit 28.6 % (36.0-45.0); Hemoglobin 9.6 g/dL (12.0-15.0); Lymphocytes % 18.1 % (15.3-44.8); MCV 87.4 fL (80-100); MPV 8.8 fL (7.6-11.3); Platelets 203 thou/uL (152-406); RBC Red Blood Cell Count 3.27 M/uL (3.86-4.86)
[2023-07-08 06:53] LABS: Anion Gap 8.3 mEq/L (5.0-15.0); Potassium 4.3 mEq/L (3.5-5.1)
[2023-07-08 10:08] VITALS: O2SAT 94
[2023-07-08 10:33] VITALS: BP 184/82; TEMP 97.9
--- NOTE | 2023-07-08 11:38 | P.DS ---
Admission Date: 07/06/23 Discharge Date: 07/08/23 Disposition: ROUTINE DISCHARGE Discharge Condition: GOOD Reason for Admission: Chest pain Consultations: Cardiology Procedures: Left heart cath 07/06-normal coronaries, elevated LVEDP Brief History of Present Illness: 73-year-old female with history of COPD on chronic home O2, hypertension, hyperlipidemia, hypothyroidism, anemia, CKD 3 presents to the emergency department chief complaint of chest pain. She reports she been having ongoing chest pain over the course of the last month and a half but has been worse the past few days. Pain is in the anterior left chest wall described as pressure nonradiating occasionally associated with nausea. She had an abnormal stress test approximate 1 month ago, has never had a heart catheterization in the past. She was evaluated in the emergency department her labs are significant for leukocytosis white blood cell count 17 hemoglobin 11.4 hematocrit 34.6 creatinine 1.75 GFR 31 magnesium 1.5 initial high-sensitivity troponin 6.9. 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 She had a heart catheterization performed on 07/07/2023 which showed normal coronaries with elevated LVEDP. Cardiology recommended diuretics at discharge. Patient also has a known history of GERD, gastric ulcers. For this she will be prescribed Protonix daily. Patient also reports some dysuria, had questionable UTI on urinalysis. She received Rocephin for 2 days, I discharge she will take cefdinir 3 mg twice daily for an additional 3 days Baseline creatinine is around 1.6, at discharge creatinine is 1.37 New medications at discharge: Cefdinir 300 mg per mouth twice daily for 3 days Lasix 20 mg by mouth daily until follow-up with cardiology Protonix 40 mg by mouth daily Please follow-up your primary care doctor 1 to 2 weeks Follow-up with cardiologyDr. Ramos in 2-3 weeks Information for a GI physician Dr. Sheppard has also been provided for you to follow-up with in regards of endoscopy/colonoscopy Vital Signs/Physical Exam: Temp Pulse Resp BP Pulse Ox 97.9 F 69 16 184/82 H 99 07/08/23 08:10 07/08/23 08:10 07/08/23 10:16 07/08/23 08:10 07/08/23 10:16 General: Alert, In no apparent distress, Oriented x3 HEENT: Atraumatic, PERRLA Neck: Supple, JVD not distended Respiratory: Clear to auscultation bilaterally, Normal air movement Cardiovascular: Regular rate/rhythm, Normal S1 S2 Gastrointestinal: Normal bowel sounds, No tenderness Musculoskeletal: No tenderness Integumentary: No rashes Neurological: Normal speech, Normal tone, Normal affect Laboratory Data at Discharge: WBC 6.30 thou/uL (4.3-10.9) 07/08/23 05:58 Hgb 9.6 g/dL (12.0-15.0) L 07/08/23 05:58 Hct 28.6 % (36.0-45.0) L 07/08/23 05:58 Plt Count 203 thou/uL (152-406) 07/08/23 05:58 Sodium 137 mEq/L (136-145) 07/08/23 05:58 Potassium 4.3 mEq/L (3.5-5.1) 07/08/23 05:58 BUN 14 mg/dL (7-18) 07/08/23 05:58 Creatinine 1.37 mg/dL (0.55-1.02) H 07/08/23 05:58 Glucose 100 mg/dL (74-106) 07/08/23 05:58 Magnesium 1.4 mg/dL (1.6-2.4) L 07/08/23 05:58 Total Bilirubin 0.4 mg/dL (0.2-1.0) 07/06/23 13:12 AST 11 U/L (15-37) L 07/06/23 13:12 ALT 17 U/L (13-56) 07/06/23 13:12 Alkaline Phosphatase 150 U/L (45-117) H 07/06/23 13:12 Triglycerides 105 mg/dL (<150) 07/07/23 08:30 Cholesterol 137 mg/dL (<200) 07/07/23 08:30 HDL Cholesterol 42 mg/dL (40-60) 07/07/23 08:30 Cholesterol/HDL Ratio 3.26 07/07/23 08:30 Home Medications: Amlodipine Besylate/Benazepril [Amlodipine-Benazepril 10-40 mg] 1 each PO DAILY 07/06/23 Atorvastatin Calcium [Lipitor] 40 mg PO BEDTIME 07/06/23 Benzonatate 200 mg PO Q8HP PRN 07/06/23 Brompheniramine/Pseudoephed/Dm [Bio-Dtuss Dmx 1-30-20 mg/5 ml] 5 ml PO Q4HP PRN 07/06/23 Hydrocodone 7.5/APAP 325 [[place] 7.5/325 mg*] 1 tab PO TIDP PRN 07/06/23 Levothyroxine Sodium 200 mcg PO DAILY 07/06/23 Loratadine [Claritin*] 10 mg PO DAILY 07/06/23 Metformin ER [Glucophage ER*] 500 mg PO DAILY 07/06/23 Ramelteon 8 mg PO BEDTIME 07/06/23 Sertraline [Zoloft*] 100 mg PO DAILY 07/06/23 Cefdinir [Cefdinir*] 300 mg PO BID 3 Days #6 cap 07/08/23 Furosemide [Lasix] 20 mg PO DAILY #30 tab 07/08/23 Pantoprazole [Protonix Tab] 40 mg PO DAILY #30 tab 07/08/23 New Medications: Cefdinir [Cefdinir*] 300 mg PO BID 3 Days #6 cap Furosemide [Lasix] 20 mg PO DAILY #30 tab Pantoprazole [Protonix Tab] 40 mg PO DAILY #30 tab Physician Discharge Instructions: Patient was admitted to the hospital for chest pain, had an abnormal stress test in the past. She had a heart catheterization performed on 07/07/2023 which showed normal coronaries with elevated LVEDP. Cardiology recommended diuretics at discharge. Patient also has a known history of GERD, gastric ulcers. For this she will be prescribed Protonix daily. Patient also reports some dysuria, had questionable UTI on urinalysis. She received Rocephin for 2 days, I discharge she will take cefdinir 3 mg twice daily for an additional 3 days Baseline creatinine is around 1.6, at discharge creatinine is 1.37 New medications at discharge: Cefdinir 300 mg per mouth twice daily for 3 days Lasix 20 mg by mouth daily until follow-up with cardiology Protonix 40 mg by mouth daily Please follow-up your primary care doctor 1 to 2 weeks Follow-up with cardiologyDr. Ramos in 2-3 weeks Information for a GI physician Dr. Sheppard has also been provided for you to follow-up with in regards of endoscopy/colonoscopy Diet: Regular Activity: Ad shana Followup: JENI ARAUJO [Primary Care Provider] - 1 Week Victoriano Ramos MD [ACTIVE - CAN ADMIT] - 1-2 Weeks Stas Lindo MD [ASSOCIATE-ACTIVE - CAN ADMIT] - 1-2 Weeks Time spent managing pt's care (in minutes): 35
--- NOTE | 2023-07-11 17:23 | EKG ---
Test Date: 2023-07-06 Test Time: 09:11:23 Jewel Inserter: OZZIE MEASUREMENT RESULTS: Intervals: Rate: 96 ME: 156 QRSD: 86 QT: 356 QTc: 449 [place]: P: 82 ME: 156 QRS: -3 T: 89 INTERPRETIVE STATEMENTS: Normal sinus rhythm Normal ECG Compared to ECG 06/28/2023 11:48:34 No significant changes Electronically Signed On 07-11-23 17:08:38 FISHER TRAMMEL NET by Victoriano Ramos
== END 2023-07-08 12:04 | disposition home or self-care (01) ==
LOC: ER 08:58 → ERHOLD 15:56 → 4TH 17:10
PROVIDERS: ADMIT Hospitalist; ATTEND Hospitalist
PROC: 4A023N7 Measurement of Cardiac Sampling and Pressure, Left Heart, Percutaneous Approach (ICD-10-PCS; principal; 2023-07-07)
PROC: B2111ZZ Fluoroscopy of Multiple Coronary Arteries using Low Osmolar Contrast (ICD-10-PCS; 2023-07-07)
DX: R07.9 Chest pain, unspecified (principal); J44.9 Chronic obstructive pulmonary disease, unspecified; I12.9 Hypertensive chronic kidney disease with stage 1 through stage 4 chronic kidney disease, or unspecified chronic kidney disease; E11.22 Type 2 diabetes mellitus with diabetic chronic kidney disease; N18.30 Chronic kidney disease, stage 3 unspecified; E78.5 Hyperlipidemia, unspecified; E03.9 Hypothyroidism, unspecified; R30.0 Dysuria; D64.9 Anemia, unspecified; K21.9 Gastro-esophageal reflux disease without esophagitis; K25.9 Gastric ulcer, unspecified as acute or chronic, without hemorrhage or perforation; F32.A Depression, unspecified; Z99.81 Dependence on supplemental oxygen; Z79.84 Long term (current) use of oral hypoglycemic drugs; Z79.899 Other long term (current) drug therapy; E66.9 Obesity, unspecified; Z90.49 Acquired absence of other specified parts of digestive tract; Z80.9 Family history of malignant neoplasm, unspecified
CPT/HCPCS: 93005; 87088; 85025 ×3; 81001; 87086; 80048 ×3; 36415 ×2; 83735 ×2; 80061; 80076; 84443; 84484 ×3; 84439; 84145; 71045; 93458; 76937; 99285; C1893; Q9966; J1644 ×3; J2001; J2250; J3010; J2270; G0378 ×5; J7040; J7030 ×2; J0696 ×3; 99152; 99153

== ENCOUNTER 2024-12-19 12:57 | Emergency (ER) | payer OTHER ==
--- OUTSIDE RECORDS SUMMARY | 2024-12-19 13:00 | XMS REPORT | Continuity of Care Document ---
Author Name Unknown Address [address] [place] [address] [address] [place] [address] Organization [facility] [place] Address [address] [facility] [address] [place] [address] Care Team Providers Care Dredge Master Name Role Phone Unavailable Unavailable Unavailable Results Test Description Test Time Test Comments Results Result Co mments Source CULTURE, URINE 2024-04-26 11:43:58 SPECIMEN NUMBER: [id number] CULTURE, URINE SPECIMEN NUMBER: [id number] SOURCE: URINE REPORT STATUS: FINAL ISOLATE NUMBER 1: ORGANISM: 04/25/2024 >100,000 CFU/ML GRAM NEGATIVE BACILLI IDENTIFICATION: 04/26/2024 ESCHERICHIA COLI E. COLI AMOX ICILLIN/CA SENSITIVE <=8/4AMPICILLIN RESISTANT >16CEFAZOLIN SENSITIVE <=2CEFTRIAXONE SENSITIVE <=1CIPROFLOXACIN SENSITIVE <=0.25LEVOFLOXACIN SENSITIVE <=0.5NITROFURANTOIN SENSITIVE <=32PIP/TAZOBAC SENSITIVE <=16TOBRAMYCIN SENSITIVE <=4TRIMETH/SULFA RESISTANT >2/38 NOTE: NUMBERS DISPLAYED REPRESENT MINIMUM INHIBITORY CONCENTRATION (DEONDRE) WHICH IS EXPRESSED IN MCG/ML. UNLESS OTHERWISE INDICATED, ALL TESTING PERFORMED AT [facility] [address] [place] [address] COUNSELING PROGRAM LEADER: JONN MILTON M.D. CLIA NUMBER [id number] [facility] [place]. [id number] TSH, THIRD [id number] 06:16:39* Test Item Value Reference Range Interpretation Comme nts TSH, THIRD GENERATION (test code = 2821) 12.000 UIU/ML 0.400-4.100 H LIPID [id number] 05:36:52* Test Item Value Reference Range Interpretation [...] SPECIMENS. FOR MOREINFORMATION, SEE CLIENT ANNOUNCEMENT AT [email or web address] [email or web address] RATIO LDL/HDL (test code = 223) 4.17 RATIO <3.22 H COMPREHENSIVE METABOLIC [id number] 05:36:52* Test Item Value Reference Range Interpretation Comme nts GLUCOSE (test code = 221) 114 MG/DL 70-99 H BUN (test code = 2207) 19 MG/DL 8-23 CREATININE (test code = 2214) 1.39 MG/DL 0.60-1.30 H eGFR (2020 CKD-EPI) (test code = 02724) 41 ML/MIN/1.73 >60 L CALC BUN/CREAT (test code = 2235) 14 RATIO 6-28 SODIUM (test code = 223) 140 MEQ/L 133-146 POTASSIUM (test code = 2228) 4.1 MEQ/L 3.5-5.4 CHLORIDE (test code = 2215) 100 MEQ/L 95-107 CARBON DIOXIDE (test code = 2206) 27 MEQ/L 19-31 CALCIUM (test code = 220) 9.6 MG/DL 8.5-10.5 PROTEIN, TOTAL (test code = 222) 6.8 G/DL 6.1-8.3 ALBUMIN (test code = 2201) 4.1 G/DL 3.5-5.2 CALC GLOBULIN (test code = 2240) 2.7 G/DL 1.9-3.7 CALC A/G RATIO (test code = 2234) 1.5 RATIO 1.0-2.6 BILIRUBIN, TOTAL (test code = 220) <0.2 MG/DL See_Comment [Automated me ssage] The system which generated this result transmitted reference range: <=1.2. The reference range was not used to interpret this result as normal/abnormal. ALKALINE PHOSPHATASE (test code = 2204) 171 U/L 40-142 H AST (test code = 2218) 16 U/L 9-40 ALT (test code = 2219) 13 U/L 5-40 HEMOGLOBIN [id number] 03:19:58* Test Item Value Reference Range Interpretation Comme nts HEMOGLOBIN A1c (test code = 18017) 6.1 % 4.2-5.6 H [employer] GUIDELINES FOR HGB A1C: [...] OR LABORATORY CONSULTATION. CBC W/AUTO DIFF WITH [id number] 02:26:20* Test Item Value Reference Range Interpretation [...] = 1065) 0.0 /100 WBC'S See_Comment [Automated [employer] ge] The system which generated this result [...] 0.00-0.10 ABS NUCLEATED RBCS (test code = 74105) 0.00 K/UL 0.00-0.11 CULTURE, [id number] 16:00:26SPECIMEN NUMBER: [id number] CULTURE, URINE SPECIMEN NUMBER: [id number] SPECIMEN COMMENT: URINE SOURCE: URINE REPORT STATUS: FINAL FINAL REPORT: 07/23/2022 50-100,000 CFU/ML UROGENITAL CONNOR PRESENT NO C [facility] has important pathology staff changes effective 07/06/2022. New pathology staff will provide uninterrupted, excellent patient care and clinical consultation. See URL: [email or web address]. UNLESS OTHERWISE INDICATED, ALL TESTING PERFORMED AT [facility]. [address] [place] [address] COUNSELING PROGRAM LEADER: Nury BRAVOIA NUMBER [id number] [facility] [place]. [id number]
[2024-12-19] MEDS ORDERED: ONDANSETRON 4 MG/2 ML VIAL ONE (13:31)
[2024-12-19 13:38] LABS: Absolute Lymphocytes (CBC) 1.2 K/uL (0.7-4.9); Hematocrit 37.9 % (36.0-45.0); Hemoglobin 12.1 g/dL (12.0-15.0); MCH 27.8 pg (27.0-35.0); MCHC 32.0 g/dL (32.0-36.0); MCV 87.0 fL (80-100); MPV 8.5 fL (7.6-11.3); Nucleated RBC Absolute Count 0.0 (0-0); Nucleated Red Blood Cells % 0.1 % (0-0); RBC Red Blood Cell Count 4.36 M/uL (3.86-4.86); White Blood Count 11.30 thou/uL (4.3-10.9)
[2024-12-19 14:25] LABS: ALT/SGPT 32.0 U/L (13-56); AST/SGOT 16.0 U/L (15-37); Albumin 2.9 g/dL (3.4-5.0); Albumin/Globulin Ratio 0.7 (1.1-1.8); Alkaline Phosphatase 141.0 U/L (45-117); Anion Gap 9.8 mEq/L (5.0-15.0); BUN Blood Urea Nitrogen 16.0 mg/dL (7-18); Globulin 3.9 g/dL (2.3-3.5); Glucose Level 109.0 mg/dL (74-106); Lipase 16.0 U/L (13-75); Potassium 3.8 mEq/L (3.5-5.1); Troponin High Sensitivity 9.8 pg/mL (<58.9)
--- NOTE | 2024-12-19 15:12 | RAD REPORT ---
EXAMINATION: CT ABDOMEN AND PELVIS WITH CONTRAST CLINICAL INDICATION: ABD PAIN TECHNIQUE: CT abdomen and pelvis was performed, after the administration of IV contrast, as per [facility] protocol. Axial, sagittal and coronal reconstructions were obtained. One or more of the following dose reduction techniques were used: Automated exposure control, adjustment of the mA and k V according to patient size, and iterative reconstruction. Unless otherwise specified, incidental findings do not require dedicated imaging follow-up. COMPARISON: 10/10/2024 FINDINGS: LOWER CHEST: The visualized lung bases are clear. LIVER: Mild fatty liver is present. No focal lesion or biliary dilatation is seen. Cholecystectomy clips. SPLEEN: Normal size. No focal lesion. PANCREAS: No mass, ductal dilation, or christine-pancreatic fluid. ADRENALS: Normal; no mass. KIDNEYS: Normal size and contour. No hydronephrosis. GASTROINTESTINAL TRACT: No evidence of free air, significant intra-abdominal free fluid, bowel obstru ction or abscess. There is moderate diverticulosis coli of the sigmoid colon with mild reticulation of the adjacent fat.. APPENDIX: Appendix surgically absent. LYMPH NODES: No lymphadenopathy. MUSCULOSKELETAL: Mild lower lumbar spondylosis. ADDITIONAL FINDINGS: Aortoiliac atherosclerosis. IMPRESSION: Early findings of acute sigmoid diverticulitis or possible. Advise correlation with left lower quadra nt symptomology. No acute abnormality seen elsewhere.
--- NOTE | 2024-12-19 15:20 | EDPHYS ---
Physician Documentation [facility] Name: Amna Lundberg Age: 74 yrs Sex: Female : 1950 Arrival Date: 12/19/2024 Time: 12:57 Bed 4 Private MD: ED Physician Héctor Snyder HPI: 12/19 13:53 This 74 yrs old Female presents to ER via Wheelchair with complaints of ms3 Nausea/Vomiting/Diarrhea, Fever. 13:53 74-year-old female past medical history of COPD, chronic pain, depression, hypertension ms3 presents to the emergency department for vomiting and abdominal pain that has been ongoing for 2 weeks. Patient states the pain is described as stabbing and located generally throughout her abdomen. Patient rates her discomfort an 8/10. Patient denies fevers, chills, shortness of breath.. Historical: - Allergies: 13:20 No Known Allergies; ss - PMHx: 13:20 Chronic obstructive lung disease; Chronic pain; depressive disorder; Hypertensive ss disorder; - PSHx: 13:20 Appendectomy; Total abdominal hysterectomy; ss - Immunization history:: Adult Immunizations unknown. - Infectious Disease History:: Denies. - Social history:: Smoking status: Patient denies any tobacco usage or history of. ROS: 13:53 Constitutional: Negative for fever, and chills. Cardiovascular: Negative for chest ms3 pain, and palpitations. Respiratory: Negative for shortness of breath, cough, wheezing, and pleuritic chest pain, 13:53 MS/Extremity: Negative for injury and deformity, Skin: Negative for injury, rash, and discoloration, 13:53 Abdomen/GI: Positive for abdominal pain, nausea and vomiting, Exam: 13:53 Constitutional: This is a well developed, well nourished patient who is awake, alert, ms3 and in no acute distress. Cardiovascular: Regular rate and rhythm with a normal S1 and S2. No gallops, murmurs, or rubs. Normal PMI, no JVD. No pulse deficits. Respiratory: Lungs have equal breath sounds bilaterally, clear to auscultation and percussion. No rales, rhonchi or wheezes noted. No increased work of breathing, no retractions or nasal flaring. 13:53 Abdomen/GI: Inspection: abdomen appears normal, Bowel sounds: normal, Palpation: mild abdominal tenderness, in all quadrants, 13:53 ECG was reviewed by the Attending Physician. ms3 Vital Signs: 13:20 BP 147 / 65; Pulse 88; Resp 16; Temp 98.4(O); Pulse Ox 97% on R/A; Weight 104.33 kg; ss Height 5 ft. 3 in. ; Pain 8/10; 14:03 BP 143 / 51; Pulse 86; Resp 18; Pulse Ox 95% on R/A; ph 15:00 BP 146 / 62; Pulse 84; Resp 18; Pulse Ox 94% on R/A; ph 16:00 BP 138 / 56; Pulse 89; Resp 18; Temp 98; Pulse Ox 94% on R/A; ph 13:20 Body Mass Index 40.74 (104.33 kg, 160.02 cm) ss 13:20 Pain Scale: Adult ss MDM: 13:14 Medical Screening Exam initiated ms3 13:53 Differential diagnosis: Nonspecific abd pain, gastritis, pancreatitis, diverticulitis, ms3 viral gastroenteritis, gastroenteritis. 19:39 Data reviewed: vital signs, nurses notes, lab test result(s), radiologic studies, and ms3 as a result, I will discharge patient. I considered the following discharge prescriptions or medication management in the emergency department Medications were administered in the Emergency Department. See MAR. Counseling: I had a detailed discussion with the patient and/or guardian regarding the historical points, exam findings, and any diagnostic results supporting the discharge/admit diagnosis, lab results, radiology results, the need for outpatient follow up, to return to the emergency department if symptoms worsen or persist or if there are any questions or concerns that arise at home. Special discussion: Based on the patient's Hx, exam, and Dx evaluation, there is no indication for emergent surgery or inpatient Tx. It is understood by the patient/guardian that if the Sx's persist or worsen they need to return immediately for re-evaluation. ED course: Discussed CT findings of diverticulitis with patient. Patient given prescription for Augmentin. All questions were answered. Patient to follow-up with her primary care physician in 2 to 3 days. Return precautions discussed include worsening symptoms, fevers, vomiting, rectal bleeding, or any other concerns. On reevaluation patient is alert and orient x 4, no apparent distress, nontoxic-appearing, speaking full sentences. 12/19 13:05 Order name: CBC with Diff; Complete Time: 14:41 ms3 12/19 13:05 Order name: CMP; Complete Time: 14:41 ms3 12/19 13:05 Order name: Lipase; Complete Time: 14:41 ms3 12/19 13:05 Order name: Troponin High Sensitivity; Complete Time: 14:41 ms3 12/19 13:30 Order name: CT Abd/Pelvis - IV Contrast Only; Complete Time: 15:14 ms3 12/19 13:05 Order name: IV Saline Lock; Complete Time: 13:30 ms3 12/19 13:05 Order name: Labs collected and sent; Complete Time: 13:30 ms3 12/19 13:05 Order name: EKG - Nurse/Tech; Complete Time: 14:00 ms3 12/19 13:43 Order name: Labs - recollect needed: green; Complete Time: 13:46 bc6 EC:53 Rate is 80 beats/min. Rhythm is regular. QRS [place] is Normal. TN interval is normal. QRS ms3 interval is normal. Clinical impression: NSR w/ Non-specific ST/T Changes. Interpreted by me. Reviewed by me. Administered Medications: 13:46 Drug: Ondansetron IVP 4 mg IVP once; over 2 minutes Route: IVP; Site: right antecubital;bp 16:54 Follow up: Response: No adverse reaction ph Disposition Summary: 12/19/24 15:19 Discharge Ordered Notes: Location: Home ms3 Condition: Stable ms3 Diagnosis - Abdominal pain, Generalized ms3 - Sigmoid diverticulitis ms3 Followup: ms3 - With: Private Physician - When: 2 - 3 days - Reason: Recheck today's complaints Discharge Instructions: - Discharge Summary Sheet ms3 - Diverticulitis, Invp-xw-Ctun ms3 Forms: - Medication Reconciliation Form ms3 - Antibiotic Education ms3 - Prescription Opioid Use ms3 - Patient Portal Instructions ms3 - Leadership Thank You Letter ms3 Prescriptions: - Augmentin 875-125 mg Oral Tablet - take 1 tablet ORAL route every 12 hours for 10 days; 20 tablet; Refills: 0, ms3 Product Selection Permitted Signatures: Dispatcher [facility] Stephanie Perdue RN RN Yasmine Avelar RN RN Madhu Fernandez RN RN bp SnyderHéctor higgins DO DO ms3 Lubna Koch bc6 Corrections: (The following items were deleted from the chart) 13:05 13:05 CBC+H.LAB.BRZ ordered. EDMS EDMS 13:05 13:05 COMPREHENSIVE METABOLIC PANEL+C.LAB.BRZ ordered. EDMS EDMS 13:05 13:05 LIPASE+C.LAB.BRZ ordered. EDMS EDMS 13:05 13:05 Troponin High Sensitivity+C.LAB.BRZ ordered. EDMS EDMS 13:21 13:20 PSHx: R oopherectomy (Total abdominal hysterectomy); ss ss
--- NOTE | 2024-12-19 15:20 | ER ---
Nurse's Notes [facility] Name: Amna Lundberg Age: 74 yrs Sex: Female : 1950 Arrival Date: 12/19/2024 Time: 12:57 Bed 4 Private MD: Diagnosis: Abdominal pain, Generalized;Sigmoid diverticulitis Presentation: 12/19 13:21 Chief complaint: Patient states: abd pain x 1 week, N/V that began last night. Also c/o ss episodes of urinary frequency. Coronavirus screen: Client denies travel out of the [place] in the last 14 days. Ebola Screen: Patient denies exposure to infectious person. Patient denies travel to an Ebola-affected area in the 21 days before illness onset. Initial Sepsis Screen: Does the patient meet any 2 criteria? No. Patient's initial sepsis screen is negative. Does the patient have a suspected source of infection? No. Patient's initial sepsis screen is negative. Risk Assessment: Do you want to hurt yourself or someone else? Patient reports no desire to harm self or others. Onset of symptoms was December 12, 2024. 13:21 Acuity: DOMENICO 3 ss 13:21 Method Of Arrival: Wheelchair ss Historical: - Allergies: 13:20 No Known Allergies; ss - PMHx: 13:20 Chronic obstructive lung disease; Chronic pain; depressive disorder; Hypertensive ss disorder; - PSHx: 13:20 Appendectomy; Total abdominal hysterectomy; ss - Immunization history:: Adult Immunizations unknown. - Infectious Disease History:: Denies. - Social history:: Smoking status: Patient denies any tobacco usage or history of. Screenin:01 [facility] ED Fall Risk Assessment (Adult) History of falling in the last 3 months, ph including since admission No falls in past 3 months (0 pts) Confusion or Disorientation No (0 pts) Intoxicated or Sedated No (0 pts) Impaired Gait Yes (1 pt) Mobility Assist Device Used Yes (1 pt) Altered Elimination No (0 pt) Score/Fall Risk Level 0 - 2 = Low Risk Oriented to surroundings, Maintained a safe environment, Hourly rounding (assess needs \T\ fall precautionary measures) done, Used ambulatory aids as needed (educated on \T\ assisted with). Abuse screen: Denies threats or abuse. Denies injuries from another. Nutritional screening: No deficits noted. Tuberculosis screening: No symptoms or risk factors identified. Assessment: 14:01 General: Appears in no apparent distress. Behavior is calm, cooperative. Pain: ph Complains of pain in left upper quadrant. Neuro: Level of Consciousness is awake, alert, obeys commands, Oriented to person, place, time, situation. Cardiovascular: Capillary refill < 3 seconds in bilateral fingers Patient's skin is warm and dry. Respiratory: Airway is patent Respiratory effort is even, unlabored. GI: Abdomen is non-distended, obese, Reports upper abdominal pain, diarrhea, nausea, vomiting. Derm: Skin is pink, warm \T\ dry. 16:20 Reassessment: D/C pending ride home, attempted to call pt's daughter and grandson, no ph answer at either number, left voice mail for daughter. Vital Signs: 13:20 BP 147 / 65; Pulse 88; Resp 16; Temp 98.4(O); Pulse Ox 97% on R/A; Weight 104.33 kg; ss Height 5 ft. 3 in. ; Pain 8/10; 14:03 BP 143 / 51; Pulse 86; Resp 18; Pulse Ox 95% on R/A; ph 15:00 BP 146 / 62; Pulse 84; Resp 18; Pulse Ox 94% on R/A; ph 16:00 BP 138 / 56; Pulse 89; Resp 18; Temp 98; Pulse Ox 94% on R/A; ph 13:20 Body Mass Index 40.74 (104.33 kg, 160.02 cm) ss 13:20 Pain Scale: Adult ss ED Course: 13:01 Patient arrived in ED. cj3 13:04 Héctor Snyder DO is Attending Physician. ms3 13:17 Madhu Fernandez, LINDY is Primary Nurse. bp 13:20 Arm band placed on right wrist. ss 13:23 Triage completed. ss 13:31 Initial lab(s) drawn, by hi, sent to lab. Inserted saline lock: 22 gauge in right bp forearm, using aseptic technique. Blood collected. Flushed with 10 mL NS. 14:01 Patient has correct armband on for positive identification. Bed in low position. Call ph light in reach. Side rails up X 1. Pulse ox on. NIBP on. Door closed. Noise minimized. Warm blanket given. 14:01 EKG done, by ED staff, reviewed by Héctor Snyder DO. ph 15:03 CT Abd/Pelvis - IV Contrast Only In Process Unspecified. EDMS 16:53 No provider procedures requiring assistance completed. IV discontinued, intact, ph bleeding controlled, No redness/swelling at site. Pressure dressing applied. Administered Medications: 13:46 Drug: Ondansetron IVP 4 mg IVP once; over 2 minutes Route: IVP; Site: right antecubital;bp 16:54 Follow up: Response: No adverse reaction ph Medication: 14:02 VIS not applicable for this client. ph Outcome: 15:19 Discharge ordered by MD. ms3 16:53 Discharged to home via wheelchair, with family, ph 16:53 Condition: good 16:53 Discharge instructions given to patient, Instructed on discharge instructions, follow up and referral plans. medication usage, Demonstrated understanding of instructions, follow-up care, medications, Prescriptions given X 1, 16:53 Patient left the ED. ph Signatures: Dispatcher [employer] EDMS Stephanie Hinojosa RN RN Yasmine Gallagher RN RN Madhu Fernandez, RN RN Héctor Solitario DO DO ms3 Alissa Valerio cj3 Corrections: (The following items were deleted from the chart) 13:21 13:20 PSHx: R oopherectomy (Total abdominal hysterectomy); [facility]
[2024-12-19 19:04] VITALS: O2SAT 94
[2024-12-19 19:05] VITALS: BP 138/56; TEMP 98
== END 2024-12-19 16:53 | disposition home or self-care (01) ==
LOC: ER 12:57
DX: K57.32 Diverticulitis of large intestine without perforation or abscess without bleeding (principal)
CPT/HCPCS: 93005; 85025; 36415; 84484; 83690; 80053; 74177; 96374; 99284; Q9967; J2405